=== PATIENT | female | born 1955 | race African-American/Black ===

== ENCOUNTER 2020-01-08 09:53 | Outpatient (REF) | payer OTHER, SELFPAY ==
--- NOTE | 2020-01-08 10:01 | XR_ITS ---
EXAMINATION: XR HIP, LEFT CLINICAL INFORMATION: Left hip pain COMPARISON: CT pelvis 07/19/2018 TECHNIQUE: AP view pelvis is performed along with AP and frog-lateral projections left hip. FINDINGS: There is no fracture, dislocation, destructive process. 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 The bony pelvis shows no destructive process. There are scattered surgical clips overlying the lower abdomen and central pelvis and anchors overlying the superior pubic rami. Bowel gas unremarkable. The left hip shows no fracture or dislocation or destructive process. No focal hip narrowing or subchondral sclerosis or erosive change. Bilateral hip soft tissue planes symmetric. IMPRESSION: Unremarkable left hip.
== END 2020-01-08 09:54 | disposition home or self-care (01) ==
LOC: HO.XRAY 09:53
PROVIDERS: PCP Physician Assistant; Visit Provider Physician Assistant
DX: M25.552 Pain in left hip (principal); Z91.81 History of falling
CPT/HCPCS: 73502

== ENCOUNTER 2020-02-09 14:05 | Outpatient (REF) | payer OTHER, SELFPAY ==
[2020-02-10 13:54] LABS: CT PCR NOT DETECTED (Not Detect.); NG PCR NOT DETECTED (Not Detect.)
== END 2020-02-09 14:06 | disposition home or self-care (01) ==
LOC: HO.LAB 14:05
PROVIDERS: PCP Physician Assistant; Referring Provider Physician Assistant; Visit Provider Advanced Practice Midwife
DX: Z01.419 Encounter for gynecological examination (general) (routine) without abnormal findings (principal); Z20.2 Contact with and (suspected) exposure to infections with a predominantly sexual mode of transmission; F17.210 Nicotine dependence, cigarettes, uncomplicated
CPT/HCPCS: 87491; 87591

== ENCOUNTER 2020-02-26 11:40 | Outpatient (REF) | payer OTHER, SELFPAY ==
[2020-02-26 13:52] LABS: Syphilis Screen Nonreactive (Nonreactive)
[2020-02-28 08:15] LABS: HBsAGNum1 0.23 S/CO (0.00-0.99); Hepatitis B Surface Antigen Negative (Negative)
[2020-02-28 08:39] LABS: HIV AB/AG Nonreactive (Nonreactive); HIV Num 1 0.08 S/CO (0.00-0.99); ~HepC Num1 0.11 S/CO (0.00-0.79); ~Hepatitis C Antibody Nonreactive (Nonreactive)
== END 2020-02-26 11:41 | disposition home or self-care (01) ==
LOC: HO.LAB 11:40
PROVIDERS: PCP Physician Assistant; Visit Provider Advanced Practice Midwife
DX: Z20.2 Contact with and (suspected) exposure to infections with a predominantly sexual mode of transmission (principal)
CPT/HCPCS: 86780; 86803; 87340; 87389

== ENCOUNTER 2020-05-08 15:19 | Outpatient (REF) | payer OTHER, SELFPAY ==
--- NOTE | ~2020-05-08 | MM_ITS ---
EXAMINATION: MM SCREENING DIGITAL BREAST TOMOSYNTHESIS, BILATERAL CLINICAL INFORMATION: Screening. Asymptomatic. The lifetime risk of breast cancer based on the Tyrer-Cuzick Model is 2%. COMPARISON: Mammography: 07/11/2018, outside exam 12/11/2016 ([facility]). TECHNIQUE: Digital breast tomosynthesis is performed in both the craniocaudal and mediolateral oblique views along with computer-aided detection (CAD). Synthesized 2D images are generated from the tomosynthesis. FINDINGS: There are scattered areas of fibroglandular density (ACR BI-RADS breast composition Category b). There are no significant masses, abnormal calcifications, or other abnormalities. The axilla and skin contours are unremarkable. The punctate densities bilateral axilla noted on prior study are not present on current MLO views, suggesting prior deodorant artifact as suspected. No significant changes. MM/MM tomosynthesis screening BI IMPRESSION: No mammographic evidence of malignancy. ASSESSMENT: BI-RADS 1: Negative RECOMMENDATION: Routine annual mammography screening. This patient's information was entered into a reminder system with a target due date for their next mammogram.
== END 2020-05-08 15:20 | disposition home or self-care (01) ==
LOC: HO.MAMMO 15:19
PROVIDERS: Visit Provider Advanced Practice Midwife
DX: Z12.31 Encounter for screening mammogram for malignant neoplasm of breast (principal)
CPT/HCPCS: 77062; 77063; 77066; 77067

== ENCOUNTER 2020-05-31 08:29 | Outpatient (REF) | payer OTHER, SELFPAY ==
[2020-05-31 09:39] LABS: Hematocrit 38.8 % (37-47); Hemoglobin 12.5 g/dl (12.0-16.0); Mean Corpuscular HGB Conc 32.2 g/dl (31.0-35.0); Mean Corpuscular Hemoglobin 31.4 pg (27.0-33.0); Mean Corpuscular Volume 97.5 fL (80-98); Mean Platelet Volume 10.8 fL (9.4-12.3); Platelet Count 212 X10*3/uL (160-400); Red Blood Count 3.98 X10*6/uL (4.20-5.50); Red Cell Distribution Width 13.1 % (11.0-16.0); White Blood Count 5.8 X10*3/uL (4.8-10.8)
[2020-05-31 10:15] LABS: Alanine Aminotransferase < 6 U/L (0-31); Alkaline Phosphatase 85 U/L (39-117); Anion Gap 10 (12-20); Aspartate Amino Transferase 14 U/L (5-31); Bilirubin Total 0.3 mg/dL (0.0-1.0); Blood Urea Nitrogen 16 mg/dL (9-16); Carbon Dioxide 30 mmol/L (22-29); Chloride 109 mmol/L (96-108); Cholesterol 153 mg/dL; Estimated Glomerular Filt Rate > 60; Glucose Fasting 89 mg/dL (60-99); HDL Cholesterol 53 mg/dL; LDL Cholesterol Calculated 87 mg/dl; Potassium 4.2 mmol/L (3.3-5.1); Sodium 145 mmol/L (135-145); Total Protein 6.8 g/dL (6.5-8.0); Triglycerides 65 mg/dL
[2020-05-31 10:23] LABS: TSH reflex Free T4 0.86 uIU/mL (0.32-4.0)
== END 2020-05-31 08:30 | disposition home or self-care (01) ==
LOC: HO.LAB 08:29
PROVIDERS: PCP Physician Assistant; Visit Provider Physician Assistant
DX: I10 Essential (primary) hypertension (principal); Z13.1 Encounter for screening for diabetes mellitus; Z13.29 Encounter for screening for other suspected endocrine disorder; Z13.220 Encounter for screening for lipoid disorders
CPT/HCPCS: 36415; 80053; 80061; 84443; 85027

== ENCOUNTER → 2020-06-04 15:16 | Outpatient (BNVA) | payer OTHER, SELFPAY | PROVIDERS: Visit Provider Advanced Practice Midwife | DX: Z13.89 Encounter for screening for other disorder (principal) | CPT/HCPCS: Q3014 ==

== ENCOUNTER 2020-09-09 12:50 | Outpatient (REF) | payer OTHER, SELFPAY ==
[2020-09-09 13:21] LABS: Hematocrit 36.9 % (37-47); Hemoglobin 11.6 g/dl (12.0-16.0); Mean Corpuscular HGB Conc 31.4 g/dl (31.0-35.0); Mean Corpuscular Hemoglobin 30.9 pg (27.0-33.0); Mean Corpuscular Volume 98.4 fL (80-98); Mean Platelet Volume 10.7 fL (9.4-12.3); Platelet Count 212 X10*3/uL (160-400); Red Blood Count 3.75 X10*6/uL (4.20-5.50); Red Cell Distribution Width 12.8 % (11.0-16.0); White Blood Count 6.8 X10*3/uL (4.8-10.8)
[2020-09-09 13:39] LABS: Anion Gap 10 (12-20); Blood Urea Nitrogen 18 mg/dL (9-16); Carbon Dioxide 26 mmol/L (22-29); Chloride 111 mmol/L (96-108); Estimated Glomerular Filt Rate > 60; Glucose Random 86 mg/dL (60-115); Sodium 143 mmol/L (135-145)
[2020-09-09 14:03] LABS: TSH reflex Free T4 0.68 uIU/mL (0.32-4.0)
== END 2020-09-09 12:51 | disposition home or self-care (01) ==
LOC: HO.LAB 12:50
PROVIDERS: PCP Physician Assistant; Visit Provider Physician Assistant
DX: Z13.29 Encounter for screening for other suspected endocrine disorder (principal); I10 Essential (primary) hypertension; J41.0 Simple chronic bronchitis
CPT/HCPCS: 36415; 80048; 84443; 85027

== ENCOUNTER 2020-11-26 14:41 | Emergency (ER) | payer OTHER, SELFPAY ==
--- NOTE | 2020-11-26 15:37 | PC.NURSE ---
called to triage x 2 no answer
== END 2020-11-26 17:57 | disposition left against medical advice (07) ==
PROVIDERS: Emergency Provider Emergency Medicine; PCP Physician Assistant
DX: R10.9 Unspecified abdominal pain (principal)

== ENCOUNTER 2020-11-29 11:51 | Outpatient (REF) | payer OTHER, SELFPAY ==
[2020-11-29 12:06] LABS: MANUAL DIFF FLAG NO
[2020-11-29 12:07] LABS: Basophils Percent Auto 0.5 % (0-2); Eosinophils Absolute Auto 0.1 X10*3/uL (0.0-0.4); Eosinophils Percent Auto 1.5 % (0-4); Hematocrit 35.7 % (37-47); Hemoglobin 11.8 g/dl (12.0-16.0); Imm Gran Abs Auto 0.01 X10*3/uL (0.00-0.03); Imm Gran Pct Auto 0.2 % (0.0-0.4); Lymphocytes Absolute Auto 2.4 X10*3/uL (1.2-4.9); Lymphocytes Percent Auto 43.7 % (20-40); Mean Corpuscular HGB Conc 33.1 g/dl (31.0-35.0); Mean Corpuscular Hemoglobin 31.6 pg (27.0-33.0); Mean Corpuscular Volume 95.5 fL (80-98); Mean Platelet Volume 10.3 fL (9.4-12.3); Monocytes Absolute Auto 0.6 X10*3/uL (0.1-1.2); Monocytes Percent Auto 10.7 % (2-11); Neutrophils Absolute Auto 2.4 X10*3/uL (2.0-8.3); Neutrophils Percent Auto 43.4 % (45-73); Platelet Count 229 X10*3/uL (160-400); Red Blood Count 3.74 X10*6/uL (4.20-5.50); Red Cell Distribution Width 13.6 % (11.0-16.0); White Blood Count 5.5 X10*3/uL (4.8-10.8)
[2020-11-29 12:27] LABS: Lactic Acid 0.9 mmol/L (0.5-2.0)
[2020-11-29 12:44] LABS: Alanine Aminotransferase < 6 U/L (0-31); Albumin Level 3.9 g/dL (3.5-5.0); Alkaline Phosphatase 80 U/L (39-117); Anion Gap 11 (12-20); Aspartate Amino Transferase 13 U/L (5-31); Bilirubin Direct 0.2 mg/dL (0.0-0.5); Bilirubin Total 0.4 mg/dL (0.0-1.0); Blood Urea Nitrogen 12 mg/dL (9-16); Calcium 9.5 mg/dL (8.4-10.2); Carbon Dioxide 24 mmol/L (22-29); Chloride 107 mmol/L (96-108); Estimated Glomerular Filt Rate > 60; Glucose Random 79 mg/dL (60-115); Potassium 4.3 mmol/L (3.3-5.1); Sodium 138 mmol/L (135-145); Total Protein 6.8 g/dL (6.5-8.0)
== END 2020-11-29 11:52 | disposition home or self-care (01) ==
LOC: HO.LAB 11:51
PROVIDERS: PCP Physician Assistant; Visit Provider Physician Assistant
DX: Z20.822 Contact with and (suspected) exposure to COVID-19 (principal); N12 Tubulo-interstitial nephritis, not specified as acute or chronic; R10.9 Unspecified abdominal pain
CPT/HCPCS: 36415; 80048; 80076; 83605; 85025

== ENCOUNTER 2021-02-10 14:32 | Outpatient (REF) | payer OTHER, SELFPAY ==
[2021-02-15 04:27] LABS: HPV 16 RNA NOT DETECTED (NOT DETECTED); HPV mRNA E6/E7 rflx Detected (Not Detected)
== END 2021-02-10 14:33 | disposition home or self-care (01) ==
LOC: HO.LAB 14:32
PROVIDERS: Advanced Practice Midwife; Visit Provider Advanced Practice Midwife
DX: Z01.419 Encounter for gynecological examination (general) (routine) without abnormal findings (principal); N95.1 Menopausal and female climacteric states; N95.2 Postmenopausal atrophic vaginitis; B37.2 Candidiasis of skin and nail; F17.210 Nicotine dependence, cigarettes, uncomplicated; Z71.6 Tobacco abuse counseling
CPT/HCPCS: 87624; 87625; 88142

== ENCOUNTER 2021-03-04 15:33 | Outpatient (REF) | payer OTHER, SELFPAY ==
--- NOTE | ~2021-03-04 | XR_ITS ---
EXAMINATION: XR ABDOMEN COMPLETE CLINICAL INDICATION: Gastroesophageal reflux COMPARISON: None TECHNIQUE: 2 views of the abdomen. FINDINGS: Nonspecific bowel gas pattern, no evidence of bowel obstruction. No free air under the diaphragm. Included lung bases are clear. There are surgical clips. Osseous structures grossly unremarkable. XR/XR abdomen 3V IMPRESSION: Nonspecific bowel gas pattern. No evidence of obstruction.
[2021-03-04 16:12] LABS: Hematocrit 39.3 % (37.0-47.0); Hemoglobin 12.7 g/dl (12.0-16.0); Mean Corpuscular HGB Conc 32.3 g/dl (31.0-35.0); Mean Corpuscular Hemoglobin 31.7 pg (27.0-33.0); Mean Platelet Volume 10.4 fL (9.4-12.3); Platelet Count 205 X10*3/uL (160-400); Red Blood Count 4.01 X10*6/uL (4.20-5.50); Red Cell Distribution Width 13.1 % (11.0-16.0); White Blood Count 8.4 X10*3/uL (4.8-10.8)
[2021-03-04 16:29] LABS: Alanine Aminotransferase 6 U/L (0-31); Albumin Level 4.4 g/dL (3.5-5.0); Alkaline Phosphatase 85 U/L (39-117); Anion Gap 15 (12-20); Aspartate Amino Transferase 14 U/L (5-31); Bilirubin Total 0.4 mg/dL (0.0-1.0); Blood Urea Nitrogen 20 mg/dL (9-16); Calcium 9.9 mg/dL (8.4-10.2); Carbon Dioxide 25 mmol/L (22-29); Chloride 105 mmol/L (96-108); Cholesterol 166 mg/dL; Estimated Glomerular Filt Rate > 60; Glucose Fasting 81 mg/dL (60-99); HDL Cholesterol 60 mg/dL; Iron 96 mcg/dL (30-160); LDL Cholesterol Calculated 94 mg/dl; Percent Iron Saturation 31 % (15-50); Potassium 3.8 mmol/L (3.3-5.1); Sodium 141 mmol/L (135-145); Total Iron Binding Capacity 306 mcg/dL (228-428); Total Protein 7.6 g/dL (6.5-8.0); Triglycerides 62 mg/dL; Unsaturated Iron Binding 210 ug/dL
[2021-03-04 16:49] LABS: TSH reflex Free T4 1.37 uIU/mL (0.32-4.0)
[2021-03-04 17:00] LABS: Folate 15.3 ng/mL (> or = 4.0); Vitamin B12 323 pg/mL (200-900)
== END 2021-03-04 15:34 | disposition home or self-care (01) ==
LOC: HO.XRAY 15:33
PROVIDERS: PCP Physician Assistant; Visit Provider Physician Assistant
DX: Z13.29 Encounter for screening for other suspected endocrine disorder (principal); Z13.220 Encounter for screening for lipoid disorders; K21.9 Gastro-esophageal reflux disease without esophagitis; D50.9 Iron deficiency anemia, unspecified
CPT/HCPCS: 36415; 74021; 80048; 80053; 80061; 82607; 82746; 83540; 84443; 85027

== ENCOUNTER 2021-03-19 09:22 | Outpatient (REF) | payer OTHER, SELFPAY ==
--- NOTE | ~2021-03-19 | XR_ITS ---
EXAMINATION: LEFT SHOULDER 3 VIEWS. RIGHT KNEE 3 VIEWS. CLINICAL INFORMATION: Pain. Pain. COMPARISON: None TECHNIQUE: 3 views of the left shoulder. 3 views of the right knee. FINDINGS: Left shoulder: No fracture, dislocation or destructive lesion. AC joint intact. No erosive change. Right knee: Bone density normal. No joint effusion, fracture, dislocation or destructive process. XR/XR knee RT 3V IMPRESSION: Unremarkable studies.
--- NOTE | ~2021-03-19 | XR_ITS ---
EXAMINATION: LEFT SHOULDER 3 VIEWS. RIGHT KNEE 3 VIEWS. CLINICAL INFORMATION: Pain. Pain. COMPARISON: None TECHNIQUE: 3 views of the left shoulder. 3 views of the right knee. FINDINGS: Left shoulder: No fracture, dislocation or destructive lesion. AC joint intact. No erosive change. Right knee: Bone density normal. No joint effusion, fracture, dislocation or destructive process. XR/XR shoulder LT min 2V IMPRESSION: Unremarkable studies.
== END 2021-03-19 09:23 | disposition home or self-care (01) ==
LOC: HO.XRAY 09:22
PROVIDERS: PCP Physician Assistant; Visit Provider Physician Assistant
DX: M25.561 Pain in right knee (principal); M25.512 Pain in left shoulder
CPT/HCPCS: 73030; 73562

== ENCOUNTER 2021-04-21 15:00 | Outpatient (RCR) | payer OTHER, SELFPAY ==
--- NOTE | 2021-04-11 13:21 | MHC.PT.EP ---
[facility] [place] [facility] [address] [phone] F: [phone] F: [phone] F: [phone] F: [phone] Physical Therapy Plan of Care Date of Evaluation: Date of Surgery: Diagnosis: LEFT SHOULDER PAIN Assessment: JILL IS A PLEASANT 65 YO FEMALE WHO PRESENTS WITH INCREASING SHOULDER PAIN, NO REGAN. UPON EXAM IMPAIRMENTS INCLUDE DECREASED ROM AND STRENGTH, ALTERED POSTURE AND POSITIONING, DECREASED SOFT TISSUE MOBILITY AND INCREASED PAIN. FUNCTIONAL LIMITATIONS INCLUDE DECREASED ABILITY TO PERFORM HOMEMAKING AND SELF CARE TASKS, DECREASED ABILITY TO CARE FOR ADULT SON, DECREASED ABILITY TO PERFORM LIFTING, REACHING, PUSHING, PULLING AND CARRYING. SHE REPORTS DISRUPTED SLEEP. Frequency and Duration: The patient will be seen 2 X WEEKS FOR 4 WEEKS Short Term Goals: INITATE HEP AND PROMOTE SELF MANAGEMENT OF SYMPTOMS [employer] Goals: Full, pain free ROM in 4 weeks Full UE strength, pain free in 4 weeks To perform computer and work tasks without restriction and pain no greater than 2/10 in [address] at minimum of 5# into cabinet at shoulder height in 4 weeks Treatment Plan: Modalities to reduce pain, spasms and effusion. Manual therapy to restore motion and function. Therapeutic exercise to improve strength and flexibility. Neuromuscular re-education for posture and balance. Therapeutic activities to return to functional activities of daily living. Electronically signed by: FRANKIE MACIAS PT, DPT Please sign and return to therapist. Thank you for your referral.
== END 2021-05-20 09:06 | disposition home or self-care (01) ==
LOC: HO.PT 15:00
PROVIDERS: PCP Physician Assistant; Visit Provider Nurse Practitioner Family
DX: M25.512 Pain in left shoulder (principal)
CPT/HCPCS: 97033; 97110; 97140; 97161; 97535

== ENCOUNTER 2022-07-28 10:00 | Outpatient (REF) | payer MEDICARE, SELFPAY ==
[2022-07-28 10:26] LABS: Hematocrit 40.2 % (37.0-47.0); Hemoglobin 13.2 g/dl (12.0-16.0); Mean Corpuscular HGB Conc 32.8 g/dl (31.0-35.0); Mean Corpuscular Hemoglobin 31.3 pg (27.0-33.0); Mean Corpuscular Volume 95.3 fL (80.0-98.0); Mean Platelet Volume 10.9 fL (9.4-12.3); Platelet Count 192 X10*3/uL (160-400); Red Blood Count 4.22 X10*6/uL (4.20-5.50); Red Cell Distribution Width 13.1 % (11.0-16.0); White Blood Count 7.8 X10*3/uL (4.8-10.8)
[2022-07-28 12:15] LABS: Alanine Aminotransferase 9 U/L (0-31); Albumin Level 4.3 g/dL (3.5-5.0); Alkaline Phosphatase 99 U/L (39-117); Anion Gap 12 (12-20); Aspartate Amino Transferase 24 U/L (5-31); Bilirubin Total 0.9 mg/dL (0.0-1.0); Blood Urea Nitrogen 16 mg/dL (9-16); Carbon Dioxide 24 mmol/L (22-29); Chloride 110 mmol/L (96-108); Cholesterol 133 mg/dL; Estimated Glomerular Filt Rate > 60; Glucose Fasting 92 mg/dL (60-99); HDL Cholesterol 65 mg/dL; LDL Cholesterol Calculated 57 mg/dl; Potassium 5.1 mmol/L (3.3-5.1); Sodium 141 mmol/L (135-145); Total Protein 7.8 g/dL (6.5-8.0); Triglycerides 57 mg/dL
[2022-07-28 12:16] LABS: TSH reflex Free T4 1.84 uIU/mL (0.32-4.0)
== END 2022-07-28 10:01 | disposition home or self-care (01) ==
LOC: HO.LAB 10:00
PROVIDERS: PCP Physician Assistant; Visit Provider Physician Assistant
DX: E78.5 Hyperlipidemia, unspecified (principal)
CPT/HCPCS: 36415; 80053; 80061; 84443; 85027

== ENCOUNTER 2022-08-25 14:48 | Inpatient (IN) | payer MEDICARE, SELFPAY ==
--- NOTE | ~2022-08-25 | CT_ITS ---
EXAMINATION: CT ABDOMEN AND PELVIS WITHOUT CONTRAST CLINICAL INFORMATION: UTI not responding to antibiotics. COMPARISON: 07/19/2018 TECHNIQUE: Multidetector volumetric imaging was performed from the superior aspect of the liver through the pubic symphysis. Sagittal and coronal reformatted images were obtained on the technologist's workstation. This CT examination was performed using dose optimization techniques as appropriate, variously including the following: *Automated exposure control *Adjustment of mA and/or kV according to patient size (this includes techniques or standardized protocols for targeted exams where dose is matched to indication/reason for exam; i.e. extremities or head) *Use of iterative reconstruction technique DLP: 339 mGy-cm FINDINGS: LUNG BASES: Coronary artery calcifications. The lung bases are clear. LIVER, GALLBLADDER, AND BILIARY TREE: The liver is normal in size, shape, and attenuation. No biliary ductal dilatation. Subcentimeter hypoattenuating lesions are too small to fully characterize.. Contracted gallbladder which is not well assessed. PANCREAS: Unremarkable. SPLEEN: Unremarkable. ADRENAL GLANDS: Unremarkable. KIDNEYS AND URETERS: There is no hydronephrosis. Gas within the right renal collecting system is noted, consistent with emphysematous pyelitis. No surrounding inflammatory changes. Calcification in the right midpole renal cortex. There is a left upper pole renal calculus measuring 1.4 x 0.6 cm. This measures 790 Hounsfield units and is 7.5 cm from the posterior axillary line. BLADDER: Normally distended bladder without wall thickening. Gas within the bladder lumen. GASTROINTESTINAL TRACT: The stomach is unremarkable. Normal caliber small bowel. No obstruction. Anastomosis noted in the anterior midabdomen. Moderate colonic stool burden. No free air or free fluid. ABDOMINAL WALL: No significant hernia is appreciated. LYMPH NODES: Normal. VASCULAR: Normal caliber aorta with moderate atherosclerotic calcifications. PELVIC VISCERA: No pelvic mass. OSSEOUS STRUCTURES: No acute or suspicious osseous abnormality. Mild degenerative changes in the hips. CT/CT abdomen pelvis wo IV con IMPRESSION: 1. Gas within the right renal collecting system, consistent with emphysematous pyelitis. No surrounding inflammatory changes. Gas also present within the bladder lumen. 2. Nonobstructing left upper pole renal calculus. Fleischner guidelines were followed.
[2022-08-25 15:31] VITALS: BP 116/79; PULSE 88; RESP 20; TEMP 37.1; O2SAT 97; BMI 22.7
--- NOTE | 2022-08-25 15:31 | ED.FEMALEGU ---
HPI - Female Genitourinary General Chief complaint: Urogenital-Female Stated complaint: UTI Time Seen by Provider: 08/25/22 18:58 Source: patient Mode of arrival: ambulatory Limitations: no limitations History of Present Illness HPI Narrative: This is a 66-year-old female history of latent tuberculosis, COPD, diabetes, anxiety, recurrent UTIs, prolonged QT, hyperlipidemia, major depression presenting for evaluation of urinary frequency, dark urine, suprapubic discomfort, bilateral flank pain for the past week or so worsening. Patient reports she was recently diagnosed with a UTI and she thinks her symptoms are worsening despite being on Macrobid for symptoms. Patient tells me she self catheterizes. She reports that since she started the Macrobid her symptoms have significantly worsened. Patient reports fevers at home T-max today 100.4 degrees F taking Tylenol with relief. Patient tells me she feels awful and she has had a history of urosepsis in the past with UTIs that are difficult to treat with antibiotic she tells me. Patient denies chest pain, shortness of breath, nausea, vomiting, headache, vision changes, changes in bowel habits, hematuria. Related Data Home Medications Medication Instructions Recorded Confirmed metoprolol tartrate 25 mg tablet 12.5 mg PO BID 02/09/20 08/25/22 oxcarbazepine 300 mg tablet 300 mg PO BID 02/09/20 08/25/22 cyclosporine 0.05 % eye drops in a 1 drp ophthalmic (eye) Q12H 02/10/21 08/25/22 dropperette (Restasis) atorvastatin 40 mg tablet 40 mg PO DAILY 06/23/22 08/25/22 fluticasone propionate 50 1 spray intranasal BID 08/25/22 08/25/22 mcg/actuation nasal spray,suspension methenamine hippurate 1 gram tablet 1 g PO DAILY 08/25/22 08/25/22 nitrofurantoin 1 cap PO BID 08/25/22 08/25/22 monohydrate/macrocrystals 100 mg capsule omeprazole 20 mg capsule,delayed 20 mg PO DAILY@0630 08/25/22 08/25/22 release propylene glycol 1 %-glycerin 0.3 1 drp ophthalmic (eye) TID 08/25/22 08/25/22 % eye drops (Artificial Tears (glycerin-peg)) Previous Rx's Medication Instructions Recorded ascorbic acid (vitamin C) 500 mg 500 mg PO DAILY 90 days #90 tabs 12/16/20 tablet cetirizine 10 mg tablet 10 mg PO DAILY 90 days #90 tabs 06/10/21 albuterol sulfate 90 mcg/actuation 2 puff inhalation Q4H PRN 06/23/22 aerosol inhaler shortness of breath or wheezing 30 days #8.5 grams cholecalciferol (vitamin D3) 25 25 mcg PO DAILY #30 caps 06/23/22 mcg (1,000 unit) capsule (Vitamin D3) clonazepam 0.5 mg tablet 0.5 mg PO BID PRN anxiety 30 days 06/23/22 #60 tabs fluticasone propionate 110 110 mcg inhalation BID 30 days #12 06/23/22 mcg/actuation HFA aerosol inhaler grams zolpidem 10 mg tablet 10 mg PO BEDTIME 7 days #7 tabs 08/18/22 Allergies Allergy/AdvReac Type Severity Reaction Status Date / Time lamotrigine [From Lamictal] Allergy Mild RASH Verified 08/25/22 15:36 doxycycline [DOXYCYCLINE] Allergy Unknown stomach Verified 08/25/22 15:36 upset nefazodone [From Serzone] Allergy Unknown unknown Verified 08/25/22 15:36 penicillin V AdvReac Unknown vomitting, Verified 08/25/22 15:36 nausea bupropion [From Wellbutrin] AdvReac dizziness, Verified 08/25/22 15:36 shakiness Environmental Allergy Unknown SEASONAL Uncoded 06/23/22 16:04 NASAL DRIP, ITCHY EYES TEA AdvReac Mild NAUSEA & Uncoded 06/23/22 16:04 VOMITING TUNA FISH AdvReac Mild NAUSEA & Uncoded 06/23/22 16:04 VOMITIING Review of Systems Review of Systems: Constitutional : No Weight loss, No Fever, No Chills, No Fatigue, No Malaise ENT/Mouth : No sore throat, No Rhinorrhea Eyes: No Eye Pain, No Swelling, No Redness Cardiovascular : No Chest Pain, No SOB, No Dyspnea on Exertion, No Orthopnea, No Edema, No Palpitations Respiratory : No Cough, No Sputum, No Wheezing Gastrointestinal : No Nausea, No Vomiting, No Diarrhea, No Constipation, No abdominal Pain, No Hematochezia, No Melena Genitourinary : No Dysuria, + Urinary Frequency, No Hematuria, + dark urine Musculoskeletal : No joint pain, No Myalgias, No Joint Swelling Skin : No Skin Lesions, No rash Neuro : No Weakness, No Numbness, No Dizziness, No Headache Psych : No Anxiety/Panic, No Depression All other systems reviewed and are negative Yes all other systems are reviewed and are negative [facility] Past Medical History Attestation statement: The following information was validated with the patient. Source: old records reviewed and nursing notes reviewed Medical History Bipolar 1 disorder Bladder cancer Bronchitis COPD (chronic obstructive pulmonary disease) Depression GERD (gastroesophageal reflux disease) Insomnia Narrow angle glaucoma suspect PTSD (post-traumatic stress disorder) Sarcoid Surgical History History of bladder surgery History of dental surgery History of eye surgery Hx of cataract surgery Hx of hysterectomy Family History Family History Father Lung cancer Mother Seizure HTN (hypertension) Diabetes mellitus Pacemaker Son In good health Maternal Grandmother Ovarian cancer Other Mental problem Social History Social History Housing: Homeless Alcohol intake: never Patient Tobacco Use Status: Current everyday Tobacco user Tobacco use type: Cigarette Cigarette Packs Per Day: 0.5 Cigarettes Per Day: 7 Smoked in Last 30 Days: No e-Cigarette/Vaping Use: Never Used Second Hand Smoke Exposure: Yes Use of substances other than those prescribed or required for medical reasons: No Advance Directives: No Advance Directives Information Provided: No service: No Current occupational status: disabled Sexual orientation: Straight/Heterosexual Gender identity: Female Cognitive needs: No Hearing needs: No Vision needs: Yes (glasses) Physical Exam Vital Signs: Vital Signs: Last Vital Signs Temp 98.1 F 08/25/22 20:24 Pulse 70 08/25/22 20:24 Resp 18 08/25/22 20:24 BP 99/67 08/25/22 20:24 Pulse Ox 98 08/25/22 20:24 O2 Del Method Room Air 08/25/22 20:24 BMI result Body Mass Index 22.7 vss Appearance: Alert.? Oriented X3.? No acute distress.? Head: Normocephalic, atraumatic, no step-offs or deformities Eyes: Pupils equal, round and reactive to light.?? CVS: Normal heart rate and rhythm.? Pulses normal.? Respiratory: No respiratory distress.? Breath sounds normal.? Abdomen: Soft and suprapubic abdominal discomfort.? Skin: Skin warm and dry.? Normal skin color.? Normal skin turgor.? Extremities: No lower extremity edema.? No calf ttp. 5/5 strength to bilateral upper and lower extremities Back: No midline tenderness, no C-spine tenderness, full range of motion, + CVA tenderness bilaterally Neuro: Oriented X 3.? No motor deficit.? No sensory deficit. CN 2-12 intact Course Course Course Narrative: RME - 66 yo female with history of urinary retention, hx bladder augmentation surgery 2000, who self catheterized at home, hx recurrent UTIs, sepsis 2/2 UTI/pyelonephritis in the past with recently diagnosed UTI 3 days ago on Macrobid who presents to the ER for ongoing / worsening symptoms. Endorses low back pain, bilateral flank pain, suprapubic pain and dysuria. Temp 100 this morning, nauseated but no vomiting. Afebrile and nontoxic appearing in triage. Plan: UA and basic labs Reevaluation(s) Reevaluation #1: Patient's CBC appears to be within normal limits. Chemistry unremarkable. No acute electrolyte abnormalities requiring intervention. UA grossly infected. CT abdomen and pelvis pending. Time: 20:08 Reevaluation #2: Patient refusing CT scan with IV contrast will obtain dry scan due to patient refusing. Time: 21:38 Reevaluation #3: CT of the abdomen pelvis with gas within the renal collecting system consistent with emphysematous pyelitis. No surrounding inflammatory changes. Gas also within the urinary bladder lumen. Nonobstructing left upper pole renal calculus. Hospitalist aware of CT findings. Patient was treated with ceftriaxone. Patient to be admitted to the hospital at this time. Time: 22:43 Medications Administered Generic Name Dose Route Start Last Admin Trade Name Freq PRN Reason Stop Dose Admin Enoxaparin Sodium 40 mg 08/25/22 21:00 08/25/22 20:45 Enoxaparin Sodium 40 Mg/0.4 Ml Syringe SUBCUT 40 mg Q24H DREW Administration Sodium Chloride 3 ml 06/07/23 00:00 08/25/22 21:38 0.9 % Sodium Chloride Flush 3 Ml Syringe IVFLUSH Not Given QSHIFT DREW Discontinued Medications Generic Name Dose Route Start Last Admin Trade Name Simon PRN Reason Stop Dose Admin Sodium Chloride 1,000 mls @ 999 mls/hr 08/25/22 20:15 08/25/22 20:45 Ns IV 08/25/22 21:15 999 mls/hr .Q1H1M DREW Administration Ceftriaxone Sodium 1 gm/ 50 mls @ 100 mls/hr 08/25/22 20:08 08/25/22 21:36 Sodium Chloride IV 08/25/22 20:37 Infused ONCE ONE Infusion Sodium Chloride 1,000 mls @ 999 mls/hr 08/25/22 20:45 08/25/22 21:37 Ns IV 08/25/22 21:45 999 mls/hr .Q1H1M DREW Administration Medical Decision Making Medical Decision Making [facility] Narrative: 66-year-old female presents with dark urine, urinary frequency, suprapubic discomfort, bilateral flank pain for the past week worsening, despite Macrobid. Patient self catheterizes. History of urosepsis. Physical exam with bilateral CVA tenderness, suprapubic discomfort on exam. Patient's vital signs are stable. Concerns for possible complicated UTI versus pyelo versus UTI that is not resolving. Unlikely acute abdomen, kidney stones, obstructing uropathy. Will rule out metabolic derangements. Plan labs, urine, imaging. Patient will likely require inpatient admission as she is failing outpatient therapy. Differential Diagnosis Differential Diagnoses: The differential diagnosis associated with the presentation includes Concerns for possible complicated UTI versus pyelo versus UTI that is not resolving. Unlikely acute abdomen, kidney stones, obstructing uropathy. Will rule out metabolic derangements. Admission/Observation Consideration of admission/observation: Escalation of care including admission/observation considered Lab Data [facility] Lab Attestation statement: I reviewed the patient's lab results. 08/25/22 16:12 08/25/22 16:12 Labs: Lab Results 08/25/22 08/25/22 08/25/22 Range/Units 16:12 16:12 18:18 WBC 5.7 (4.8-10.8) X10*3/uL RBC 3.88 L (4.20-5.50) X10*6/uL Hgb 12.1 (12.0-16.0) g/dl Hct 37.3 (37.0-47.0) % MCV 96.1 (80.0-98.0) fL MCH 31.2 (27.0-33.0) pg MCHC 32.4 (31.0-35.0) g/dl RDW 13.0 (11.0-16.0) % Plt Count 204 (160-400) X10*3/uL MPV 10.5 (9.4-12.3) fL Immature Gran % (Auto) 0.2 (0.0-0.4) % Neut % (Auto) 41.1 L (45-73) % Lymph % (Auto) 43.9 H (20-40) % [place] % (Auto) 11.5 H (2-11) % Eos % (Auto) 2.1 (0-4) % Baso % (Auto) 1.2 (0-2) % Lymph # (Auto) 2.5 (1.2-4.9) X10*3/uL [place] # (Auto) 0.7 (0.1-1.2) X10*3/uL Eos # (Auto) 0.1 (0.0-0.4) X10*3/uL Baso # (Auto) 0.1 (0.0-0.2) X10*3/uL Abs Immat Gran (auto) 0.01 (0.00-0.03) X10*3/uL Absolute Neuts (auto) 2.4 (2.0-8.3) x10*3/uL Absolute Nucleated RBC 0.000 (0.0-0.012) X10*3/uL Nucleated RBC % (auto) 0.0 (0.0-0.2) /100WBC Sodium 144 (135-145) mmol/L Potassium 3.7 D (3.3-5.1) mmol/L Chloride 110 H (96-108) mmol/L Carbon Dioxide 27 (22-29) mmol/L Anion Gap 11 L (12-20) BUN 19 H (9-16) mg/dL Creatinine 0.76 (0.5-1.4) mg/dL Estim Creat Clear Calc 61.0 Estimated GFR > 60 Random Glucose 76 (60-115) mg/dL Lactic Acid (0.5-2.0) mmol/L Calcium 9.6 (8.4-10.2) mg/dL Urine Color Dark Yellow Urine Appearance Cloudy Urine pH 6.5 (5.0-9.0) Ur Specific [place] 1.015 (1.005-1.025) Urine Protein 30 (1+) H (Neg-Trace) mg/dL Urine Glucose (UA) Negative (Negative) mg/dL Urine Ketones Negative (Negative) mg/dL Urine Blood Small (1+) H (Negative) Urine Nitrite Positive H (Negative) Ur Leukocyte Esterase Large (3+) H (Negative) Urine RBC 3-5 H (0-2) /HPF Urine WBC >50 H (0-5) /HPF Ur Squamous Epith Cells 0-2 (0-2) /HPF Urine Bacteria Trace (None Seen) Hyaline Casts 0-2 (0-2) /LPF 08/25/22 Range/Units 20:05 WBC (4.8-10.8) X10*3/uL RBC (4.20-5.50) X10*6/uL Hgb (12.0-16.0) g/dl Hct (37.0-47.0) % MCV (80.0-98.0) fL MCH (27.0-33.0) pg MCHC (31.0-35.0) g/dl RDW (11.0-16.0) % Plt Count (160-400) X10*3/uL MPV (9.4-12.3) fL Immature Gran % (Auto) (0.0-0.4) % Neut % (Auto) (45-73) % Lymph % (Auto) (20-40) % [place] % (Auto) (2-11) % Eos % (Auto) (0-4) % Baso % (Auto) (0-2) % Lymph # (Auto) (1.2-4.9) X10*3/uL [place] # (Auto) (0.1-1.2) X10*3/uL Eos # (Auto) (0.0-0.4) X10*3/uL Baso # (Auto) (0.0-0.2) X10*3/uL Abs Immat Gran (auto) (0.00-0.03) X10*3/uL Absolute Neuts (auto) (2.0-8.3) x10*3/uL Absolute Nucleated RBC (0.0-0.012) X10*3/uL Nucleated RBC % (auto) (0.0-0.2) /100WBC Sodium (135-145) mmol/L Potassium (3.3-5.1) mmol/L Chloride (96-108) mmol/L Carbon Dioxide (22-29) mmol/L Anion Gap (12-20) BUN (9-16) mg/dL Creatinine (0.5-1.4) mg/dL Estim Creat Clear Calc Estimated GFR Random Glucose (60-115) mg/dL Lactic Acid 2.2 H* (0.5-2.0) mmol/L Calcium (8.4-10.2) mg/dL Urine Color Urine Appearance Urine pH (5.0-9.0) Ur Specific [place] (1.005-1.025) Urine Protein (Neg-Trace) mg/dL Urine Glucose (UA) (Negative) mg/dL Urine Ketones (Negative) mg/dL Urine Blood (Negative) Urine Nitrite (Negative) Ur Leukocyte Esterase (Negative) Urine RBC (0-2) /HPF Urine WBC (0-5) /HPF Ur Squamous Epith Cells (0-2) /HPF Urine Bacteria (None Seen) Hyaline Casts (0-2) /LPF Independent Interpretation I performed an independent interpretation of an: CT Scan Radiology Impression Discussion of test interpretation with radiology: I have reviewed the radiologist's reading. Core Measures AMI core measures followed: Yes Measure exclusions: not indicated Critical Care Time Critical Care Time Critical Care Time: No Discharge Plan Discharge Clinical Impression: UTI (urinary tract infection), Flank pain, acute Patient Disposition: Admitted As Inpatient
[2022-08-25 16:23] LABS: MANUAL DIFF FLAG NO
[2022-08-25 16:45] LABS: Anion Gap 11 (12-20); Blood Urea Nitrogen 19 mg/dL (9-16); Calcium 9.6 mg/dL (8.4-10.2); Carbon Dioxide 27 mmol/L (22-29); Chloride 110 mmol/L (96-108); Estimated Glomerular Filt Rate > 60; Glucose Random 76 mg/dL (60-115); Potassium 3.7 mmol/L (3.3-5.1); Sodium 144 mmol/L (135-145)
[2022-08-25 16:47] LABS: Basophils Absolute Auto 0.1 X10*3/uL (0.0-0.2); Basophils Percent Auto 1.2 % (0-2); Eosinophils Absolute Auto 0.1 X10*3/uL (0.0-0.4); Eosinophils Percent Auto 2.1 % (0-4); Hematocrit 37.3 % (37.0-47.0); Hemoglobin 12.1 g/dl (12.0-16.0); Imm Gran Abs Auto 0.01 X10*3/uL (0.00-0.03); Imm Gran Pct Auto 0.2 % (0.0-0.4); Lymphocytes Absolute Auto 2.5 X10*3/uL (1.2-4.9); Lymphocytes Percent Auto 43.9 % (20-40); Mean Corpuscular HGB Conc 32.4 g/dl (31.0-35.0); Mean Corpuscular Hemoglobin 31.2 pg (27.0-33.0); Mean Corpuscular Volume 96.1 fL (80.0-98.0); Mean Platelet Volume 10.5 fL (9.4-12.3); Monocytes Absolute Auto 0.7 X10*3/uL (0.1-1.2); Monocytes Percent Auto 11.5 % (2-11); Neutrophils Absolute Auto 2.4 x10*3/uL (2.0-8.3); Neutrophils Percent Auto 41.1 % (45-73); Platelet Count 204 X10*3/uL (160-400); Red Blood Count 3.88 X10*6/uL (4.20-5.50); White Blood Count 5.7 X10*3/uL (4.8-10.8)
[2022-08-25 18:27] LABS: Appearance Urine Cloudy; Color Urine Dark Yellow; Glucose Urine UA Negative (Negative); Leukocyte Esterase Urine Large (3+) (Negative); Nitrite Urine Positive (Negative); PH 6.5 (5.0-9.0); Specific Gravity - Urine 1.015 (1.005-1.025); UMIC TRIGGER UACC YES; Urine Blood Small (1+) (Negative); Urine Ketones Negative (Negative); Urine Protein 30 (1+) mg/dL (Neg-Trace)
[2022-08-25 18:38] LABS: Bacteria Urine Trace (None Seen); Hyaline Casts Urine 0-2 /LPF (0-2); Squamous Epithelial Cell Urine 0-2 /HPF (0-2); UACC Culture Trigger YES; WBC Urine >50 /HPF (0-5)
--- NOTE | 2022-08-25 20:15 | P.HPHOSP_ITS ---
History of Present Illness Date of Service: 08/25/22 Chief Complaint: Dysuria This is a 66-year-old female with pertinent history of mood disorder, QT prolongation on metoprolol, history of recurrent UTI due to self catheterization, insomnia, tobacco use disorder who presents to the emergency department for evaluation of dysuria. Patient states she has been having dysuria and increased frequency that has been ongoing for the last 2-3 days. Patient went to urgent care on Wednesday and was prescribed Macrobid. Patient states her symptoms did not improve with p.o. Macrobid. On the day of presentation, patient also with fevers and chills. States she was admitted with sepsis due to UTI a year ago and has frequent UTIs as she self catheterizes due to loss of bladder control. Patient admits nausea but denies vomiting, chest discomfort, palpitations, shortness of breath, changes in urinary or bowel habits. She also complains of bilateral flank discomfort that started on the day of presentation. In the emergency department, UA was concerning for UTI Review of Systems Constitutional: Constitutional: Reports chills, Reports fever(s) and Reports malaise Respiratory: Respiratory: Reports no additional respiratory complaints Gastrointestinal: Gastrointestinal: Reports nausea Genitourinary: Genitourinary: Reports dysuria and Reports urinary urgency [facility] Medical History Bipolar 1 disorder Bladder cancer Bronchitis COPD (chronic obstructive pulmonary disease) Depression GERD (gastroesophageal reflux disease) Insomnia Narrow angle glaucoma suspect PTSD (post-traumatic stress disorder) Sarcoid Family History Father Lung cancer Mother Seizure HTN (hypertension) Diabetes mellitus Pacemaker Son In good health Maternal Grandmother Ovarian cancer Other Mental problem Surgical History History of bladder surgery History of dental surgery History of eye surgery Hx of cataract surgery Hx of hysterectomy Social History Housing: Homeless Alcohol intake: never Patient Tobacco Use Status: Current everyday Tobacco user Tobacco use type: Cigarette Cigarette Packs Per Day: 0.5 Cigarettes Per Day: 7 Smoked in Last 30 Days: No e-Cigarette/Vaping Use: Never Used Second Hand Smoke Exposure: Yes Use of substances other than those prescribed or required for medical reasons: No Advance Directives: No Advance Directives Information Provided: No service: No Current occupational status: disabled Sexual orientation: Straight/Heterosexual Gender identity: Female Cognitive needs: No Hearing needs: No Vision needs: Yes (glasses) Meds Allergies Allergy/AdvReac Type Severity Reaction Status Date / Time lamotrigine [From Lamictal] Allergy Mild RASH Verified 08/25/22 15:36 doxycycline [DOXYCYCLINE] Allergy Unknown stomach Verified 08/25/22 15:36 upset nefazodone [From Serzone] Allergy Unknown unknown Verified 08/25/22 15:36 penicillin V AdvReac Unknown vomitting, Verified 08/25/22 15:36 nausea bupropion [From Wellbutrin] AdvReac dizziness, Verified 08/25/22 15:36 shakiness Environmental Allergy Unknown SEASONAL Uncoded 06/23/22 16:04 NASAL DRIP, ITCHY EYES TEA AdvReac Mild NAUSEA & Uncoded 06/23/22 16:04 VOMITING TUNA FISH AdvReac Mild NAUSEA & Uncoded 06/23/22 16:04 VOMITIING Active Medications: Current Medications Sodium Chloride (Ns) 1,000 mls @ 999 mls/hr IV .Q1H1M DREW Stop: 08/25/22 21:15 Ceftriaxone Sodium 1 gm/ (Sodium Chloride) 50 mls @ 100 mls/hr IV ONCE ONE Stop: 08/25/22 20:37 Pharmacy Consult (Consult Rx Perform Med Rec) 1 each MISCELLANE ONCE PRN PRN Reason: Consult order Home Medications Medication Instructions Recorded Confirmed Last Taken Type metoprolol tartrate 25 mg tablet 12.5 mg PO BID 02/09/20 08/25/22 08/25/22 09:00 History oxcarbazepine 300 mg tablet 300 mg PO BID 02/09/20 08/25/22 08/25/22 09:00 History cyclosporine 0.05 % eye drops in a 1 drp ophthalmic (eye) Q12H 02/10/21 08/25/22 08/25/22 09:00 History dropperette (Restasis) atorvastatin 40 mg tablet 40 mg PO DAILY 06/23/22 08/25/22 08/25/22 09:00 History fluticasone propionate 50 1 spray intranasal BID 08/25/22 08/25/22 08/25/22 09:00 History mcg/actuation nasal spray,suspension methenamine hippurate 1 gram tablet 1 g PO DAILY 08/25/22 08/25/22 08/25/22 09:00 History nitrofurantoin 1 cap PO BID 08/25/22 08/25/22 08/25/22 09:00 History monohydrate/macrocrystals 100 mg capsule omeprazole 20 mg capsule,delayed 20 mg PO DAILY@0630 08/25/22 08/25/22 08/25/22 06:30 History release propylene glycol 1 %-glycerin 0.3 1 drp ophthalmic (eye) TID 08/25/22 08/25/22 08/25/22 09:00 History % eye drops (Artificial Tears (glycerin-peg)) Physical Exam 2 Vital Signs and Narrative: Vital Signs: Last Vital Signs Temp 98.8 F 08/25/22 15:31 Pulse 88 08/25/22 15:31 Resp 20 08/25/22 15:31 BP 116/79 08/25/22 15:31 Pulse Ox 97 08/25/22 15:31 O2 Del Method Room Air 08/25/22 15:31 BMI result Body Mass Index 22.7 Middle-aged female lying in bed in no distress Neck supple, no JVD Regular rate and rhythm, S1-S2 heard Regular breath sounds bilaterally, no wheezing or crackles appreciated Abdomen soft nontender, no guarding, no rigidity, Right CVA tenderness + Patient is awake, alert and oriented to self, place, time and person ; no focal motor deficit Psych: Normal mood No pedal edema Results Labs 08/25/22 16:12 08/25/22 16:12 Labs: Laboratory Results - last 24 hr 08/25/22 08/25/22 08/25/22 16:12 16:12 18:18 MCV 96.1 MCH 31.2 MCHC 32.4 RDW 13.0 Plt Count 204 MPV 10.5 Immature Gran % (Auto) 0.2 Neut % (Auto) 41.1 L Lymph % (Auto) 43.9 H [place] % (Auto) 11.5 H Eos % (Auto) 2.1 Baso % (Auto) 1.2 Lymph # (Auto) 2.5 [place] # (Auto) 0.7 Eos # (Auto) 0.1 Baso # (Auto) 0.1 Abs Immat Gran (auto) 0.01 Absolute Neuts (auto) 2.4 Absolute Nucleated RBC 0.000 Nucleated RBC % (auto) 0.0 Anion Gap 11 L Estim Creat Clear Calc 61.0 Estimated GFR > 60 Random Glucose 76 Calcium 9.6 Urine Color Dark Yellow Urine Appearance Cloudy Urine pH 6.5 Ur Specific [place] 1.015 Urine Protein 30 (1+) H Urine Glucose (UA) Negative Urine Ketones Negative Urine Blood Small (1+) H Urine Nitrite Positive H Ur Leukocyte Esterase Large (3+) H Urine RBC 3-5 H Urine WBC >50 H Ur Squamous Epith Cells 0-2 Urine Bacteria Trace Hyaline Casts 0-2 Assessment and Plan (1) UTI (urinary tract infection): Status: Acute Plan This is a 66-year-old female with pertinent history of mood disorder, QT prolongation on metoprolol, history of recurrent UTI due to self catheterization, insomnia, tobacco use disorder who presents to the emergency department for evaluation of dysuria. #. Emphysematous pyelitis. Will admit patient for IV antibiotics as she failed p.o. antibiotics. History of recurrent UTI due to self catheterization. Follow urine culture. #. Tobacco use disorder. Counseled regarding cessation. Refused nicotine patch #. Mood disorder. Continue home mood stabilizers #. Mixed hyperlipidemia: On statin Med rec pending DVT prophylaxis: Lovenox Full Code Regular diet Admit as inpatient and will require two night minimum hospital stay for IV antibiotics Time Spent With Patient Time: Total time managing care of this patient today ____ minutes. Quality Stroke Does the patient have a stroke diagnosis?: No VTE Prior VTE?: No VTE Risk Level:: Medical - moderate - high VTE Device Contraindication: Treatment Not Indicated VTE Drug Contraindication: N/A - Med Ordered
[2022-08-25 20:24] VITALS: BP 99/67; PULSE 70; RESP 18; TEMP 36.7; O2SAT 98
[2022-08-25 20:26] LABS: Lactic Acid 2.2 mmol/L (0.5-2.0)
[2022-08-25] MEDS: cefTRIAXone sodium 1 GM in 0.9 % Sodium Chloride 50 ML IV (20:44)
[2022-08-25] MEDS: Enoxaparin Sodium 40 MG/0.4 ML SYRINGE SUBCUT (20:45)
[2022-08-25] MEDS: 0.9 % Sodium Chloride 1,000 ML 999 ML IV ×2 (20:45→21:37)
--- NOTE | 2022-08-25 21:04 | PC.NURSE ---
IV obtained in patient's left hand, fluids and IV antibiotics infusing at this time.
--- NOTE | 2022-08-25 21:44 | PHA.MEDREC ---
Pharmacy Consult ? Medication Reconciliation Pharmacy has completed the medication reconciliation. Spoke to patient to confirm meds. Patient states they take methanamine, but are currently holding it while on ABX.
[2022-08-25 22:10] LABS: Reflex Lactate? Lactic Acid Added
[2022-08-25 22:45] VITALS: BP 128/70; PULSE 85; RESP 18; TEMP 36.5; O2SAT 95
[2022-08-25 22:56] LABS: ~Lactic Acid-LAB USE ONLY 1.1 mmol/L (0.5-2.0)
[2022-08-25] MEDS: OXcarbazepine 300 MG TABLET PO (23:03)
[2022-08-25] MEDS: Zolpidem Tartrate 5 MG TABLET PO (23:03)
[2022-08-26] MEDS: Piperacillin Sodium/Tazobactam 4.5 GM in 0.9 % Sodium Chloride 100 ML IV ×5 (00:56→23:51)
[2022-08-26 02:17] VITALS: BP 136/82; PULSE 97; RESP 14; TEMP 36.8; O2SAT 97
--- NOTE | 2022-08-26 02:18 | PC.NURSE ---
Pt aox4. Reports sob after ambulating to the bathroom. Breaths are even regular and labored. No distress noted. Denies chest pain at this time. RR 14 o2 sat 97% RA. VSSDaniel Ochoa text sent to Dr. Mckeon.
[2022-08-26] MEDS: Albuterol/Iprat 2.5/0.5MG 3 ML AMPUL.NEB INHALE (02:40)
[2022-08-26 02:41] VITALS: PULSE 97; RESP 18; O2SAT 97
[2022-08-26 06:11] LABS: MANUAL DIFF FLAG NO
[2022-08-26 06:18] LABS: Basophils Absolute Auto 0.1 X10*3/uL (0.0-0.2); Basophils Percent Auto 0.9 % (0-2); Eosinophils Absolute Auto 0.2 X10*3/uL (0.0-0.4); Eosinophils Percent Auto 2.7 % (0-4); Hematocrit 33.5 % (37.0-47.0); Hemoglobin 10.6 g/dl (12.0-16.0); Imm Gran Abs Auto 0.01 X10*3/uL (0.00-0.03); Imm Gran Pct Auto 0.2 % (0.0-0.4); Lymphocytes Percent Auto 36.5 % (20-40); Mean Corpuscular HGB Conc 31.6 g/dl (31.0-35.0); Mean Platelet Volume 10.6 fL (9.4-12.3); Monocytes Absolute Auto 0.6 X10*3/uL (0.1-1.2); Monocytes Percent Auto 11.5 % (2-11); Neutrophils Absolute Auto 2.6 x10*3/uL (2.0-8.3); Neutrophils Percent Auto 48.2 % (45-73); Platelet Count 170 X10*3/uL (160-400); Red Blood Count 3.42 X10*6/uL (4.20-5.50); Red Cell Distribution Width 13.1 % (11.0-16.0); White Blood Count 5.5 X10*3/uL (4.8-10.8)
[2022-08-26 06:36] LABS: Anion Gap 10 (12-20); Blood Urea Nitrogen 18 mg/dL (9-16); Calcium 8.5 mg/dL (8.4-10.2); Carbon Dioxide 22 mmol/L (22-29); Chloride 116 mmol/L (96-108); Creatinine Clr Calc Pharmacy 65.3; Estimated Glomerular Filt Rate > 60; Glucose Random 110 mg/dL (60-115); Potassium 3.8 mmol/L (3.3-5.1); Sodium 144 mmol/L (135-145)
[2022-08-26] MEDS: Metoprolol Tartrate 12.5 MG HALFTAB PO ×2 (09:02→21:11)
[2022-08-26] MEDS: Loratadine 10 MG TABLET PO (09:03)
[2022-08-26] MEDS: Atorvastatin Calcium 40 MG TABLET PO (09:03)
[2022-08-26] MEDS: Ascorbic Acid 500 MG TABLET PO (09:03)
[2022-08-26] MEDS: OXcarbazepine 300 MG TABLET PO ×2 (09:03→21:11)
[2022-08-26] MEDS: Cholecalciferol (Vitamin D3) 25 MCG TABLET PO (09:03)
[2022-08-26 09:09] VITALS: BP 140/82; PULSE 67; RESP 17; TEMP 19.4; O2SAT 96
--- NOTE | 2022-08-26 10:52 | HO.PM.IMPN ---
Subjective Subjective Date of Service: 08/26/22 Interval History: dysuria Physical Exam Vital Signs: Vital Signs: Last Vital Signs Temp 67 F L 08/26/22 09:09 Pulse 67 08/26/22 09:09 Resp 17 08/26/22 09:09 BP 140/82 H 08/26/22 09:09 Pulse Ox 96 08/26/22 09:09 O2 Del Method Room Air 08/26/22 09:09 BMI result Body Mass Index 22.7 General: AO X 3, no acute distress Resp: CTA bilateral, no accessory muscles used CVS: S1,S2,RRR GI: soft, non tender, non distended Neuro: motor grossly intact, alert Psych: appropriate affect, appropriate insight Objective Data Active Medications Acetaminophen (Acetaminophen 325 Mg Tablet) 650 mg PO Q6H PRN PRN Reason: Pain, Mild (Pain Scale 1-3) Acetaminophen (Acetaminophen Supp 650 Mg Supp.Rect) 650 mg ND Q6H PRN PRN Reason: Pain, Mild (Pain Scale 1-3) Albuterol Sulfate (Albuterol Sulfate 90 Mcg 8 Gm Inhaler) 2 puff INHALE Q4H PRN PRN Reason: shortness of breath or wheezing Ascorbic Acid (Ascorbic Acid 500 Mg Tablet) 500 mg PO DAILY [facility] Last Admin: 08/26/22 09:03 Dose: 500 mg Documented By: NIKO Atorvastatin Calcium (Atorvastatin Calcium 40 Mg Tablet) 40 mg PO DAILY [facility] Last Admin: 08/26/22 09:03 Dose: 40 mg Documented By: NIKO Clonazepam (Clonazepam 0.5 Mg Tablet) 0.5 mg PO BID PRN PRN Reason: anxiety Enoxaparin Sodium (Enoxaparin Sodium 40 Mg/0.4 Ml Syringe) 40 mg SUBCUT Q24H [facility] Last Admin: 08/25/22 20:45 Dose: 40 mg Documented By: CHAZ Fluticasone Propionate (Fluticasone Propionate 100 Mcg Blst.W.Dev) 1 puff INHALE ID [facility] Piperacillin Sod/Tazobactam (Sod 4.5 gm/ Sodium Chloride) 100 mls @ 200 mls/hr IV Q6H [facility] Last Infusion: 08/26/22 08:41 Dose: 0 mls/hr Documented By: NIKO Loratadine (Loratadine 10 Mg Tablet) 10 mg PO DAILY [facility] Last Admin: 08/26/22 09:03 Dose: 10 mg Documented By: NIKO Melatonin (Melatonin 3 Mg Tablet) 6 mg PO BEDTIME PRN PRN Reason: Insomnia Metoprolol Tartrate (Metoprolol Tartrate 12.5 Mg Halftab) 12.5 mg PO BID [facility]; Protocol Last Admin: 08/26/22 09:02 Dose: 12.5 mg Documented By: NIKO Non-Formulary Medication (Cyclosporine [Restasis]) 1 drop EYE-BOTH Q12H [facility] Omeprazole (Omeprazole 20 Mg Capsule.Dr) 20 mg PO DAILY@629 [facility] Ondansetron HCl (Ondansetron Hcl 4 Mg/2 Ml Vial) 4 mg IVPUSH Q8H PRN PRN Reason: Nausea and Vomiting Oxcarbazepine (Oxcarbazepine 300 Mg Tablet) 300 mg PO BID [facility] Last Admin: 08/26/22 09:03 Dose: 300 mg Documented By: NIKO Pharmacy Consult (Consult Rx Perform Med Rec) 1 each MISCELLANE ONCE PRN PRN Reason: Consult order Sodium Chloride (0.9 % Sodium Chloride Flush 3 Ml Syringe) 3 ml IVFLUSH QSHIFT [facility] Last Admin: 08/26/22 07:11 Dose: Not Given Documented By: PARMJIT Non-Admin Reason: Patient Asleep Vitamin D (Cholecalciferol (Vitamin D3) 25 Mcg Tablet) 25 mcg PO DAILY [facility] Last Admin: 08/26/22 09:03 Dose: 25 mcg Documented By: NIKO Zolpidem Tartrate (Zolpidem Tartrate 5 Mg Tablet) 5 mg PO BEDTIME [facility] Labs 08/26/22 05:36 08/26/22 05:36 Labs: Laboratory Results - last 24 hr 08/25/22 08/25/22 08/25/22 16:12 16:12 18:18 MCV 96.1 MCH 31.2 MCHC 32.4 RDW 13.0 Plt Count 204 MPV 10.5 Immature Gran % (Auto) 0.2 Neut % (Auto) 41.1 L Lymph % (Auto) 43.9 H [place] % (Auto) 11.5 H Eos % (Auto) 2.1 Baso % (Auto) 1.2 Lymph # (Auto) 2.5 [place] # (Auto) 0.7 Eos # (Auto) 0.1 Baso # (Auto) 0.1 Abs Immat Gran (auto) 0.01 Absolute Neuts (auto) 2.4 Absolute Nucleated RBC 0.000 Nucleated RBC % (auto) 0.0 Anion Gap 11 L Estim Creat Clear Calc 61.0 Estimated GFR > 60 Random Glucose 76 Lactic Acid Lactic Acid F/U @ 2Hr Calcium 9.6 Urine Color Dark Yellow Urine Appearance Cloudy Urine pH 6.5 Ur Specific [place] 1.015 Urine Protein 30 (1+) H Urine Glucose (UA) Negative Urine Ketones Negative Urine Blood Small (1+) H Urine Nitrite Positive H Ur Leukocyte Esterase Large (3+) H Urine RBC 3-5 H Urine WBC >50 H Ur Squamous Epith Cells 0-2 Urine Bacteria Trace Hyaline Casts 0-2 08/25/22 08/25/22 08/26/22 20:05 22:36 05:36 MCV 98.0 MCH 31.0 MCHC 31.6 RDW 13.1 Plt Count 170 MPV 10.6 Immature Gran % (Auto) 0.2 Neut % (Auto) 48.2 Lymph % (Auto) 36.5 [place] % (Auto) 11.5 H Eos % (Auto) 2.7 Baso % (Auto) 0.9 Lymph # (Auto) 2.0 [place] # (Auto) 0.6 Eos # (Auto) 0.2 Baso # (Auto) 0.1 Abs Immat Gran (auto) 0.01 Absolute Neuts (auto) 2.6 Absolute Nucleated RBC 0.000 Nucleated RBC % (auto) 0.0 Anion Gap Estim Creat Clear Calc Estimated GFR Random Glucose Lactic Acid 2.2 H* Lactic Acid F/U @ 2Hr 1.1 Calcium Urine Color Urine Appearance Urine pH Ur Specific [place] Urine Protein Urine Glucose (UA) Urine Ketones Urine Blood Urine Nitrite Ur Leukocyte Esterase Urine RBC Urine WBC Ur Squamous Epith Cells Urine Bacteria Hyaline Casts 08/26/22 05:36 MCV MCH MCHC RDW Plt Count MPV Immature Gran % (Auto) Neut % (Auto) Lymph % (Auto) [place] % (Auto) Eos % (Auto) Baso % (Auto) Lymph # (Auto) [place] # (Auto) Eos # (Auto) Baso # (Auto) Abs Immat Gran (auto) Absolute Neuts (auto) Absolute Nucleated RBC Nucleated RBC % (auto) Anion Gap 10 L Estim Creat Clear Calc 65.3 Estimated GFR > 60 Random Glucose 110 Lactic Acid Lactic Acid F/U @ 2Hr Calcium 8.5 D Urine Color Urine Appearance Urine pH Ur Specific [place] Urine Protein Urine Glucose (UA) Urine Ketones Urine Blood Urine Nitrite Ur Leukocyte Esterase Urine RBC Urine WBC Ur Squamous Epith Cells Urine Bacteria Hyaline Casts Assessment and Plan (1) HLD (hyperlipidemia): Status: Acute Plan 66F PMH Bipolar, hld, chronic self cath since 2000 ?due to urinary overflow incontinence complicated by recurrent utis, insomnia, COPD, presented with dysuria emphysematous pyelitis acute zosyn, follow up cultures bipolar trileptal hld statin dvt prophylaxis - lovenox full code reason for continued hospitalization:awaiting cultures in complicated uti Time Spent With Patient Time: Total time managing care of this patient today ____ minutes. Quality Stroke Does the patient have a stroke diagnosis?: No VTE Prior VTE?: No VTE Risk Level:: Medical - moderate - high VTE Device Contraindication: Treatment Not Indicated VTE Drug Contraindication: N/A - Med Ordered
--- NOTE | 2022-08-26 13:05 | MHC.CM.PN ---
met with pt wholives alone she just moved into [facility] [address] [facility] [address] [facility] managed thru [facility] ,pt will need transport when dcd
[2022-08-26 15:39] VITALS: BP 147/73; PULSE 74; RESP 20; TEMP 36.4; O2SAT 96
[2022-08-26 19:38] VITALS: BP 147/71; PULSE 75; RESP 20; TEMP 36.3
[2022-08-26] MEDS: Fluticasone Propionate 100 MCG BLST.W.DEV 1 PUFF INHALE (19:54)
[2022-08-26 19:55] VITALS: PULSE 78; O2SAT 96
[2022-08-26] MEDS: Enoxaparin Sodium 40 MG/0.4 ML SYRINGE SUBCUT (21:11)
[2022-08-26] MEDS: Zolpidem Tartrate 5 MG TABLET PO (21:11)
[2022-08-26] MEDS: 0.9 % Sodium Chloride Flush 3 ML SYRINGE IVFLUSH (21:13)
[2022-08-27 03:24] VITALS: BP 124/75; PULSE 71; RESP 16; TEMP 36.2; O2SAT 94
[2022-08-27] MEDS: Albuterol/Iprat 2.5/0.5MG 3 ML AMPUL.NEB INHALE (03:37)
[2022-08-27 03:40] VITALS: PULSE 67; RESP 20; O2SAT 96
[2022-08-27] MEDS: Omeprazole 20 MG CAPSULE.DR PO (05:58)
[2022-08-27] MEDS: Piperacillin Sodium/Tazobactam 4.5 GM in 0.9 % Sodium Chloride 100 ML IV (05:59)
[2022-08-27 06:29] LABS: Hematocrit 33.8 % (37.0-47.0); Hemoglobin 10.7 g/dl (12.0-16.0); Mean Corpuscular HGB Conc 31.7 g/dl (31.0-35.0); Mean Platelet Volume 11.2 fL (9.4-12.3); Platelet Count 181 X10*3/uL (160-400); Red Blood Count 3.45 X10*6/uL (4.20-5.50); White Blood Count 5.7 X10*3/uL (4.8-10.8)
[2022-08-27 06:41] LABS: Anion Gap 10 (12-20); Blood Urea Nitrogen 17 mg/dL (9-16); Carbon Dioxide 24 mmol/L (22-29); Chloride 111 mmol/L (96-108); Creatinine Clr Calc Pharmacy 62.6; Estimated Glomerular Filt Rate > 60; Glucose Fasting 90 mg/dL (60-99); Potassium 4.4 mmol/L (3.3-5.1); Sodium 141 mmol/L (135-145)
[2022-08-27 07:50] VITALS: BP 132/78; PULSE 61; RESP 16; TEMP 36.8; O2SAT 96
[2022-08-27] MEDS: Metoprolol Tartrate 12.5 MG HALFTAB PO (07:50)
[2022-08-27 07:51] VITALS: PULSE 73; RESP 18; O2SAT 96
[2022-08-27] MEDS: Cholecalciferol (Vitamin D3) 25 MCG TABLET PO (07:51)
[2022-08-27] MEDS: OXcarbazepine 300 MG TABLET PO (07:51)
[2022-08-27] MEDS: 0.9 % Sodium Chloride Flush 3 ML SYRINGE IVFLUSH (07:51)
[2022-08-27] MEDS: Loratadine 10 MG TABLET PO (07:51)
[2022-08-27] MEDS: Ascorbic Acid 500 MG TABLET PO (07:51)
[2022-08-27] MEDS: Atorvastatin Calcium 40 MG TABLET PO (07:51)
[2022-08-27] MEDS: Fluticasone Propionate 100 MCG BLST.W.DEV 1 PUFF INHALE (07:51)
--- NOTE | 2022-08-27 10:43 | PM.DS ---
DS: Providers Provider Date of Service: 08/27/22 Date of admission: 08/25/22 20:13 Primary care physician: Petros Verduzco PA-C DS: Diagnosis Discharge Diagnosis (1) HLD (hyperlipidemia): Status: Acute DS: Summary Hospital Course Hospital Course: from initial hpi: 66-year-old female with pertinent history of mood disorder, QT prolongation on metoprolol, history of recurrent UTI due to self catheterization, insomnia, tobacco use disorder who presents to the emergency department for evaluation of dysuria.? Patient states she has been having dysuria and increased frequency that has been ongoing for the last 2-3 days.? Patient went to urgent care on Wednesday and was prescribed Macrobid.? Patient states her symptoms did not improve with p.o. Macrobid.? On the day of presentation, patient also with fevers and chills.? States she was admitted with sepsis due to UTI a year ago and has frequent UTIs as she self catheterizes due to loss of bladder control.? Patient admits nausea but denies vomiting, chest discomfort, palpitations, shortness of breath, changes in urinary or bowel habits.? She also complains of bilateral flank discomfort that started on the day of presentation. In the emergency department, UA was concerning for UTI hospital course: patient was admitted for acute emphysematous pyelitis. she was treated with zosyn. symptoms resolved. culture grew proteus, she will be discharged on 7 more days ceftin. for bipolar was contineud on trileptal, for hld on statin. will be discharged home. Time Spent with Patient Time attestation: Total time managing care of this patient today ____ minutes. Discharge coordination time: Greater than 30 minutes Quality: Safe Use of Opioids Does Pt have an Active Cancer Diagnosis on the Problem List?: No Quality: Stroke Does the patient have a stroke diagnosis?: No Physical Exam Vital Signs: Vital Signs: Last Vital Signs Temp 98.2 F 08/27/22 07:50 Pulse 73 08/27/22 07:51 Resp 18 08/27/22 07:51 BP 132/78 08/27/22 07:50 Pulse Ox 96 08/27/22 07:50 O2 Del Method Room Air 08/27/22 07:50 BMI result Body Mass Index 22.7 General: AO X 3, no acute distress Resp: CTA bilateral, no accessory muscles used CVS: S1,S2,RRR GI: soft, non tender, non distended Neuro: motor grossly intact, alert Psych: appropriate affect, appropriate insight DS: Data Data Completed and Pending Labs on day of discharge: Laboratory Results - last 24 hr 08/27/22 08/27/22 05:27 05:27 WBC 5.7 RBC 3.45 L Hgb 10.7 L Hct 33.8 L MCV 98.0 MCH 31.0 MCHC 31.7 RDW 13.0 Plt Count 181 MPV 11.2 Absolute Nucleated RBC 0.000 Nucleated RBC % (auto) 0.0 Sodium 141 Potassium 4.4 Chloride 111 H Carbon Dioxide 24 Anion Gap 10 L BUN 17 H Creatinine 0.74 Estim Creat Clear Calc 62.6 Estimated GFR > 60 Fasting Glucose 90 Calcium 9.0 Preliminary micro results at discharge 08/25/22 20:06 Blood Culture - Preliminary Blood - Venous No growth after 24 hours. 08/25/22 20:05 Blood Culture - Preliminary Blood - Venous No growth after 24 hours. Discharge Plan Discharge Anticipated Discharge Date/Time: 08/27/22 10:41 Patient Disposition: Home, Self-Care Discharge Diagnosis: uti Referrals: Petros Verduzco PA-C [Primary Care Provider] - 1 Week Discharge Medications: New cefuroxime axetil 500 mg tablet 500 mg PO BID Qty: 14 0RF Continued ascorbic acid (vitamin C) 500 mg tablet 500 mg PO DAILY 90 Days Qty: 90 3RF cetirizine 10 mg tablet 10 mg PO DAILY 90 Days Qty: 90 1RF zolpidem 10 mg tablet 10 mg PO BEDTIME 7 Days Qty: 7 1RF fluticasone propionate 50 mcg/actuation spray,suspension 1 spray intranasal BID Artificial Tears(glycerin-peg) 1-0.3 % Drops 1 drp OPHTHALMIC (EYE) TID methenamine hippurate 1 gram tablet 1 g PO DAILY Rx Instructions: PT HELD WHILE ON ABX omeprazole 20 mg capsule,delayed release(DR/EC) 20 mg PO DAILY@0630 atorvastatin 40 mg tablet 40 mg PO DAILY albuterol sulfate 90 mcg/actuation HFA aerosol inhaler 2 puff inhalation Q4H PRN (Reason: shortness of breath or wheezing) 30 Days Qty: 8.5 3RF clonazepam 0.5 mg tablet 0.5 mg PO BID PRN (Reason: anxiety) 30 Days Qty: 60 0RF cholecalciferol (vitamin D3) [Vitamin D3] 25 mcg (1,000 unit) capsule 25 mcg PO DAILY Qty: 30 3RF fluticasone propionate 110 mcg/actuation HFA aerosol inhaler 110 mcg inhalation BID 30 Days Qty: 12 3RF Restasis 0.05 % dropperette 1 drp ophthalmic (eye) Q12H metoprolol tartrate 25 mg tablet 12.5 mg PO BID oxcarbazepine 300 mg tablet 300 mg PO BID Discontinued nitrofurantoin monohyd/m-cryst 100 mg capsule 1 cap PO BID Rx Instructions: START - 08/24/22; END - 08/31/22 Discharge Orders: Discharge Order (Routine); Ordered 08/27/22 Ordered By: Toby Perkins Diet: Advance to usual diet Activity on Discharge: As tolerated Stand Alone Forms: Patient Portal Discharge page Care Plan Goals: recovery Health Concerns: uti Plan of Treatment: cefuroxime for 7 more days Assessment: see above
--- NOTE | 2022-08-27 11:15 | MHC.CM.PN ---
PT WILL DC HOME TODAY WITH NO SERVICES [facility] SHUTTLE TRANSPORT ARRANGED FOR 1230 VOUCHER PROVIDED
== END 2022-08-27 11:44 | disposition home or self-care (01) | DRG 690 ==
LOC: HO.ED 21:25 → HO.EDOVER 23:08 → HO.S3 08-26 07:11
PROVIDERS: Physician Assistant; Admitting Provider Student in an Organized Health Care Education/Training Program; Emergency Provider Student in an Organized Health Care Education/Training Program; PCP Physician Assistant; Visit Provider Internal Medicine
DX: N10 Acute pyelonephritis (principal); F31.9 Bipolar disorder, unspecified; F43.10 Post-traumatic stress disorder, unspecified; J44.9 Chronic obstructive pulmonary disease, unspecified; E78.2 Mixed hyperlipidemia; F17.210 Nicotine dependence, cigarettes, uncomplicated; Z87.440 Personal history of urinary (tract) infections; Z86.15 Personal history of latent tuberculosis infection; Z71.6 Tobacco abuse counseling; Z79.51 Long term (current) use of inhaled steroids; Z79.899 Other long term (current) drug therapy
CPT/HCPCS: 36415; 74176; 80048; 81001; 83605; 85025; 85027; 87040; 87086; 87088; 87186; 94640; 99285; J0696; J1650; J2543

== ENCOUNTER → 2022-09-16 11:38 | Outpatient (BNVA) | payer MEDICARE, SELFPAY | PROVIDERS: Visit Provider Physician Assistant | DX: Z01.818 Encounter for other preprocedural examination (principal) | CPT/HCPCS: 99202 ==

== ENCOUNTER 2022-09-29 09:49 | Outpatient (AMB) | payer MEDICARE, SELFPAY ==
--- NOTE | 2022-09-29 09:52 | MHC.PC.OV ---
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 Accompanied by: Self / Same As Patient Allergies lamotrigine [From Lamictal] Allergy (Mild, Verified 09/29/22 10:26) RASH doxycycline [DOXYCYCLINE] Allergy (Unknown, Verified 09/29/22 10:26) stomach upset nefazodone [From Serzone] Allergy (Unknown, Verified 09/29/22 10:26) unknown penicillin V Adverse Reaction (Unknown, Verified 09/29/22 10:26) vomitting, nausea bupropion [From Wellbutrin] Adverse Reaction (Verified 09/29/22 10:26) dizziness, shakiness Environmental Allergy (Unknown, Uncoded 06/23/22 16:04) SEASONAL NASAL DRIP, ITCHY EYES TEA Adverse Reaction (Mild, Uncoded 06/23/22 16:04) NAUSEA & VOMITING TUNA FISH Adverse Reaction (Mild, Uncoded 06/23/22 16:04) NAUSEA & VOMITIING Medication List - Last Reconciled 09/29/22 by Petros Verduzco PA-C albuterol sulfate 90 mcg/actuation 2 puffs inhalation Q4H PRN 30 days ascorbic acid (vitamin C) 500 mg PO DAILY 90 days atorvastatin 40 mg PO DAILY cetirizine 10 mg PO DAILY 90 days cholecalciferol (vitamin D3) (Vitamin D3) 25 mcg PO DAILY clonazepam 0.5 mg PO BID PRN 30 days cyclosporine 0.05% (Restasis) 1 drp ophthalmic (eye) Q12H fluticasone propionate 50 mcg/actuation 1 spray intranasal BID fluticasone propionate 110 mcg/actuation 110 mcg inhalation BID 30 days methenamine hippurate 1 g PO DAILY metoprolol tartrate 12.5 mg PO BID omeprazole 20 mg PO DAILY@0630 oxcarbazepine 300 mg PO BID propylene glycol-glycerin 1-0.3 % (Artificial Tears (glycerin-peg)) 1 drp ophthalmic (eye) TID zolpidem 10 mg PO BEDTIME 7 days Tobacco use date assessed: 09/29/22 Fall risk assessment: 2 + Falls in past year Last assessed Fall Risk: 09/29/22 Dental Screening Dental Screen Date: 09/29/22 Did you have a dental visit in the last 12 months?: No Was dental information given to patient?: No HPI Allergies HPI Details Patient is a 66-year-old female here today for a follow-up visit. Patient's past medical history significant for bladder cancer with history recurrent UTIs and self caths, insomnia, tobacco use disorder, mood disorder and QT prolongation on metoprolol. Was recently hospitalized at [place] for acute pyelonephritis. Was treated with IV antibiotics and transition to p.o. antibiotics. Now doing much better. Concerns today are her sinus pain and right ear pain. She reports she has been suffering with allergies and has not been able to receive her allergy medication from the pharmacy. She reports due to the human weather her allergies have been worse. Recently has gotten into a new temporary apartment that has AC which is palpating. [facility] Medical History Bipolar 1 disorder Bladder cancer Bronchitis COPD (chronic obstructive pulmonary disease) Depression GERD (gastroesophageal reflux disease) Insomnia Narrow angle glaucoma suspect PTSD (post-traumatic stress disorder) Sarcoid Surgical History History of bladder surgery History of dental surgery History of eye surgery Hx of cataract surgery Hx of hysterectomy Family History Father Lung cancer Mother Seizure HTN (hypertension) Diabetes mellitus Pacemaker Son In good health Maternal Grandmother Ovarian cancer Other Mental problem Social History Household Members: None Housing: Apartment Do you presently have visiting nurse or other home services: No Alcohol intake: never Patient Tobacco Use Status: Current everyday Tobacco user Tobacco use type: Cigarette Cigarette Packs Per Day: 0.5 Cigarettes Per Day: 7 e-Cigarette/Vaping Use: Never Used Second Hand Smoke Exposure: No service: No Current occupational status: disabled Sexual orientation: Straight/Heterosexual Gender identity: Female Cognitive needs: No Hearing needs: No Vision needs: Yes (glasses) Female Reproductive History Menstrual Age of Menarche: 13 Questionnaire Thrive Questionnaire Date Thrive assessed: 06/23/22 CAROLYN-7 AMB Questionnaire CAROLYN-7 Date CAROLYN - 7 assessed: 06/23/22 Source: Developed by Drs. Earnest Arvizu, Kyleigh Iglesias, Amandeep Ronquillo and colleagues, with an educational maurice from [employer]. Review of Systems Const Denies headache(s) Eyes Denies loss of vision ENT Denies vertigo, Denies dizziness, Denies headache(s) and Denies sore throat Card Denies chest pain, Denies leg edema and Denies lightheadedness Resp Denies cough, Denies hemoptysis and Denies wheezing GI Denies abdominal pain, Denies melena, Denies constipation, Denies diarrhea and Denies vomiting Denies urinary frequency, Denies dysuria and Denies urinary urgency Musc Denies arthralgias, Denies joint swelling, Denies numbness and Denies tingling Neuro Denies Abnormal speech present, Denies behavioral changes, Denies vertigo, Denies dizziness, Denies headache(s), Denies loss of vision, Denies memory loss, Denies numbness and Denies tingling Psych Denies anxiety, Denies behavioral changes, Denies depression, Denies memory loss and Denies panic attacks Kirk/Lymph Denies easy bleeding and Denies easy bruising Aller/Immun Denies wheezing Physical exam (Primary Care) Vital Signs: Last Vital Signs Pulse 75 09/29/22 09:53 BP 118/64 09/29/22 09:53 Pulse Ox 97 09/29/22 09:53 BMI result Body Mass Index 22.0 Tobacco/Smoking Status: Tobacco use Status Tobacco use date assessed 09/29/22 09/29/22 09:58 Patient Tobacco Use Status Current everyday Tobacco 09/29/22 09:58 Tobacco use type Cigarette 09/29/22 09:58 e-Cigarette/Vaping Use Never Used 09/29/22 09:58 Are you ready to quit: Yes Tobacco cessation counseling provided: Yes Relapse Prevention: discussed the importance of a supportive environment, discussed negative mood or depression after quitting, weight gain after smoking is common and discussed dietary, exercise and/or lifestyle changes Number of minutes spent counselin CPT code: 00289 - 4-10 Minutes Thrive Assessment: Date of Thrive Assessment Date Thrive assessed 06/23/22 09/29/22 09:58 Const General: healthy appearing, no acute distress, alert and awake Nutritional Appearance: well nourished Orientation/consciousness: oriented to person, oriented to place and oriented to time HENMT Other: RIGHT TYMPANIC MEMBRANE ERYTHEMATOUS General nose exam: Normal nasal mucous membranes and turbinates present Eyes Conjunctivae: conjunctivae normal Sclerae: sclerae normal Pupils: Equal, round and reactive pupils present Neck Neck: Yes no lymphadenopathy and Yes no JVD Thyroid: Thyroid normal Carotids: no bruits Resp Effort & Inspection: normal respiratory effort and not tachypneic Auscultation: no crackles, no rales, no rhonchi and no wheezes Cardio Rate: regular rate Rhythm: regular rhythm Heart sounds: no murmurs and normal S1 and S2 GI Palpation (GI): Soft to palpation, nontender, no hepatomegaly and no splenomegaly Auscultation: normal bowel sounds Skin General skin exam: no rashes or lesions noted and dry skin Neuro General: oriented to person, oriented to place and oriented to time Cranial nerves: Yes Equal, round and reactive pupils present Speech: No Abnormal speech present Gait exam (Neuro): Normal gait present Motor exam (neuro): no tremor noted Extrem Right upper extremity: full ROM Left upper extremity: full ROM Right lower extremity: full ROM; no edema Left lower extremity: full ROM; no edema Psych Mental Status: mental status grossly normal Speech and movement: Normal speech and movement present Affect: normal affect Attitude: cooperative Thought process: Normal thought process present Assessment and Plan Assessment & Plan (1) Sinusitis: Code(s): J32.9 - Chronic sinusitis, unspecified Qualifiers: Chronicity: chronic Sinusitis location: frontal Qualified Code(s): J32.1 - Chronic frontal sinusitis Plan: Patient needs refill on her Flonase nasal spray and will restart Zyrtec. Supply patient with few days of cefurox due to evidence of sinusitis infection. (2) Tobacco dependence: Code(s): F17.200 - Nicotine dependence, unspecified, uncomplicated Plan: Unfortunately patient continues to smoke and does report she is willing to stop smoking with nicotine lozenges. Will be buying [id number] like knee nauseous and plans to quit smoking with these. Medications: New cefuroxime axetil 500 mg PO BID 4 days 8 tabs 0RF J32.1 - Chronic frontal sinusitis Changed From fluticasone propionate 50 mcg/actuation 1 spray intranasal BID J32.1 - Chronic frontal sinusitis To fluticasone propionate 50 mcg/actuation 1 spray intranasal BID 30 days 16 grams 3RF J32.1 - Chronic frontal sinusitis Discontinued methenamine hippurate 1 g PO BID 60 tabs 3RF omeprazole 20 mg PO DAILY 90 days 90 caps 1RF K21.9 - Gastro-esophageal reflux disease without esophagitis Coding Level of Care Code Est Pt Level 3 (69817) Diagnoses Sinusitis J32.1 Chronicity: chronic Sinusitis location: frontal Tobacco dependence F17.200 Additional Codes Vital Signs *Quality* - CPT code: 38202 - 4-10 Minutes ([id number])
[2022-09-29 09:53] VITALS: BP 118/64; PULSE 75; O2SAT 97; BMI 22.0
== END 2022-09-29 10:38 | disposition home or self-care (01) ==
PROVIDERS: PCP Physician Assistant; Visit Provider Physician Assistant
DX: J32.1 Chronic frontal sinusitis (principal); F17.210 Nicotine dependence, cigarettes, uncomplicated
CPT/HCPCS: 99213; 99406

== ENCOUNTER 2022-10-10 20:08 | Inpatient (IN) | payer MEDICARE, SELFPAY ==
[2022-10-10 20:15] VITALS: BP 140/95; PULSE 118; RESP 20; TEMP 38.1; O2SAT 95; BMI 22.1
--- NOTE | 2022-10-10 20:15 | ED.ABDPAIN ---
HPI - Abdominal Pain General Chief Complaint: Urogenital-Female Stated Complaint: fever, body aches Time Seen by Provider: 10/10/22 20:28 Source: patient Mode of arrival: ambulatory Limitations: no limitations History of Present Illness HPI narrative: Patient comes to the emergency room complaining of bilateral flank pain for couple of days. Patient reports a T-max of 100.2. Patient concerned about having UTI/pyelonephritis. Patient has been admitted for pyelonephritis in the past. Patient states that she has to straight cath her and is prone to having UTIs. Related Data Home Medications Medication Instructions Recorded Confirmed metoprolol tartrate 25 mg tablet 12.5 mg PO BID 02/09/20 10/10/22 oxcarbazepine 300 mg tablet 300 mg PO BID 02/09/20 10/10/22 cyclosporine 0.05 % eye drops in a 1 drp ophthalmic (eye) Q12H 02/10/21 10/10/22 dropperette (Restasis) atorvastatin 40 mg tablet 40 mg PO DAILY 06/23/22 10/10/22 methenamine hippurate 1 gram tablet 1 g PO DAILY 08/25/22 10/10/22 omeprazole 20 mg capsule,delayed 20 mg PO DAILY@0630 08/25/22 10/10/22 release propylene glycol 1 %-glycerin 0.3 1 drp ophthalmic (eye) TID 08/25/22 10/10/22 % eye drops (Artificial Tears (glycerin-peg)) Previous Rx's Medication Instructions Recorded ascorbic acid (vitamin C) 500 mg 500 mg PO DAILY 90 days #90 tabs 12/16/20 tablet albuterol sulfate 90 mcg/actuation 2 puff inhalation Q4H PRN 06/23/22 aerosol inhaler shortness of breath or wheezing 30 days #8.5 grams cholecalciferol (vitamin D3) 25 25 mcg PO DAILY #30 caps 06/23/22 mcg (1,000 unit) capsule (Vitamin D3) fluticasone propionate 110 110 mcg inhalation BID 30 days #12 06/23/22 mcg/actuation HFA aerosol inhaler grams zolpidem 10 mg tablet 10 mg PO BEDTIME 7 days #7 tabs 08/18/22 clonazepam 0.5 mg tablet 0.5 mg PO BID PRN anxiety 30 days 09/21/22 #60 tabs cetirizine 10 mg tablet 10 mg PO DAILY 90 days #90 tabs 09/25/22 cefuroxime axetil 500 mg tablet 500 mg PO BID 4 days #8 tabs 09/29/22 Allergies Allergy/AdvReac Type Severity Reaction Status Date / Time lamotrigine [From Lamictal] Allergy Mild RASH Verified 09/29/22 10:26 doxycycline [DOXYCYCLINE] Allergy Unknown stomach Verified 09/29/22 10:26 upset nefazodone [From Serzone] Allergy Unknown unknown Verified 09/29/22 10:26 penicillin V AdvReac Unknown vomitting, Verified 09/29/22 10:26 nausea bupropion [From Wellbutrin] AdvReac dizziness, Verified 09/29/22 10:26 shakiness Environmental Allergy Unknown SEASONAL Uncoded 06/23/22 16:04 NASAL DRIP, ITCHY EYES TEA AdvReac Mild NAUSEA & Uncoded 06/23/22 16:04 VOMITING TUNA FISH AdvReac Mild NAUSEA & Uncoded 06/23/22 16:04 VOMITIING Review of Systems Review of Systems Constitutional : No Weight loss, No Fever, No Chills, No Night Sweats, No Fatigue, No Malaise ENT/Mouth : No Hearing loss, No Ear Pain, No Nasal Congestion, No Sinus Pain, No Hoarseness, No sore throat, No Rhinorrhea, No Swallowing Difficulty Eyes: No Eye Pain, No Swelling, No Redness, No Foreign Body, No Discharge, No Vision Changes Cardiovascular : No Chest Pain, No SOB, No Dyspnea on Exertion, No Orthopnea, No Edema, No Palpitations Respiratory : No Cough, No Sputum, No Wheezing, No Smoke Exposure, No Dyspnea Gastrointestinal : No Nausea, No Vomiting, No Diarrhea, No Constipation, No abdominal Pain, No Hematochezia, No Melena Genitourinary : no irregular bleeding, complaining of Dysuria, No Urinary Frequency, No Hematuria, No Urinary Incontinence, No Urgency, complaining of bilateral Flank Pain, No Urinary Flow Changes, No Hesitancy Musculoskeletal : No joint pain, No Myalgias, No Joint Swelling Skin : No Skin Lesions, No rash Neuro : No Weakness, No Numbness, No Paresthesias, No Loss of Consciousness, No Dizziness, No Headache Psych : No Anxiety/Panic, No Depression, No SI/HI/AH/VH, No Social Issues, Heme/Lymph: No Bruising, No Bleeding,No Lymphadenopathy Endocrine : No Polyuria, No Polydipsia, No Temperature Intolerance [facility] Past Medical History Medical History Bipolar 1 disorder Bladder cancer Bronchitis COPD (chronic obstructive pulmonary disease) Depression GERD (gastroesophageal reflux disease) Insomnia Narrow angle glaucoma suspect PTSD (post-traumatic stress disorder) Sarcoid Surgical History History of bladder surgery History of dental surgery History of eye surgery Hx of cataract surgery Hx of hysterectomy Family History Family History Father Lung cancer Mother Seizure HTN (hypertension) Diabetes mellitus Pacemaker Son In good health Maternal Grandmother Ovarian cancer Other Mental problem Social History Social History Household Members: None Housing: Apartment Do you presently have visiting nurse or other home services: No Alcohol intake: never Patient Tobacco Use Status: Never used Tobacco Tobacco use type: Cigarette Cigarette Packs Per Day: 0.5 Cigarettes Per Day: 7 Smoked in Last 30 Days: Yes e-Cigarette/Vaping Use: Never Used Second Hand Smoke Exposure: No Use of substances other than those prescribed or required for medical reasons: No Advance Directives: No Advance Directives Information Provided: Yes service: No Current occupational status: disabled Sexual orientation: Straight/Heterosexual Gender identity: Female Cognitive needs: No Hearing needs: No Vision needs: Yes (glasses) Physical Exam ED Vital Signs: Vital Signs - 24 hr 10/10/22 20:15 Temperature 100.5 F H Pulse Rate 118 H Respiratory Rate 20 Blood Pressure 140/95 H Pulse Oximetry 95 Oxygen Delivery Method Room Air BMI result Body Mass Index 22.1 Const Other: Appearance: Alert. Oriented X3. No acute distress. Eyes: Pupils equal, round and reactive to light. ENT: Pharynx normal. Neck: Normal inspection. Neck supple. No lymph nodes noted. No crepitus CVS: Normal heart rate and rhythm. Pulses normal. Normal S1 and S2 Respiratory: No respiratory distress. Breath sounds normal. No Wheezing. No rales Abdomen: Soft and nontender. No rigidity. No distention. CVA tenderness bilaterally Skin: Skin warm and dry. Normal skin color. Normal skin turgor. Extremities: No lower extremity edema. No Lacerations. No Rash Neuro: Oriented X 3. No motor deficit. No sensory deficit. Moving all extremities. No slurred speech. CN 2 through 12 grossly intact Psych: calm, cooperative, normal affect Course Course Course Narrative: This is an RME: Additional HPI, ROS, PE not included below will be deferred to primary provider. Patient is a 66-year-old female presents emergency department with complaints of lower abdominal pain, concern for urinary tract infection, feels consistent with prior infections, she self catheterizes, Additionally has been experiencing chills throughout the day, fever prior to arrival for which she took ibuprofen, nausea without vomiting. Reports recent admission over the past 2 weeks for UTI. Plan; labs, urinalysis Medical Decision Making Medical Decision Making [facility] Narrative: -my interpretation of labs, patient's white blood cell count elevated, 11.0. Creatinine within normal limits, urine grossly positive for UTI. Patient given IV fluids and ceftriaxone. Patient's blood pressure normal, bit tachycardic, having fever 100.5. On arrival, patient was started on IV fluids prophylactically and ceftriaxone. -I discussed the labs and the patient with Dr. Mckeon , clinically patient has pyelonephritis. Differential Diagnosis Differential Diagnoses: The differential diagnosis associated with the presentation includes (UTI, pyelonephritis) Admission/Observation Consideration of admission/observation: Escalation of care including admission/observation considered Consult Healthcare Provider Management of the patient was discussed with: Hospitalist Lab Data [facility] Lab Attestation statement: I reviewed the patient's lab results. 10/10/22 21:37 10/10/22 21:37 Labs: Lab Results 10/10/22 10/10/22 10/10/22 Range/Units 20:46 21:37 21:37 WBC 11.0 H (4.8-10.8) X10*3/uL RBC 3.82 L (4.20-5.50) X10*6/uL Hgb 11.9 L (12.0-16.0) g/dl Hct 35.9 L (37.0-47.0) % MCV 94.0 (80.0-98.0) fL MCH 31.2 (27.0-33.0) pg MCHC 33.1 (31.0-35.0) g/dl RDW 12.9 (11.0-16.0) % Plt Count 188 (160-400) X10*3/uL MPV 10.3 (9.4-12.3) fL Immature Gran % (Auto) 0.1 (0.0-0.4) % Neut % (Auto) 73.9 H (45-73) % Lymph % (Auto) 16.0 L (20-40) % [place] % (Auto) 9.3 (2-11) % Eos % (Auto) 0.2 (0-4) % Baso % (Auto) 0.5 (0-2) % Lymph # (Auto) 1.8 (1.2-4.9) X10*3/uL [place] # (Auto) 1.0 (0.1-1.2) X10*3/uL Eos # (Auto) 0.0 (0.0-0.4) X10*3/uL Baso # (Auto) 0.1 (0.0-0.2) X10*3/uL Abs Immat Gran (auto) 0.01 (0.00-0.03) X10*3/uL Absolute Neuts (auto) 8.2 (2.0-8.3) x10*3/uL Absolute Nucleated RBC 0.000 (0.0-0.012) X10*3/uL Nucleated RBC % (auto) 0.0 (0.0-0.2) /100WBC Sodium 138 (135-145) mmol/L Potassium 3.6 (3.3-5.1) mmol/L Chloride 103 (96-108) mmol/L Carbon Dioxide 26 (22-29) mmol/L Anion Gap 13 (12-20) BUN 16 (9-16) mg/dL Creatinine 0.68 (0.5-1.4) mg/dL Estim Creat Clear Calc 68.2 Estimated GFR > 60 Random Glucose 95 (60-115) mg/dL Lactic Acid 0.9 (0.5-2.0) mmol/L Calcium 9.3 (8.4-10.2) mg/dL Total Bilirubin 0.6 (0.0-1.0) mg/dL AST 13 (5-31) U/L ALT 6 (0-31) U/L Alkaline Phosphatase 86 (39-117) U/L Total Protein 7.0 (6.5-8.0) g/dL Albumin 3.7 (3.5-5.0) g/dL Urine Color Urine Appearance Urine pH (5.0-9.0) Ur Specific [place] (1.005-1.025) Urine Protein (Neg-Trace) mg/dL Urine Glucose (UA) (Negative) mg/dL Urine Ketones (Negative) mg/dL Urine Blood (Negative) Urine Nitrite (Negative) Ur Leukocyte Esterase (Negative) Urine RBC (0-2) /HPF Urine WBC (0-5) /HPF Ur Squamous Epith Cells (0-2) /HPF Urine Bacteria (None Seen) Hyaline Casts (0-2) /LPF 10/10/22 Range/Units 22:00 WBC (4.8-10.8) X10*3/uL RBC (4.20-5.50) X10*6/uL Hgb (12.0-16.0) g/dl Hct (37.0-47.0) % MCV (80.0-98.0) fL MCH (27.0-33.0) pg MCHC (31.0-35.0) g/dl RDW (11.0-16.0) % Plt Count (160-400) X10*3/uL MPV (9.4-12.3) fL Immature Gran % (Auto) (0.0-0.4) % Neut % (Auto) (45-73) % Lymph % (Auto) (20-40) % [place] % (Auto) (2-11) % Eos % (Auto) (0-4) % Baso % (Auto) (0-2) % Lymph # (Auto) (1.2-4.9) X10*3/uL [place] # (Auto) (0.1-1.2) X10*3/uL Eos # (Auto) (0.0-0.4) X10*3/uL Baso # (Auto) (0.0-0.2) X10*3/uL Abs Immat Gran (auto) (0.00-0.03) X10*3/uL Absolute Neuts (auto) (2.0-8.3) x10*3/uL Absolute Nucleated RBC (0.0-0.012) X10*3/uL Nucleated RBC % (auto) (0.0-0.2) /100WBC Sodium (135-145) mmol/L Potassium (3.3-5.1) mmol/L Chloride (96-108) mmol/L Carbon Dioxide (22-29) mmol/L Anion Gap (12-20) BUN (9-16) mg/dL Creatinine (0.5-1.4) mg/dL Estim Creat Clear Calc Estimated GFR Random Glucose (60-115) mg/dL Lactic Acid (0.5-2.0) mmol/L Calcium (8.4-10.2) mg/dL Total Bilirubin (0.0-1.0) mg/dL AST (5-31) U/L ALT (0-31) U/L Alkaline Phosphatase (39-117) U/L Total Protein (6.5-8.0) g/dL Albumin (3.5-5.0) g/dL Urine Color Yellow Urine Appearance Cloudy Urine pH 8.5 (5.0-9.0) Ur Specific [place] 1.015 (1.005-1.025) Urine Protein 30 (1+) H (Neg-Trace) mg/dL Urine Glucose (UA) Negative (Negative) mg/dL Urine Ketones Trace (Negative) mg/dL Urine Blood Small (1+) H (Negative) Urine Nitrite Positive H (Negative) Ur Leukocyte Esterase Large (3+) H (Negative) Urine RBC 3-5 H (0-2) /HPF Urine WBC >50 H (0-5) /HPF Ur Squamous Epith Cells 0-2 (0-2) /HPF Urine Bacteria 3+ (None Seen) Hyaline Casts 11-20 (0-2) /LPF Medications Administered Generic Name Dose Route Start Last Admin Trade Name Freq PRN Reason Stop Dose Admin Enoxaparin Sodium 40 mg 10/10/22 23:00 10/10/22 23:16 Enoxaparin Sodium 40 Mg/0.4 Ml Syringe SUBCUT 40 mg Q24H DREW Administration Sodium Chloride 3 ml 10/11/22 00:00 10/10/22 23:47 0.9 % Sodium Chloride Flush 3 Ml Syringe IVFLUSH Not Given QSHIFT DREW Discontinued Medications Generic Name Dose Route Start Last Admin Trade Name Freq PRN Reason Stop Dose Admin Ceftriaxone Sodium 1 gm/ 50 mls @ 100 mls/hr 10/10/22 20:21 10/10/22 22:25 Sodium Chloride IV 10/10/22 20:50 Infused ONCE ONE Infusion Sodium Chloride 2,000 mls @ 999 mls/hr 10/10/22 20:29 10/10/22 20:56 Ns IVCONT 10/10/22 22:29 999 mls/hr .Q2H1M ONE Administration Oxcarbazepine 300 mg 10/10/22 23:04 10/10/22 23:16 Oxcarbazepine 300 Mg Tablet PO 10/10/22 23:05 300 mg ONCE ONE Administration Critical Care Time Critical Care Time Critical Care Time: Yes Total Critical Care Time: 60 Attestation: I have personally provided critical care time. Time includes review of lab data, radiology results, discussion with consultants, and monitoring for potential decompensation. Intervention performed as documented. Discharge Plan Discharge Clinical Impression: Acute pyelonephritis Patient Disposition: Admitted As Inpatient Prescriptions: No Action ascorbic acid (vitamin C) 500 mg tablet 500 mg PO DAILY 90 Days Qty: 90 3RF zolpidem 10 mg tablet 10 mg PO BEDTIME 7 Days Qty: 7 1RF clonazepam 0.5 mg tablet 0.5 mg PO BID PRN (Reason: anxiety) 30 Days Qty: 60 0RF cetirizine 10 mg tablet 10 mg PO DAILY 90 Days Qty: 90 1RF Artificial Tears(glycerin-peg) 1-0.3 % Drops 1 drp OPHTHALMIC (EYE) TID methenamine hippurate 1 gram tablet 1 g PO DAILY Rx Instructions: PT HELD WHILE ON ABX omeprazole 20 mg capsule,delayed release(DR/EC) 20 mg PO DAILY@0630 atorvastatin 40 mg tablet 40 mg PO DAILY albuterol sulfate 90 mcg/actuation HFA aerosol inhaler 2 puff inhalation Q4H PRN (Reason: shortness of breath or wheezing) 30 Days Qty: 8.5 3RF cholecalciferol (vitamin D3) [Vitamin D3] 25 mcg (1,000 unit) capsule 25 mcg PO DAILY Qty: 30 3RF fluticasone propionate 110 mcg/actuation HFA aerosol inhaler 110 mcg inhalation BID 30 Days Qty: 12 3RF cefuroxime axetil 500 mg tablet 500 mg PO BID 4 Days Qty: 8 0RF Restasis 0.05 % dropperette 1 drp ophthalmic (eye) Q12H metoprolol tartrate 25 mg tablet 12.5 mg PO BID oxcarbazepine 300 mg tablet 300 mg PO BID
[2022-10-10] MEDS: cefTRIAXone sodium 1 GM in 0.9 % Sodium Chloride 50 ML IV (20:51)
[2022-10-10] MEDS: 0.9 % Sodium Chloride 2,000 ML 999 ML IVCONT (20:56)
[2022-10-10 21:03] LABS: Lactic Acid 0.9 mmol/L (0.5-2.0)
[2022-10-10 21:44] LABS: Basophils Absolute Auto 0.1 X10*3/uL (0.0-0.2); Basophils Percent Auto 0.5 % (0-2); Eosinophils Percent Auto 0.2 % (0-4); Hematocrit 35.9 % (37.0-47.0); Hemoglobin 11.9 g/dl (12.0-16.0); Imm Gran Abs Auto 0.01 X10*3/uL (0.00-0.03); Imm Gran Pct Auto 0.1 % (0.0-0.4); Lymphocytes Absolute Auto 1.8 X10*3/uL (1.2-4.9); Mean Corpuscular HGB Conc 33.1 g/dl (31.0-35.0); Mean Corpuscular Hemoglobin 31.2 pg (27.0-33.0); Mean Platelet Volume 10.3 fL (9.4-12.3); Monocytes Percent Auto 9.3 % (2-11); Neutrophils Absolute Auto 8.2 x10*3/uL (2.0-8.3); Neutrophils Percent Auto 73.9 % (45-73); Platelet Count 188 X10*3/uL (160-400); Red Blood Count 3.82 X10*6/uL (4.20-5.50); Red Cell Distribution Width 12.9 % (11.0-16.0)
[2022-10-10 21:49] LABS: MANUAL DIFF FLAG NO
[2022-10-10 22:01] LABS: Alanine Aminotransferase 6 U/L (0-31); Albumin Level 3.7 g/dL (3.5-5.0); Alkaline Phosphatase 86 U/L (39-117); Anion Gap 13 (12-20); Aspartate Amino Transferase 13 U/L (5-31); Bilirubin Total 0.6 mg/dL (0.0-1.0); Blood Urea Nitrogen 16 mg/dL (9-16); Calcium 9.3 mg/dL (8.4-10.2); Carbon Dioxide 26 mmol/L (22-29); Chloride 103 mmol/L (96-108); Creatinine Clr Calc Pharmacy 68.2; Estimated Glomerular Filt Rate > 60; Glucose Random 95 mg/dL (60-115); Potassium 3.6 mmol/L (3.3-5.1); Sodium 138 mmol/L (135-145)
[2022-10-10 22:08] LABS: Appearance Urine Cloudy; Color Urine Yellow; Glucose Urine UA Negative (Negative); Leukocyte Esterase Urine Large (3+) (Negative); Nitrite Urine Positive (Negative); PH 8.5 (5.0-9.0); Specific Gravity - Urine 1.015 (1.005-1.025); UMIC TRIGGER UACC YES; Urine Blood Small (1+) (Negative); Urine Ketones Trace mg/dL (Negative); Urine Protein 30 (1+) mg/dL (Neg-Trace)
[2022-10-10 22:27] LABS: Bacteria Urine 3+ (None Seen); Squamous Epithelial Cell Urine 0-2 /HPF (0-2); UACC Culture Trigger YES; WBC Urine >50 /HPF (0-5)
--- NOTE | 2022-10-10 22:36 | P.HPHOSP_ITS ---
History of Present Illness Date of Service: 10/10/22 Chief Complaint: Abdominal Pain This is a 66-year-old female with pertinent history of mood disorder, QT prolongation on metoprolol, history of recurrent UTI due to self catheterization, insomnia, tobacco use disorder who presents to the emergency department for evaluation of fever and chills.? Patient states she has been having increased frequency that has been ongoing for the last 2-3 days.? It is associated with fevers, chills and nausea. Also complains of bilateral flank pain. Has frequent UTIs as she self catheterizes due to loss of bladder control.? Patient denies vomiting, chest discomfort, palpitations, shortness of breath, changes in bowel habits. In the emergency department, UA was concerning for UTI and she was found to be septic. Review of Systems Constitutional: Constitutional: Reports chills and Reports fever(s) Cardiovascular: Cardiovascular: Reports no additional cardiovascular complaints Respiratory: Respiratory: Reports no additional respiratory complaints Genitourinary: Genitourinary: Reports urinary urgency [facility] Medical History Bipolar 1 disorder Bladder cancer Bronchitis COPD (chronic obstructive pulmonary disease) Depression GERD (gastroesophageal reflux disease) Insomnia Narrow angle glaucoma suspect PTSD (post-traumatic stress disorder) Sarcoid Family History Father Lung cancer Mother Seizure HTN (hypertension) Diabetes mellitus Pacemaker Son In good health Maternal Grandmother Ovarian cancer Other Mental problem Surgical History History of bladder surgery History of dental surgery History of eye surgery Hx of cataract surgery Hx of hysterectomy Social History Household Members: None Housing: Apartment Do you presently have visiting nurse or other home services: No Alcohol intake: never Patient Tobacco Use Status: Current everyday Tobacco user Tobacco use type: Cigarette Cigarette Packs Per Day: 0.5 Cigarettes Per Day: 7 Smoked in Last 30 Days: Yes e-Cigarette/Vaping Use: Never Used Second Hand Smoke Exposure: No Use of substances other than those prescribed or required for medical reasons: No Advance Directives: No Advance Directives Information Provided: Yes service: No Current occupational status: disabled Sexual orientation: Straight/Heterosexual Gender identity: Female Cognitive needs: No Hearing needs: No Vision needs: Yes (glasses) Meds Allergies Allergy/AdvReac Type Severity Reaction Status Date / Time lamotrigine [From Lamictal] Allergy Mild RASH Verified 09/29/22 10:26 doxycycline [DOXYCYCLINE] Allergy Unknown stomach Verified 09/29/22 10:26 upset nefazodone [From Serzone] Allergy Unknown unknown Verified 09/29/22 10:26 penicillin V AdvReac Unknown vomitting, Verified 09/29/22 10:26 nausea bupropion [From Wellbutrin] AdvReac dizziness, Verified 09/29/22 10:26 shakiness Environmental Allergy Unknown SEASONAL Uncoded 06/23/22 16:04 NASAL DRIP, ITCHY EYES TEA AdvReac Mild NAUSEA & Uncoded 06/23/22 16:04 VOMITING TUNA FISH AdvReac Mild NAUSEA & Uncoded 06/23/22 16:04 VOMITIING Home Medications Medication Instructions Recorded Confirmed Last Taken Type metoprolol tartrate 25 mg tablet 12.5 mg PO BID 02/09/20 09/29/22 08/25/22 09:00 History oxcarbazepine 300 mg tablet 300 mg PO BID 02/09/20 09/29/22 08/25/22 09:00 History cyclosporine 0.05 % eye drops in a 1 drp ophthalmic (eye) Q12H 02/10/21 09/29/22 08/25/22 09:00 History dropperette (Restasis) atorvastatin 40 mg tablet 40 mg PO DAILY 06/23/22 09/29/22 08/25/22 09:00 History methenamine hippurate 1 gram tablet 1 g PO DAILY 08/25/22 09/29/22 08/25/22 09:00 History omeprazole 20 mg capsule,delayed 20 mg PO DAILY@0630 08/25/22 09/29/22 08/25/22 06:30 History release propylene glycol 1 %-glycerin 0.3 1 drp ophthalmic (eye) TID 08/25/22 09/29/22 08/25/22 09:00 History % eye drops (Artificial Tears (glycerin-peg)) Physical Exam Vital Signs and Narrative: Vital Signs: Last Vital Signs Temp 100.5 F H 10/10/22 20:15 Pulse 118 H 10/10/22 20:15 Resp 20 10/10/22 20:15 BP 140/95 H 10/10/22 20:15 Pulse Ox 95 10/10/22 20:15 O2 Del Method Room Air 10/10/22 20:15 BMI result Body Mass Index 22.1 Middle-aged female lying in bed in no distress Neck supple, no JVD Tachycardic with regular rhythm, S1-S2 heard Regular breath sounds bilaterally, no wheezing or crackles appreciated Abdomen soft nontender, no guarding, no rigidity, left CVA tenderness + Patient is awake, alert and oriented to self, place, time and person ; no focal motor deficit Psych: Normal mood No pedal edema Results Labs 10/10/22 21:37 10/10/22 21:37 Labs: Laboratory Results - last 24 hr 10/10/22 10/10/22 10/10/22 20:46 21:37 21:37 MCV 94.0 MCH 31.2 MCHC 33.1 RDW 12.9 Plt Count 188 MPV 10.3 Immature Gran % (Auto) 0.1 Neut % (Auto) 73.9 H Lymph % (Auto) 16.0 L [place] % (Auto) 9.3 Eos % (Auto) 0.2 Baso % (Auto) 0.5 Lymph # (Auto) 1.8 [place] # (Auto) 1.0 Eos # (Auto) 0.0 Baso # (Auto) 0.1 Abs Immat Gran (auto) 0.01 Absolute Neuts (auto) 8.2 Absolute Nucleated RBC 0.000 Nucleated RBC % (auto) 0.0 Anion Gap 13 Estim Creat Clear Calc 68.2 Estimated GFR > 60 Random Glucose 95 Lactic Acid 0.9 Calcium 9.3 Total Bilirubin 0.6 AST 13 ALT 6 Alkaline Phosphatase 86 Total Protein 7.0 Albumin 3.7 Urine Color Urine Appearance Urine pH Ur Specific [place] Urine Protein Urine Glucose (UA) Urine Ketones Urine Blood Urine Nitrite Ur Leukocyte Esterase Urine RBC Urine WBC Ur Squamous Epith Cells Urine Bacteria Hyaline Casts 10/10/22 22:00 MCV MCH MCHC RDW Plt Count MPV Immature Gran % (Auto) Neut % (Auto) Lymph % (Auto) [place] % (Auto) Eos % (Auto) Baso % (Auto) Lymph # (Auto) [place] # (Auto) Eos # (Auto) Baso # (Auto) Abs Immat Gran (auto) Absolute Neuts (auto) Absolute Nucleated RBC Nucleated RBC % (auto) Anion Gap Estim Creat Clear Calc Estimated GFR Random Glucose Lactic Acid Calcium Total Bilirubin AST ALT Alkaline Phosphatase Total Protein Albumin Urine Color Yellow Urine Appearance Cloudy Urine pH 8.5 Ur Specific [place] 1.015 Urine Protein 30 (1+) H Urine Glucose (UA) Negative Urine Ketones Trace Urine Blood Small (1+) H Urine Nitrite Positive H Ur Leukocyte Esterase Large (3+) H Urine RBC 3-5 H Urine WBC >50 H Ur Squamous Epith Cells 0-2 Urine Bacteria 3+ Hyaline Casts 11-20 Assessment and Plan (1) UTI (urinary tract infection): Status: Acute Plan This is a 66-year-old female with pertinent history of mood disorder, QT prolongation on metoprolol, history of recurrent UTI due to self c atheterization, insomnia, tobacco use disorder who presents to the emergency department for evaluation of fever and chills. #.? Sepsis due to acute UTI with clinical pyelonephritis.? Will admit patient for IV antibiotics.? History of recurrent UTI due to self catheterization. Noted previous urine culture. Resuscitated with IV crystalloids in the ER. Blood culture, urine culture and lactic acid obtained #.? Tobacco use disorder.? Counseled regarding cessation.? Refused nicotine patch #.? Mood disorder.? Continue home mood stabilizers #.? Mixed hyperlipidemia: On statin #. QT prolongation on metoprolol Med rec pending DVT prophylaxis:? Lovenox Full Code Regular diet Admit as inpatient and will require two night minimum hospital stay for IV antibiotics Time Spent With Patient Time: Total time managing care of this patient today ____ minutes. Quality Stroke Does the patient have a stroke diagnosis?: No VTE Prior VTE?: No VTE Risk Level:: Medical - moderate - high VTE Device Contraindication: Treatment Not Indicated VTE Drug Contraindication: N/A - Med Ordered
[2022-10-10] MEDS: Enoxaparin Sodium 40 MG/0.4 ML SYRINGE SUBCUT (23:16)
[2022-10-10] MEDS: OXcarbazepine 300 MG TABLET PO (23:16)
[2022-10-11] VITALS (7 sets, daily range): BP systolic 93–146; BP diastolic 57–87; PULSE 83–112; RESP 16–20; TEMP 36.2–37.7; O2SAT 94–98; BMI 22.7
--- NOTE | 2022-10-11 01:56 | PC.NURSE ---
Pt BP noted to be low, pt was sat up and BP improved. Pt states she just doesn't feel right. Pt stated she has not eaten since approx Wednesday. Pt was given a sandwich, will continue to monitor.
[2022-10-11 06:14] LABS: MANUAL DIFF FLAG NO
[2022-10-11 06:28] LABS: Anion Gap 11 (12-20); Blood Urea Nitrogen 13 mg/dL (9-16); Calcium 8.5 mg/dL (8.4-10.2); Carbon Dioxide 23 mmol/L (22-29); Chloride 110 mmol/L (96-108); Creatinine Clr Calc Pharmacy 74.8; Estimated Glomerular Filt Rate > 60; Glucose Random 99 mg/dL (60-115); Potassium 3.5 mmol/L (3.3-5.1); Sodium 140 mmol/L (135-145)
[2022-10-11 06:32] LABS: Basophils Percent Auto 0.3 % (0-2); Eosinophils Percent Auto 0.4 % (0-4); Hematocrit 34.3 % (37.0-47.0); Hemoglobin 11.2 g/dl (12.0-16.0); Imm Gran Abs Auto 0.02 X10*3/uL (0.00-0.03); Imm Gran Pct Auto 0.2 % (0.0-0.4); Lymphocytes Absolute Auto 1.3 X10*3/uL (1.2-4.9); Lymphocytes Percent Auto 12.8 % (20-40); Mean Corpuscular HGB Conc 32.7 g/dl (31.0-35.0); Mean Corpuscular Hemoglobin 31.1 pg (27.0-33.0); Mean Corpuscular Volume 95.3 fL (80.0-98.0); Mean Platelet Volume 10.8 fL (9.4-12.3); Monocytes Absolute Auto 1.1 X10*3/uL (0.1-1.2); Monocytes Percent Auto 11.4 % (2-11); Neutrophils Absolute Auto 7.5 x10*3/uL (2.0-8.3); Neutrophils Percent Auto 74.9 % (45-73); Platelet Count 180 X10*3/uL (160-400); Red Cell Distribution Width 13.1 % (11.0-16.0)
--- NOTE | 2022-10-11 08:50 | PHA.MEDREC ---
Pharmacy Consult ? Medication Reconciliation Pharmacy has completed the medication reconciliation. Reviewed med rec done by nursing, reached out to Steffanie regarding oxcarbazepine directions due to claim history discrepancy and what was entered into med rec. Cayla spoke with patient directly to confirm that she takes 300mg QAM and 600mg QPM. Zolpidem PRN
[2022-10-11] MEDS: Acetaminophen 325 MG TABLET 650 MG PO ×2 (08:56→14:50)
[2022-10-11] MEDS: 0.9 % Sodium Chloride Flush 3 ML SYRINGE IVFLUSH (08:56)
[2022-10-11] MEDS: OXcarbazepine 300 MG TABLET PO (08:56)
[2022-10-11] MEDS: ondansetron HCL 4 MG/2 ML VIAL IVPUSH (08:56)
--- NOTE | 2022-10-11 09:20 | MHC.CM.PN ---
IMM 10/11. Pt admitted with abdominal pain/UTI. Pt lives alone in apartment, is independent/ self-care, and has her own transportation home. D/C plan to return home self-care when medically cleared. Pt has HCP on file, pts brother Stefano [phone] who she requested be her main emergency contact and have her son Darrick removed from contacts as she does not want him contacted, task sent to registration department. PCP: Tian Pop vax: x [phone] nikki
[2022-10-11] MEDS: Ascorbic Acid 500 MG TABLET PO (10:26)
[2022-10-11] MEDS: Loratadine 10 MG TABLET PO (10:26)
[2022-10-11] MEDS: Cholecalciferol (Vitamin D3) 25 MCG TABLET PO (10:26)
[2022-10-11] MEDS: Metoprolol Tartrate 12.5 MG HALFTAB PO (10:26)
[2022-10-11] MEDS: Dextrose 5 % and Lactated Ring 1,000 ML 100 ML IVCONT (10:26)
[2022-10-11] MEDS: Atorvastatin Calcium 40 MG TABLET PO (10:26)
--- NOTE | 2022-10-11 13:41 | P.PNIM_ITS ---
Subjective Subjective Date of Service: 10/11/22 Interval History: Complaining of nausea generalized body ache, abdominal and flank pain, decreased appetite, requesting supplies to self cath and to irrigate her bladder, since she underwent bladder reconstructive surgery in [place] with part of colon, therefore requires bladder irrigation to remove mucus, denies fever chills. Review of Systems All other system reviewed and negative Physical Exam Vital Signs: Vital Signs: Last Vital Signs Temp 97.2 F 10/11/22 11:40 Pulse 83 10/11/22 11:40 Resp 18 10/11/22 11:40 BP 110/65 10/11/22 11:40 Pulse Ox 95 10/11/22 11:40 O2 Del Method Room Air 10/11/22 11:40 BMI result Body Mass Index 22.7 Const: Other: General resting comfortably in no acute distress. Neck supple no JVD. CVS regular rate rhythm, Respiratory lungs clear to auscultation, no respiratory distress see Gastrointestinal abdomen soft, nontender, bowel sounds audible, no guarding , no rigidity. Extremities no edema. Neuro nonfocal Skin no rash Psych appropriate affect Objective Data Active Medications Acetaminophen (Acetaminophen 325 Mg Tablet) 650 mg PO Q6H PRN PRN Reason: Pain, Mild (Pain Scale 1-3) Last Admin: 10/11/22 08:56 Dose: 650 mg Documented By: CHARLI Albuterol Sulfate (Albuterol Sulfate 90 Mcg 8 Gm Inhaler) 2 puff INHALE Q4H PRN PRN Reason: shortness of breath or wheezing Artificial Tears (Artificial Tears 15 Ml Drops) 1 drop EYE-BOTH TID [facility] Ascorbic Acid (Ascorbic Acid 500 Mg Tablet) 500 mg PO DAILY [facility] Last Admin: 10/11/22 10:26 Dose: 500 mg Documented By: CHARLI Atorvastatin Calcium (Atorvastatin Calcium 40 Mg Tablet) 40 mg PO DAILY [facility] Last Admin: 10/11/22 10:26 Dose: 40 mg Documented By: CHARLI Clonazepam (Clonazepam 0.5 Mg Tablet) 0.5 mg PO BID PRN PRN Reason: anxiety Enoxaparin Sodium (Enoxaparin Sodium 40 Mg/0.4 Ml Syringe) 40 mg SUBCUT Q24H [facility] Last Admin: 10/10/22 23:16 Dose: 40 mg Documented By: AMIRA Fluticasone Propionate (Fluticasone Propionate 100 Mcg Blst.W.Dev) 1 puff INHALE RBID [facility] Ceftriaxone Sodium 1 gm/ (Sodium Chloride) 50 mls @ 100 mls/hr IV Q24H [facility] Dextrose/Lactated Ringer's (D5lr) 1,000 mls @ 100 mls/hr IVCONT .Q10H [facility] Stop: 10/11/22 19:44 Last Admin: 10/11/22 10:26 Dose: 100 mls/hr Documented By: CHARLI Loratadine (Loratadine 10 Mg Tablet) 10 mg PO DAILY [facility] Last Admin: 10/11/22 10:26 Dose: 10 mg Documented By: CHARLI Melatonin (Melatonin 3 Mg Tablet) 6 mg PO BEDTIME PRN PRN Reason: Insomnia Metoprolol Tartrate (Metoprolol Tartrate 12.5 Mg Halftab) 12.5 mg PO BID [facility]; Protocol Last Admin: 10/11/22 10:26 Dose: 12.5 mg Documented By: CHARLI Non-Formulary Medication (Cyclosporine [Restasis]) 1 drop EYE-BOTH Q12H [facility] Omeprazole (Omeprazole 20 Mg Capsule.Dr) 20 mg PO DAILY@0630 [facility] Ondansetron HCl (Ondansetron Hcl 4 Mg/2 Ml Vial) 4 mg IVPUSH Q8H PRN PRN Reason: Nausea and Vomiting Last Admin: 10/11/22 08:56 Dose: 4 mg Documented By: CHARLI Oxcarbazepine (Oxcarbazepine 300 Mg Tablet) 300 mg PO DAILY [facility] Last Admin: 10/11/22 08:56 Dose: 300 mg Documented By: CHARLI Oxcarbazepine (Oxcarbazepine 300 Mg Tablet) 600 mg PO BEDTIME [facility] Pharmacy Consult (Consult Rx Perform Med Rec) 1 each MISCELLANE ONCE PRN PRN Reason: Consult order Sodium Chloride (0.9 % Sodium Chloride Flush 3 Ml Syringe) 3 ml IVFLUSH QSHIFT [facility] Last Admin: 10/11/22 08:56 Dose: 3 ml Documented By: CHARLI Vitamin D (Cholecalciferol (Vitamin D3) 25 Mcg Tablet) 25 mcg PO DAILY [facility] Last Admin: 10/11/22 10:26 Dose: 25 mcg Documented By: CHARLI Zolpidem Tartrate (Zolpidem Tartrate 5 Mg Tablet) 10 mg PO BEDTIME PRN PRN Reason: Sleep Labs 10/11/22 05:58 10/11/22 05:58 Labs: Laboratory Results - last 24 hr 10/10/22 10/10/22 10/10/22 20:46 21:37 21:37 MCV 94.0 MCH 31.2 MCHC 33.1 RDW 12.9 Plt Count 188 MPV 10.3 Immature Gran % (Auto) 0.1 Neut % (Auto) 73.9 H Lymph % (Auto) 16.0 L [place] % (Auto) 9.3 Eos % (Auto) 0.2 Baso % (Auto) 0.5 Lymph # (Auto) 1.8 [place] # (Auto) 1.0 Eos # (Auto) 0.0 Baso # (Auto) 0.1 Abs Immat Gran (auto) 0.01 Absolute Neuts (auto) 8.2 Absolute Nucleated RBC 0.000 Nucleated RBC % (auto) 0.0 Anion Gap 13 Estim Creat Clear Calc 68.2 Estimated GFR > 60 Random Glucose 95 Lactic Acid 0.9 Calcium 9.3 Total Bilirubin 0.6 AST 13 ALT 6 Alkaline Phosphatase 86 Total Protein 7.0 Albumin 3.7 Urine Color Urine Appearance Urine pH Ur Specific [place] Urine Protein Urine Glucose (UA) Urine Ketones Urine Blood Urine Nitrite Ur Leukocyte Esterase Urine RBC Urine WBC Ur Squamous Epith Cells Urine Bacteria Hyaline Casts 10/10/22 10/11/22 10/11/22 22:00 05:58 05:58 MCV 95.3 MCH 31.1 MCHC 32.7 RDW 13.1 Plt Count 180 MPV 10.8 Immature Gran % (Auto) 0.2 Neut % (Auto) 74.9 H Lymph % (Auto) 12.8 L [place] % (Auto) 11.4 H Eos % (Auto) 0.4 Baso % (Auto) 0.3 Lymph # (Auto) 1.3 [place] # (Auto) 1.1 Eos # (Auto) 0.0 Baso # (Auto) 0.0 Abs Immat Gran (auto) 0.02 Absolute Neuts (auto) 7.5 Absolute Nucleated RBC 0.000 Nucleated RBC % (auto) 0.0 Anion Gap 11 L Estim Creat Clear Calc 74.8 Estimated GFR > 60 Random Glucose 99 Lactic Acid Calcium 8.5 D Total Bilirubin AST ALT Alkaline Phosphatase Total Protein Albumin Urine Color Yellow Urine Appearance Cloudy Urine pH 8.5 Ur Specific [place] 1.015 Urine Protein 30 (1+) H Urine Glucose (UA) Negative Urine Ketones Trace Urine Blood Small (1+) H Urine Nitrite Positive H Ur Leukocyte Esterase Large (3+) H Urine RBC 3-5 H Urine WBC >50 H Ur Squamous Epith Cells 0-2 Urine Bacteria 3+ Hyaline Casts 11-20 Microbiology Microbiology Results: Microbiology 10/10/22 22:27 Urine Culture - Final Urine clean catch - Urine [place] top Assessment and Plan (1) Acute pyelonephritis: Status: Acute (2) HLD (hyperlipidemia): Status: Acute (3) Tobacco dependence: Status: Acute Plan 66-year-old female with pertinent history of mood disorder, QT prolongation on metoprolol, history of recurrent UTI due to self catheterization, insomnia, tobacco use disorder who presents to the emergency department for evaluation of fever and chills. #.? Sepsis due to acute pyelonephritis. Complaining of flank pain ,WBC normalized, no fevers, History of recurrent UTI due to self catheterization. Continue IV ceftriaxone d1, follow urine and blood cultures, lactic acid no rmal. 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 Will consult Urology #.? Tobacco use disorder.? Counseled regarding cessation.? Refused nicotine patch #.? Mood disorder.? Continue Trileptal #.? Mixed hyperlipidemia: Continue Lipitor #.? QT prolongation on metoprolol DVT prophylaxis:? Lovenox Full Code Patient will need continued inpatient hospitalization for IV antibiotics and close clinical follow-up . Time Spent With Patient Time: Total time managing care of this patient today ____ minutes. Quality Stroke Does the patient have a stroke diagnosis?: No VTE Prior VTE?: No VTE Risk Level:: Medical - moderate - high VTE Device Contraindication: Treatment Not Indicated VTE Drug Contraindication: N/A - Med Ordered
--- NOTE | 2022-10-11 14:53 | PM.EVENT ---
Event Note Date of Service: 10/11/22 Event Note: Called by RN that patient wishes to leave against medical advice Went to see patient she sitting comfortably in bed with a fever of 100 point 5 she is upset that she did not receive Tylenol right away Patient nurses in the room with Tylenol At present patient talking in full sentences no lightheadedness no dizziness Back no CVA tenderness Acute pyelonephritis continue IV antibiotics and Tylenol inform patient about risk of worsening infection, sepsis, if leave against medical advice, patient agreed to stay and take Tylenol for now. Time Spent With Patient Time: Total time managing care of this patient today ____ minutes.
--- NOTE | 2022-10-11 16:35 | PC.NURSE ---
Patient is alert and oriented to place,self, time and location. Patient stated she wanted to leave and sign her self out. Dr. Brice was called to the bedside @ 1446 to discuss with patient leaving ama. Patient stated her concerns were with her temperature being 100.5. Prn tylenol given 6 hours after first dose. See MAY. Recheck temperature inn 30 minutes, results documented @ 99.5. Patient stated she would stay at time to let the tylenol work. [place] alarm on, frequent rounding for safety and to make sure needs are met.
--- NOTE | 2022-10-11 16:52 | PC.NURSE ---
Patient alert and oriented to self, person place and time. Patient states her needs are not being met, patient stated she want to sign herself out and go to another hospital. Patient received AMA paper work to sign herself out. Patient IV fluids discontinued, IV removed @ 1640. Patient left room on her own.
--- NOTE | 2022-10-15 18:58 | PM.DS ---
DS: Providers Provider Date of Service: 10/11/22 Date of admission: 10/10/22 22:35 Primary care physician: Petros Verduzco PA-C Consults: 10/11/22 13:53 Consult to Urology Routine Consulting Provider: Luan Scott Reason for consultation: Emphysematous pyelitis Has provider been notified: No DS: Diagnosis Discharge Diagnosis (1) Acute pyelonephritis: Status: Acute (2) HLD (hyperlipidemia): Status: Acute (3) Tobacco dependence: Status: Acute DS: Summary Hospital Course Hospital Course: Date of Service: 10/10/22 Chief Complaint: Abdominal Pain This is a 66-year-old female with pertinent history of mood disorder, QT prolongation on metoprolol, history of recurrent UTI due to self catheterization, status post bladder surgery, insomnia, tobacco use disorder who presents to the emergency department for evaluation of fever and chills.? Patient states she has been having increased frequency that has been ongoing for the last 2-3 days.? It is associated with fevers, chills and nausea.? Also complains of bilateral flank pain. Has frequent UTIs as she self catheterizes due to loss of bladder control.? Patient denies vomiting, chest discomfort, palpitations, shortness of breath, changes in bowel habits. In the emergency department, UA was concerning for UTI and she was found to be septic. hospital course: 66-year-old female with pertinent history of mood disorder, QT prolongation on metoprolol, history of recurrent UTI due to self catheterization, insomnia, tobacco use disorder who presents to the emergency department for evaluation of fever and chills. #.? 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 ?? ? #.? Tobacco use disorder.? Counseled regarding cessation, patient declined nicotine patch #.? Mood disorder.? Continue Trileptal #.? Mixed hyperlipidemia:? Continue Lipitor #.? QT prolongation continue metoprolol Time Spent with Patient Time attestation: Total time managing care of this patient today ____ minutes. Discharge coordination time: Greater than 30 minutes Quality: Safe Use of Opioids Does Pt have an Active Cancer Diagnosis on the Problem List?: No Quality: Stroke Does the patient have a stroke diagnosis?: No Physical Exam Vital Signs: Vital Signs: Last Vital Signs Temp 99.4 F 10/11/22 15:55 Pulse 102 H 10/11/22 15:32 Resp 20 10/11/22 15:32 BP 136/75 10/11/22 15:32 Pulse Ox 95 10/11/22 15:32 O2 Del Method Room Air 10/11/22 15:32 BMI result Body Mass Index 22.7 Const: Other: General? awake alert x3, in no acute distress.? Neck? supple no JVD. CVS? regular rate rhythm, Respiratory lungs clear to auscultation, no respiratory distress see Gastrointestinal abdomen soft, non tender, bowel sounds audible, no guarding , no rigidity. Extremities no edema. Neuro non focal Skin no rash Psych appropriate affect DS: Data Data Completed and Pending Labs on day of discharge: Preliminary micro results at discharge 10/10/22 20:46 Blood Culture - Preliminary Blood - Venous No growth after 48 hours. 10/10/22 20:46 Blood Culture - Preliminary Blood - Venous No growth after 48 hours. Discharge Plan Discharge Patient Disposition: Left Against Medical Advice Discharge Diagnosis: sepsis due to acute pyelonephritis Referrals: Petros Verduzco PA-C [Primary Care Provider] - 1 Week Discharge Medications: No Action ascorbic acid (vitamin C) 500 mg tablet 500 mg PO DAILY 90 Days Qty: 90 3RF clonazepam 0.5 mg tablet 0.5 mg PO BID PRN (Reason: anxiety) 30 Days Qty: 60 0RF cetirizine 10 mg tablet 10 mg PO DAILY 90 Days Qty: 90 1RF Artificial Tears(glycerin-peg) 1-0.3 % Drops 1 drp OPHTHALMIC (EYE) TID methenamine hippurate 1 gram tablet 1 g PO DAILY Rx Instructions: PT HELD WHILE ON ABX omeprazole 20 mg capsule,delayed release(DR/EC) 20 mg PO DAILY@0630 zolpidem 10 mg tablet 10 mg PO BEDTIME PRN (Reason: Sleep) atorvastatin 40 mg tablet 40 mg PO DAILY albuterol sulfate 90 mcg/actuation HFA aerosol inhaler 2 puff inhalation Q4H PRN (Reason: shortness of breath or wheezing) 30 Days Qty: 8.5 3RF cholecalciferol (vitamin D3) [Vitamin D3] 25 mcg (1,000 unit) capsule 25 mcg PO DAILY Qty: 30 3RF fluticasone propionate 110 mcg/actuation HFA aerosol inhaler 110 mcg inhalation BID 30 Days Qty: 12 3RF cefuroxime axetil 500 mg tablet 500 mg PO BID 4 Days Qty: 8 0RF Restasis 0.05 % dropperette 1 drp ophthalmic (eye) Q12H metoprolol tartrate 25 mg tablet 12.5 mg PO BID oxcarbazepine 300 mg tablet 300 mg PO BID Discharge Orders: Discharge Order (Routine); Ordered 10/19/22 Ordered By: Naren Brice Care Plan Goals: return to check with worsening fever chills abdominal pain or urinary symptoms Health Concerns: continue all home medications as before Plan of Treatment: follow-up with primary care physician Assessment: as above Discharge Date/Time: 10/11/22 17:17
== END 2022-10-11 17:17 | disposition left against medical advice (07) | DRG 698 ==
LOC: HO.ED 10-11 00:09 → HO.EDOVER 10-11 00:45 → HO.IMC 10-11 07:31
PROVIDERS: Nurse Practitioner Family; Admitting Provider Student in an Organized Health Care Education/Training Program; Emergency Provider Emergency Medicine; PCP Physician Assistant; Visit Provider Hospitalist
DX: T83.518A Infection and inflammatory reaction due to other urinary catheter, initial encounter (principal); A41.9 Sepsis, unspecified organism; N10 Acute pyelonephritis; F31.9 Bipolar disorder, unspecified; F43.10 Post-traumatic stress disorder, unspecified; E78.2 Mixed hyperlipidemia; R94.31 Abnormal electrocardiogram [ECG] [EKG]; Z71.6 Tobacco abuse counseling; Z87.440 Personal history of urinary (tract) infections; Z85.51 Personal history of malignant neoplasm of bladder; Z88.0 Allergy status to penicillin; Z88.1 Allergy status to other antibiotic agents; Z79.51 Long term (current) use of inhaled steroids; Z79.899 Other long term (current) drug therapy
CPT/HCPCS: 36415; 80048; 80053; 81001; 83605; 85025; 87040; 87086; 99222; 99285; J0696; J1650; J2405

== ENCOUNTER → 2022-10-10 20:54 | Outpatient (BNV) | payer MEDICARE, SELFPAY | PROVIDERS: Emergency Provider Emergency Medicine; PCP Physician Assistant; Visit Provider Student in an Organized Health Care Education/Training Program | DX: N10 Acute pyelonephritis (principal); E78.2 Mixed hyperlipidemia; F17.200 Nicotine dependence, unspecified, uncomplicated; Z53.29 Procedure and treatment not carried out because of patient's decision for other reasons | CPT/HCPCS: 99222; 99233; 99239 ==

== ENCOUNTER 2022-10-28 14:04 | Outpatient (AMB) | payer MEDICARE, SELFPAY ==
--- NOTE | 2022-10-28 14:05 | A.OFFPC_ITS ---
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: No Allergies lamotrigine [From Lamictal] Allergy (Mild, Verified 11/05/22 06:36) RASH doxycycline [DOXYCYCLINE] Allergy (Unknown, Verified 11/05/22 06:36) stomach upset nefazodone [From Serzone] Allergy (Unknown, Verified 11/05/22 06:36) unknown penicillin V Adverse Reaction (Unknown, Verified 11/05/22 06:36) vomitting, nausea bupropion [From Wellbutrin] Adverse Reaction (Verified 11/05/22 06:36) dizziness, shakiness Environmental Allergy (Unknown, Uncoded 11/05/22 06:36) SEASONAL NASAL DRIP, ITCHY EYES TEA Adverse Reaction (Mild, Uncoded 11/05/22 06:36) NAUSEA & VOMITING TUNA FISH Adverse Reaction (Mild, Uncoded 11/05/22 06:36) NAUSEA & VOMITIING Tobacco use date assessed: 10/28/22 Fall risk assessment: No Falls in past year Last assessed Fall Risk: 10/28/22 Dental Screening Dental Screen Date: 10/28/22 Did you have a dental visit in the last 12 months?: Yes Did you have a dental problem in the last 6 months where you did not have access to dental care?: No HPI HPI Comments History of Present Illness Details 66-year-old female with history of bladder cancer s/p bladder reconstructive surgery at [facility] who self catheterizes with recurrent UTIs, COPD, and bipolar disorder presents to the office for hospital discharge follow-up. She was initially admitted to [facility] from 10/10- due Pyelonep hritis. On admission, patient had a leukocytosis of 11.0 and vital signs significant for mild tachycardia, febrile to 1005. CT abdomen/pelvis showed gas within the right renal collecting system consistent with emphysematous pyelitis but without any acute inflammatory changes. Urology consult had been placed but patient left AMA before evaluation. She was empirically treated with IV ceftriaxone. Urine culture and blood cultures at [facility] did end up negative. The patient decided to return to [facility] given this is where her surgeries have been performed for further management. On Admission to [facility], she had leukocytosis of 12.69 with positive urinalysis. Normal lactic acid. CT abdomen/pelvis negative for any acute intra abdominal abnormality. Chest x-ray performed did show left lower lobe consolidation consistent with pneumonia. She was admitted for further treatment of urosepsis with pneumonia. She was treated with IV ceftriaxone. While in the hospital, she was also treated with read of your 200 mg x 1 and hospital for iron deficiency anemia with H/H 11.3. She completed course of antibiotics while admitted. She was discharged home. She tells me she has upcoming appointment with Urology ([facility] at [facility] [place]) on November [address] of the abdomen/pelvis on December 10. Today she is feeling well. No urinary symptoms, cough, chest derek n. She does have intermittent sob. No fevers. [facility] Medical History Bipolar 1 disorder Bladder cancer Bronchitis COPD (chronic obstructive pulmonary disease) Depression GERD (gastroesophageal reflux disease) HLD (hyperlipidemia) Insomnia Narrow angle glaucoma suspect PTSD (post-traumatic stress disorder) Sarcoid Tobacco dependence Surgical History History of bladder surgery History of dental surgery History of eye surgery Hx of cataract surgery Hx of hysterectomy Family History Father Lung cancer Mother Seizure HTN (hypertension) Diabetes mellitus Pacemaker Son In good health Maternal Grandmother Ovarian cancer Other Mental problem Social History Household Members: None Housing: Apartment Do you presently have visiting nurse or other home services: No Alcohol intake: never Patient Tobacco Use Status: Current someday Tobacco user Tobacco use type: Cigarette Cigarette Packs Per Day: 0.5 Cigarettes Per Day: 1 e-Cigarette/Vaping Use: Never Used Second Hand Smoke Exposure: No Advance Directives: No service: No Current occupational status: disabled Sexual orientation: Straight/Heterosexual Gender identity: Female Cognitive needs: No Hearing needs: No Vision needs: Yes (glasses) Female Reproductive History Menstrual Age of Menarche: 13 Questionnaire Thrive Questionnaire Date Thrive assessed: 10/11/22 AUDIT C Alcohol Use Questionnaire (AUDIT-C) 1. How often do you have a drink containing alcohol?: Never 2. How many drinks containing alcohol do you have on a typical day when you are drinking?: 1 or 2 3. How often do you have six or more drinks on one occasion?: Never Total Score: 0 CAROLYN-7 AMB Questionnaire CAROLYN-7 Date CAROLYN - 7 assessed: 06/23/22 Source: Developed by Drs. Earnest Arvizu, Kyleigh Iglesias, Amandeep Ronquillo and colleagues, with an educational maurice from [employer]. Review of Systems Const All systems reviewed & are unremarkable except as noted in HPI and below Physical exam (Primary Care) Vital Signs: Last Vital Signs Pulse 107 H 10/28/22 14:07 BP 136/72 10/28/22 14:07 Pulse Ox 97 10/28/22 14:07 Oxygen Delivery Method Room Air 10/28/22 14:07 BMI result Body Mass Index 21.8 Tobacco/Smoking Status: Tobacco use Status Tobacco use date assessed 10/28/22 10/28/22 14:11 Patient Tobacco Use Status Current someday Tobacco 10/28/22 14:06 Tobacco use type Cigarette 10/28/22 14:06 e-Cigarette/Vaping Use Never Used 10/28/22 14:06 Thrive Assessment: Date of Thrive Assessment Date Thrive assessed 10/11/22 10/28/22 14:06 Const Other: Constitutional - Awake and Alert, No apparent distress Eyes - PERRLA, EOMI Cardiovascular - S1S2, RRR, No edema Respiratory - Normal lung expansion, Normal respiratory effort, No respiratory distress, CTA bilaterally Gastrointestinal - NT / ND; +BS; No rebound or guarding - No CVA tenderness Extremities - no calf tenderness bilaterally, no swelling Skin - Warm/Dry Neurological - Alert & oriented x3 Results Reviewed Results Reviewed: H&P, DS x2, CBC, BMP, lactic acid, ct abd/pelvis, UA/UC, BC Assessment and Plan Assessment & Plan (1) Hypokalemia: Code(s): E87.6 - Hypokalemia Plan: Noted at [facility], repleted. BMP ordered to check electrolytes ensure resolution (2) COPD (chronic obstructive pulmonary disease): Code(s): J44.9 - Chronic obstructive pulmonary disease, unspecified Qualifiers: COPD type: chronic bronchitis Chronic bronchitis type: simple Qualified Code(s): J41.0 - Simple chronic bronchitis Plan: Patient continues with intermittent shortness of breath following pneumonia despite compliance with Flovent and albuterol. She has recurrent episodes of bronchitis. Lungs are clear to auscultation in the office today and there is no hypoxia. Continue Flovent and albuterol as needed. PFT ordered (3) Pneumonia: Code(s): J18.9 - Pneumonia, unspecified organism Plan: Treated with IV ceftriaxone at [facility] where x-ray noted left lower lobe pneumonia. Denies ongoing fevers, cough. Has sob as above. Repeat CXR in 4-6 weeks to ensure resolution. (4) Microcytic anemia: Code(s): D50.9 - Iron deficiency anemia, unspecified Plan: Iron studies and CBC ordered. No heavy bleeding. Has colonosopy scheduled (5) Acute pyelonephritis: Code(s): N10 - Acute pyelonephritis Plan: With sepsis. Resolved following IV ceftriaxone. No flank pain or ongoing urinary symptoms. Patient has complicated urological history with bladder reconstruction. She is currently asymptomatic. Continue with self- catheterizations in follow-up with Urology as scheduled on November 16.. Orders: Orders IRON PROFILE 10/28/22 D50.9 - Iron deficiency anemia, unspecified Complete Blood Count Auto Diff 10/28/22 D50.9 - Iron deficiency anemia, unspecified PFT pulmonary function test 10/28/22 R06.02 - Shortness of breath, F17.200 - Nicotine dependence, unspecified, uncomplicated XR chest 2V 10/28/22 J18.9 - Pneumonia, unspecified organism, R06.02 - Shortness of breath Basic Metabolic Panel 10/28/22 E87.6 - Hypokalemia Medications: Discontinued methenamine hippurate 1 g PO BID 60 tabs 3RF zolpidem 10 mg PO BEDTIME 7 days 7 tabs 1RF G47.00 - Insomnia, unspecified omeprazole 20 mg PO DAILY 90 days 90 caps 1RF K21.9 - Gastro-esophageal reflux disease without esophagitis Coding Level of Care Code Est Pt Level 5 (69424) Diagnoses Hypokalemia E87.6 COPD (chronic obstructive pulmonary disease) J41.0 COPD type: chronic bronchitis Chronic bronchitis type: simple Pneumonia J18.9 Microcytic anemia D50.9 Acute pyelonephritis N10 Time Spent (min) 45 Comment time spent with patient, reviewing as above, and on documentation
[2022-10-28 14:07] VITALS: BP 136/72; PULSE 107; O2SAT 97; BMI 21.8
== END 2022-10-28 14:43 | disposition home or self-care (01) ==
LOC: HO.HMGH 14:04
PROVIDERS: PCP Physician Assistant; Visit Provider Physician Assistant
DX: E87.6 Hypokalemia (principal); J41.0 Simple chronic bronchitis; J18.9 Pneumonia, unspecified organism; D50.9 Iron deficiency anemia, unspecified; N10 Acute pyelonephritis
CPT/HCPCS: 99215

== ENCOUNTER 2022-11-05 06:34 | Emergency (ER) | payer MEDICARE, SELFPAY ==
--- NOTE | ~2022-11-05 | XR_ITS ---
EXAMINATION: XR CHEST 2 VIEW CLINICAL INFORMATION: Cough and shortness of breath for 3 days COMPARISON: None TECHNIQUE: PA and lateral views of the chest obtained. FINDINGS: The lungs are clear. Inflation and Lucencies in the upper lung zones are again evident, suggesting underlying chronic obstructive pulmonary disease. There are no pleural effusions. The cardiomediastinal silhouette is normal. XR/XR chest 2V IMPRESSION: COPD. No active cardiopulmonary disease.
[2022-11-05 06:36] VITALS: BP 152/87; PULSE 85; RESP 20; TEMP 37.2; O2SAT 97; BMI 22.1
[2022-11-05 07:20] LABS: COVID-19 Test Negative (Negative); IDNOW Serial# 6674DD1D
--- NOTE | 2022-11-05 09:06 | ED.URI ---
HPI - URI/Sore Throat General Chief Complaint: Upper Respiratory Symptoms Stated Complaint: SoB, flu like symptoms Time Seen by Provider: 11/05/22 08:29 Source: patient Mode of arrival: ambulatory Limitations: no limitations History of Present Illness HPI Narrative: 66-year-old female with history of asthma and COPD presents with cough and shortness of breath. Symptoms started 3 days ago. Symptoms are worse with exertion. She has had subjective fevers but nothing objectively. She had no nausea vomiting, diarrhea or constipation. She did reports mucus production that is yellow and nonbloody. She denies any chest pain. There are no clear relieving features. She reports positive sick contacts. Related Data Home Medications Medication Instructions Recorded Confirmed metoprolol tartrate 25 mg tablet 12.5 mg PO BID 02/09/20 10/10/22 oxcarbazepine 300 mg tablet 300 mg PO BID 02/09/20 10/10/22 cyclosporine 0.05 % eye drops in a 1 drp ophthalmic (eye) Q12H 02/10/21 10/10/22 dropperette (Restasis) atorvastatin 40 mg tablet 40 mg PO DAILY 06/23/22 10/10/22 methenamine hippurate 1 gram tablet 1 g PO DAILY 08/25/22 10/10/22 omeprazole 20 mg capsule,delayed 20 mg PO DAILY@0630 08/25/22 10/10/22 release propylene glycol 1 %-glycerin 0.3 1 drp ophthalmic (eye) TID 08/25/22 10/10/22 % eye drops (Artificial Tears (glycerin-peg)) zolpidem 10 mg tablet 10 mg PO BEDTIME PRN Sleep 10/11/22 10/11/22 potassium chloride 10 mEq 10 meq PO DAILY 10/28/22 tablet,extended release Previous Rx's Medication Instructions Recorded ascorbic acid (vitamin C) 500 mg 500 mg PO DAILY 90 days #90 tabs 12/16/20 tablet albuterol sulfate 90 mcg/actuation 2 puff inhalation Q4H PRN 06/23/22 aerosol inhaler shortness of breath or wheezing 30 days #8.5 grams cholecalciferol (vitamin D3) 25 25 mcg PO DAILY #30 caps 06/23/22 mcg (1,000 unit) capsule (Vitamin D3) fluticasone propionate 110 110 mcg inhalation BID 30 days #12 06/23/22 mcg/actuation HFA aerosol inhaler grams clonazepam 0.5 mg tablet 0.5 mg PO BID PRN anxiety 30 days 09/21/22 #60 tabs cetirizine 10 mg tablet 10 mg PO DAILY 90 days #90 tabs 09/25/22 azithromycin 250 mg tablet 250 mg PO DAILY 5 days #6 tabs 11/05/22 prednisone 20 mg tablet 20 mg PO DAILY #5 tabs 11/05/22 Allergies Allergy/AdvReac Type Severity Reaction Status Date / Time lamotrigine [From Lamictal] Allergy Mild RASH Verified 11/05/22 06:36 doxycycline [DOXYCYCLINE] Allergy Unknown stomach Verified 11/05/22 06:36 upset nefazodone [From Serzone] Allergy Unknown unknown Verified 11/05/22 06:36 penicillin V AdvReac Unknown vomitting, Verified 11/05/22 06:36 nausea bupropion [From Wellbutrin] AdvReac dizziness, Verified 11/05/22 06:36 shakiness Environmental Allergy Unknown SEASONAL Uncoded 11/05/22 06:36 NASAL DRIP, ITCHY EYES TEA AdvReac Mild NAUSEA & Uncoded 11/05/22 06:36 VOMITING TUNA FISH AdvReac Mild NAUSEA & Uncoded 11/05/22 06:36 VOMITIING Review of Systems Review of Systems: CONSTITUTIONAL: Denies weight loss, +fever - chills. HEENT: Denies changes in vision and hearing. RESPIRATORY: + SOB and cough. CV: Denies palpitations no CP. GI: Denies abdominal pain, nausea, vomiting and diarrhea. : Denies dysuria and urinary frequency. MSK: Denies myalgia and joint pain. SKIN: Denies rash and pruritus. NEUROLOGICAL: Denies headache and syncope. PSYCHIATRIC: Denies recent changes in mood. Denies anxiety and depression. All other ROS are negative unless in HPI PMFSH Past Medical History Medical History Bipolar 1 disorder Bladder cancer Bronchitis COPD (chronic obstructive pulmonary disease) Depression GERD (gastroesophageal reflux disease) HLD (hyperlipidemia) Insomnia Narrow angle glaucoma suspect PTSD (post-traumatic stress disorder) Sarcoid Tobacco dependence Surgical History History of bladder surgery History of dental surgery History of eye surgery Hx of cataract surgery Hx of hysterectomy Family History Family History Father Lung cancer Mother Seizure HTN (hypertension) Diabetes mellitus Pacemaker Son In good health Maternal Grandmother Ovarian cancer Other Mental problem Social History Social History Household Members: None Housing: Apartment Do you presently have visiting nurse or other home services: No Alcohol intake: never Patient Tobacco Use Status: Current someday Tobacco user Tobacco use type: Cigarette Cigarette Packs Per Day: 0.5 Cigarettes Per Day: 1 e-Cigarette/Vaping Use: Never Used Second Hand Smoke Exposure: No Advance Directives: No service: No Current occupational status: disabled Sexual orientation: Straight/Heterosexual Gender identity: Female Cognitive needs: No Hearing needs: No Vision needs: Yes (glasses) Physical Exam Vital Signs: Vital Signs: Last Vital Signs Temp 98.9 F 11/05/22 06:36 Pulse 85 11/05/22 06:36 Resp 20 11/05/22 06:36 BP 152/87 H 11/05/22 06:36 Pulse Ox 97 11/05/22 06:36 O2 Del Method Nasal Cannula 11/05/22 06:36 BMI result Body Mass Index 22.1 GEN: Well developed, no acute distress, alert, oriented HEENT: Normocephalic, atraumatic, normal external ears, nose appears normal, no oropharyngeal edema or exudates Eyes: Normal to appearance Neck: Supple, no lymphadenopathy Respiratory: Talks in complete sentences, no respiratory distress, clear to auscultation bilaterally Cardiovascular: Regular rate and rhythm, no murmurs rubs or gallops Abdomen: Soft, nontender, nondistended, no guarding, no rebound Back: No CVA tenderness Extremities: No clubbing cyanosis or edema Neurologic: No focal neurologic deficits, cranial nerves 2-12 intact, strength is 5/5 bilaterally Skin: No rash Course Course Course Narrative: The workup is complete. There is no evidence of COVID her laboratory analysis, chest x-ray is clear without any evidence pneumonia. Given patient's pulmonary history, concern for bacterial bronchitis. Will start patient on antibiotics and an oral steroid. Patient can follow up primary care provider in 3-5 days. For progressive symptoms, patient return for re-evaluation. Medical Decision Making Medical Decision Making [facility] Narrative: The patient presents with subjective fevers, chills, rhinorrhea, and cough concerning for a viral URI. The patient is otherwise well-appearing, breathing comfortably on RA, and does not show any clinical evidence of CAP, bacterial sinusitis, strep pharyngitis, deep space neck infection, or sepsis. Discussed strict return precautions and supportive care including hydration, rest, and OTC analgesics. ? Supportive care ? Close follow up with a PCP Differential Diagnosis Differential Diagnoses: The differential diagnosis associated with the presentation includes (Bronchitis, pneumonia, viral infection, COVID, influenza) Lab Data [facility] Lab Attestation statement: I reviewed the patient's lab results. Labs: Lab Results 11/05/22 Range/Units 06:42 COVID-19 (SAM) Negative (Negative) COVID-19 Clin Com See Note Independent Interpretation I performed an independent interpretation of an: Plain X-Ray (Chest: No acute cardiopulmonary disease) Prescription Management I considered prescription management with: Antibiotic Discharge Plan Discharge Clinical Impression: Acute bronchitis Patient Disposition: Home, Self-Care Instructions: Acute Bronchitis (ED) Prescriptions: New azithromycin 250 mg tablet 250 mg PO DAILY 5 Days Qty: 6 0RF Rx Instructions: take as directed prednisone 20 mg tablet 20 mg PO DAILY Qty: 5 0RF No Action ascorbic acid (vitamin C) 500 mg tablet 500 mg PO DAILY 90 Days Qty: 90 3RF clonazepam 0.5 mg tablet 0.5 mg PO BID PRN (Reason: anxiety) 30 Days Qty: 60 0RF cetirizine 10 mg tablet 10 mg PO DAILY 90 Days Qty: 90 1RF Artificial Tears(glycerin-peg) 1-0.3 % Drops 1 drp OPHTHALMIC (EYE) TID methenamine hippurate 1 gram tablet 1 g PO DAILY Rx Instructions: PT HELD WHILE ON ABX omeprazole 20 mg capsule,delayed release(DR/EC) 20 mg PO DAILY@0630 zolpidem 10 mg tablet 10 mg PO BEDTIME PRN (Reason: Sleep) atorvastatin 40 mg tablet 40 mg PO DAILY albuterol sulfate 90 mcg/actuation HFA aerosol inhaler 2 puff inhalation Q4H PRN (Reason: shortness of breath or wheezing) 30 Days Qty: 8.5 3RF cholecalciferol (vitamin D3) [Vitamin D3] 25 mcg (1,000 unit) capsule 25 mcg PO DAILY Qty: 30 3RF fluticasone propionate 110 mcg/actuation HFA aerosol inhaler 110 mcg inhalation BID 30 Days Qty: 12 3RF potassium chloride 10 mEq tablet extended release 10 meq PO DAILY Restasis 0.05 % dropperette 1 drp ophthalmic (eye) Q12H metoprolol tartrate 25 mg tablet 12.5 mg PO BID oxcarbazepine 300 mg tablet 300 mg PO BID Referrals: Petros Verduzco PA-C [Primary Care Provider] - 5 days Mook Hurd MD [Emergency Provider] -
[2022-11-05 09:23] VITALS: BP 142/76; PULSE 67; RESP 18; TEMP 36.2; O2SAT 99
== END 2022-11-05 09:29 | disposition home or self-care (01) ==
PROVIDERS: Emergency Provider Emergency Medicine; PCP Physician Assistant
DX: J20.9 Acute bronchitis, unspecified (principal); R06.02 Shortness of breath; Z20.822 Contact with and (suspected) exposure to COVID-19
CPT/HCPCS: 71046; 87635; 99283

== ENCOUNTER 2022-11-13 11:51 | Outpatient (REF) | payer MEDICARE, SELFPAY ==
[2022-11-13 12:01] LABS: MANUAL DIFF FLAG NO
[2022-11-13 13:51] LABS: Basophils Percent Auto 0.5 % (0-2); Eosinophils Absolute Auto 0.1 X10*3/uL (0.0-0.4); Eosinophils Percent Auto 0.8 % (0-4); Hematocrit 36.4 % (37.0-47.0); Hemoglobin 11.8 g/dl (12.0-16.0); Imm Gran Abs Auto 0.03 X10*3/uL (0.00-0.03); Imm Gran Pct Auto 0.4 % (0.0-0.4); Lymphocytes Absolute Auto 2.9 X10*3/uL (1.2-4.9); Lymphocytes Percent Auto 37.8 % (20-40); Mean Corpuscular HGB Conc 32.4 g/dl (31.0-35.0); Mean Corpuscular Hemoglobin 31.6 pg (27.0-33.0); Mean Corpuscular Volume 97.6 fL (80.0-98.0); Mean Platelet Volume 11.3 fL (9.4-12.3); Monocytes Absolute Auto 0.7 X10*3/uL (0.1-1.2); Monocytes Percent Auto 9.4 % (2-11); Neutrophils Percent Auto 51.1 % (45-73); Platelet Count 229 X10*3/uL (160-400); Red Blood Count 3.73 X10*6/uL (4.20-5.50); Red Cell Distribution Width 14.6 % (11.0-16.0); White Blood Count 7.7 X10*3/uL (4.8-10.8)
[2022-11-13 14:33] LABS: Anion Gap 10 (12-20); Blood Urea Nitrogen 20 mg/dL (9-16); Calcium 9.3 mg/dL (8.4-10.2); Carbon Dioxide 31 mmol/L (22-29); Chloride 107 mmol/L (96-108); Estimated Glomerular Filt Rate > 60; Glucose Random 85 mg/dL (60-115); Iron 87 mcg/dL (30-160); Percent Iron Saturation 39 % (15-50); Potassium 3.3 mmol/L (3.3-5.1); Sodium 145 mmol/L (135-145); Total Iron Binding Capacity 224 mcg/dL (228-428); Unsaturated Iron Binding 137 ug/dL
== END 2022-11-13 11:52 | disposition home or self-care (01) ==
LOC: HO.LAB 11:51
PROVIDERS: PCP Physician Assistant; Visit Provider Physician Assistant
DX: D50.9 Iron deficiency anemia, unspecified (principal); E87.6 Hypokalemia
CPT/HCPCS: 36415; 80048; 83540; 85025

== ENCOUNTER 2022-11-17 09:56 | Emergency (ER) | payer MEDICARE, SELFPAY ==
--- NOTE | ~2022-11-17 | XR_ITS ---
EXAMINATION: XR CHEST CLINICAL INFORMATION: SOB (shortness of breath) COMPARISON: Chest 11/05/2022 TECHNIQUE: 2 views of the chest were obtained. FINDINGS: There is no significant interval change. The lungs are clear. Inflation and lucencies in the upper lung zones are again evident, suggesting underlying chronic obstructive pulmonary disease. The cardiomediastinal silhouette is within normal limits. There are no pleural effusions. No acute osseous abnormality. XR/XR chest 2V IMPRESSION: No acute cardiopulmonary disease.
--- NOTE | 2022-11-17 10:01 | ECG_ITS ---
Test Reason : sob Blood Pressure : / mmHG Vent. Rate : 081 BPM Atrial Rate : 081 BPM P-R Int : 124 ms QRS Dur : 072 ms QT Int : 382 ms P-R-T Axes : 070 026 038 degrees QTc Int : 443 ms Normal sinus rhythm Normal ECG When compared with ECG of 17-MAR-2018 15:35, No significant change was found Referred By: Jessica Flanagan Electronically Signed By:JOSEE NICKERSON
[2022-11-17 10:04] VITALS: BP 155/84; PULSE 77; RESP 16; TEMP 37.1; O2SAT 98; BMI 22.8
--- NOTE | 2022-11-17 10:40 | ED_ITS ---
HPI - Chest Pain General Chief Complaint: Chest Pain Stated Complaint: SOB seen here recently Time Seen by Provider: 11/17/22 10:21 Source: patient Mode of arrival: ambulatory History of Present Illness HPI narrative: 67-year-old female who is a current everyday smoker and has a history of COPD and was recently diagnosed with bronchitis presents with concerns regarding increased sputum production of a yellowish nature, chills otherwise no GI or symptoms. Patient feels that she may have a repeat pneumonia or sepsis. Related Data Home Medications Medication Instructions Recorded Confirmed metoprolol tartrate 25 mg tablet 12.5 mg PO BID 02/09/20 10/10/22 oxcarbazepine 300 mg tablet 300 mg PO BID 02/09/20 10/10/22 cyclosporine 0.05 % eye drops in a 1 drp ophthalmic (eye) Q12H 02/10/21 10/10/22 dropperette (Restasis) atorvastatin 40 mg tablet 40 mg PO DAILY 06/23/22 10/10/22 methenamine hippurate 1 gram tablet 1 g PO DAILY 08/25/22 10/10/22 omeprazole 20 mg capsule,delayed 20 mg PO DAILY@0630 08/25/22 10/10/22 release propylene glycol 1 %-glycerin 0.3 1 drp ophthalmic (eye) TID 08/25/22 10/10/22 % eye drops (Artificial Tears (glycerin-peg)) zolpidem 10 mg tablet 10 mg PO BEDTIME PRN Sleep 10/11/22 10/11/22 potassium chloride 10 mEq 10 meq PO DAILY 10/28/22 tablet,extended release Previous Rx's Medication Instructions Recorded ascorbic acid (vitamin C) 500 mg 500 mg PO DAILY 90 days #90 tabs 12/16/20 tablet albuterol sulfate 90 mcg/actuation 2 puff inhalation Q4H PRN 06/23/22 aerosol inhaler shortness of breath or wheezing 30 days #8.5 grams cholecalciferol (vitamin D3) 25 25 mcg PO DAILY #30 caps 06/23/22 mcg (1,000 unit) capsule (Vitamin D3) fluticasone propionate 110 110 mcg inhalation BID 30 days #12 06/23/22 mcg/actuation HFA aerosol inhaler grams clonazepam 0.5 mg tablet 0.5 mg PO BID PRN anxiety 30 days 09/21/22 #60 tabs cetirizine 10 mg tablet 10 mg PO DAILY 90 days #90 tabs 09/25/22 azithromycin 250 mg tablet 250 mg PO DAILY 5 days #6 tabs 11/05/22 cephalexin 500 mg capsule 500 mg PO BID 5 days #10 caps 11/09/22 prednisone 20 mg tablet 20 mg PO DAILY 4 days #4 tabs 11/09/22 cefuroxime axetil 500 mg tablet 500 mg PO Q12H 5 days #10 tabs 11/17/22 prednisone 50 mg tablet 50 mg PO DAILY 4 days #4 tabs 11/17/22 Allergies Allergy/AdvReac Type Severity Reaction Status Date / Time lamotrigine [From Lamictal] Allergy Mild RASH Verified 11/05/22 06:36 doxycycline [DOXYCYCLINE] Allergy Unknown stomach Verified 11/05/22 06:36 upset nefazodone [From Serzone] Allergy Unknown unknown Verified 11/05/22 06:36 penicillin V AdvReac Unknown vomitting, Verified 11/05/22 06:36 nausea bupropion [From Wellbutrin] AdvReac dizziness, Verified 11/05/22 06:36 shakiness Environmental Allergy Unknown SEASONAL Uncoded 11/05/22 06:36 NASAL DRIP, ITCHY EYES TEA AdvReac Mild NAUSEA & Uncoded 11/05/22 06:36 VOMITING TUNA FISH AdvReac Mild NAUSEA & Uncoded 11/05/22 06:36 VOMITIING Review of Systems Review of Systems: Pertinent positives and negatives as stated in HPI PMFSH Past Medical History Source: nursing notes reviewed Medical History Bipolar 1 disorder Bladder cancer Bronchitis COPD (chronic obstructive pulmonary disease) Depression GERD (gastroesophageal reflux disease) HLD (hyperlipidemia) Insomnia Narrow angle glaucoma suspect PTSD (post-traumatic stress disorder) Sarcoid Tobacco dependence Surgical History History of bladder surgery History of dental surgery History of eye surgery Hx of cataract surgery Hx of hysterectomy Family History Family History Father Lung cancer Mother Seizure HTN (hypertension) Diabetes mellitus Pacemaker Son In good health Maternal Grandmother Ovarian cancer Other Mental problem Social History Social History Household Members: None Housing: Apartment Do you presently have visiting nurse or other home services: No Alcohol intake: never Patient Tobacco Use Status: Current someday Tobacco user Tobacco use type: Cigarette Cigarette Packs Per Day: 0.5 Cigarettes Per Day: 1 Smoked in Last 30 Days: Yes e-Cigarette/Vaping Use: Never Used Second Hand Smoke Exposure: No Advance Directives: No Advance Directives Information Provided: No service: No Current occupational status: disabled Sexual orientation: Straight/Heterosexual Gender identity: Female Cognitive needs: No Hearing needs: No Vision needs: Yes (glasses) Physical Exam Vital Signs: Vital Signs: Last Vital Signs Temp 98.1 F 11/17/22 13:13 Pulse 74 11/17/22 13:13 Resp 16 11/17/22 13:13 BP 112/59 L 11/17/22 13:13 Pulse Ox 99 11/17/22 13:13 O2 Del Method Room Air 11/17/22 13:13 BMI result Body Mass Index 22.8 VITAL SIGNS: Reviewed. GENERAL: Chronically ill, elderly, slender, in no acute distress. HEAD: Normocephalic/atraumatic EYES: PERRLA, EOMI EARS: Ext canals without abnormality NOSE: Nares patent bilateral OROPHARYNX: no oral lesions noted, posterior pharynx clear NECK: Supple, no adenopathy LUNGS: Normal breath sounds without tachypnea/wheeze/rhonchi/rales, no noted cough during examination. SpO2<98> CARDIOVASCULAR: Regular rate and rhythm without noted murmurs ABDOMEN: Soft, non-tender, non-distended with bowel sounds. MUSCULOSKELETAL: No tenderness, deformities, or effusions noted on gross inspection. EXTREMITIES: No cyanosis, clubbing or edema. SKIN: Inspection of the skin reveals no rashes NEUROLOGIC: Alert and oriented x 4. Strength and sensation to light touch were grossly intact x 4. Medical Decision Making Medical Decision Making MDM Narrative: 67-year-old female with history and clinical presentation and vital signs grossly within normal limits no evidence of tachypnea or hypoxia, DDX: Acute on chronic bronchitis, doubt chronic lung disease exacerbation, doubt pneumonia. I reviewed all investigations hematologic indices are grossly stable, patient is afebrile, there is no leukocytosis or left shift, anemia appears to be normocytic and chronic in nature there is no thrombocytopenia. ABG does not demonstrate any respiratory acidosis or hypercapnia. Chemistry indices are negative for CHANEL or electrolyte/liver enzyme derangements. Urine is contaminated and no evidence to suggest an acute UTI, once again patient is not febrile. Chest x-ray does not demonstrate any acute infiltrate and otherwise my interpretation is in agreement with radiology's impression. Troponin is undetectable, and EKG does not demonstrate any acute changes or ischemic morphology. It is my interpretation that patient is experiencing acute on chronic bronchitis exacerbation in conjunction with her COPD and will be placed on a course of steroids and antibiotics. Differential Diagnosis Differential Diagnoses: The differential diagnosis associated with the presentation includes Please see the discussion above Admission/Observation Consideration of admission/observation: Escalation of care including admission/observation considered Please see the discussion above Lab Data MDM Lab Attestation statement: I reviewed the patient's lab results. Please see the discussion above 11/17/22 12:38 11/17/22 12:38 Labs: Lab Results 11/17/22 11/17/22 11/17/22 Range/Units 11:21 11:21 12:38 WBC 7.5 (4.8-10.8) X10*3/uL RBC 3.75 L (4.20-5.50) X10*6/uL Hgb 11.8 L (12.0-16.0) g/dl Hct 36.7 L (37.0-47.0) % MCV 97.9 (80.0-98.0) fL MCH 31.5 (27.0-33.0) pg MCHC 32.2 (31.0-35.0) g/dl RDW 14.8 (11.0-16.0) % Plt Count 231 (160-400) X10*3/uL MPV 10.3 (9.4-12.3) fL Immature Gran % (Auto) 0.3 (0.0-0.4) % Neut % (Auto) 58.9 (45-73) % Lymph % (Auto) 30.1 (20-40) % [place] % (Auto) 8.1 (2-11) % Eos % (Auto) 2.1 (0-4) % Baso % (Auto) 0.5 (0-2) % Lymph # (Auto) 2.3 (1.2-4.9) X10*3/uL [place] # (Auto) 0.6 (0.1-1.2) X10*3/uL Eos # (Auto) 0.2 (0.0-0.4) X10*3/uL Baso # (Auto) 0.0 (0.0-0.2) X10*3/uL Abs Immat Gran (auto) 0.02 (0.00-0.03) X10*3/uL Absolute Neuts (auto) 4.4 (2.0-8.3) x10*3/uL Absolute Nucleated RBC 0.000 (0.0-0.012) X10*3/uL Nucleated RBC % (auto) 0.0 (0.0-0.2) /100WBC VBG pH (7.32-7.43) VBG pCO2 mmHg VBG pO2 mmHg VBG HCO3 (22-26) mmol/L VBG O2 Saturation % VBG Base Excess mmol/L Sodium (135-145) mmol/L Potassium (3.3-5.1) mmol/L Chloride (96-108) mmol/L Carbon Dioxide (22-29) mmol/L Anion Gap (12-20) BUN (9-16) mg/dL Creatinine (0.5-1.4) mg/dL Estim Creat Clear Calc Estimated GFR Random Glucose (60-115) mg/dL Calcium (8.4-10.2) mg/dL Total Bilirubin (0.0-1.0) mg/dL AST (5-31) U/L ALT (0-31) U/L Alkaline Phosphatase (39-117) U/L Troponin I High Sens (<3.5-17.0) ng/L Total Protein (6.5-8.0) g/dL Albumin (3.5-5.0) g/dL Urine Color Yellow Cancelled Urine Appearance Clear Cancelled Urine pH 7.0 Cancelled (5.0-9.0) Ur Specific [place] 1.010 Cancelled (1.005-1.025) Urine Protein Negative Cancelled (Neg-Trace) mg/dL Urine Glucose (UA) Negative Cancelled (Negative) mg/dL Urine Ketones Negative Cancelled (Negative) mg/dL Urine Blood Trace H Cancelled (Negative) Urine Nitrite Negative Cancelled (Negative) Ur Leukocyte Esterase Small (1+) H Cancelled (Negative) Urine RBC 6-10 H Cancelled (0-2) /HPF Urine WBC 21-50 H Cancelled (0-5) /HPF Urine WBC Clumps Cancelled Ur Squamous Epith Cells 3-5 Cancelled (0-2) /HPF Ur Transition Epith Cell Cancelled Ur Renal Epithelial Cell Cancelled Calcium Oxalate Crystal Cancelled Leucine Crystals Cancelled Cystine Crystals Cancelled Tyrosine Crystals Cancelled Other Crystals Cancelled Urine Bacteria None Seen Cancelled (None Seen) Urine Parasites Cancelled Bilirubin Casts Cancelled Epithelial Casts Cancelled Fatty Casts Cancelled Hyaline Casts 3-5 Cancelled (0-2) /LPF Granular Casts Cancelled Waxy Casts Cancelled Broad Casts Cancelled RBC Casts Cancelled WBC Casts Cancelled Other Casts Cancelled Urine Trichomonas Cancelled Urine Yeast Cancelled 11/17/22 11/17/22 11/17/22 Range/Units 12:38 12:38 12:43 WBC (4.8-10.8) X10*3/uL RBC (4.20-5.50) X10*6/uL Hgb (12.0-16.0) g/dl Hct (37.0-47.0) % MCV (80.0-98.0) fL MCH (27.0-33.0) pg MCHC (31.0-35.0) g/dl RDW (11.0-16.0) % Plt Count (160-400) X10*3/uL MPV (9.4-12.3) fL Immature Gran % (Auto) (0.0-0.4) % Neut % (Auto) (45-73) % Lymph % (Auto) (20-40) % [place] % (Auto) (2-11) % Eos % (Auto) (0-4) % Baso % (Auto) (0-2) % Lymph # (Auto) (1.2-4.9) X10*3/uL [place] # (Auto) (0.1-1.2) X10*3/uL Eos # (Auto) (0.0-0.4) X10*3/uL Baso # (Auto) (0.0-0.2) X10*3/uL Abs Immat Gran (auto) (0.00-0.03) X10*3/uL Absolute Neuts (auto) (2.0-8.3) x10*3/uL Absolute Nucleated RBC (0.0-0.012) X10*3/uL Nucleated RBC % (auto) (0.0-0.2) /100WBC VBG pH 7.42 (7.32-7.43) VBG pCO2 44 mmHg VBG pO2 85 mmHg VBG HCO3 29 H (22-26) mmol/L VBG O2 Saturation 99.0 % VBG Base Excess 4.6 mmol/L Sodium 145 (135-145) mmol/L Potassium 3.7 (3.3-5.1) mmol/L Chloride 109 H (96-108) mmol/L Carbon Dioxide 29 (22-29) mmol/L Anion Gap 11 L (12-20) BUN 17 H (9-16) mg/dL Creatinine 0.70 (0.5-1.4) mg/dL Estim Creat Clear Calc 65.4 Estimated GFR > 60 Random Glucose 135 H (60-115) mg/dL Calcium 9.3 (8.4-10.2) mg/dL Total Bilirubin 0.2 (0.0-1.0) mg/dL AST 14 (5-31) U/L ALT 9 (0-31) U/L Alkaline Phosphatase 68 (39-117) U/L Troponin I High Sens < 2.7 (<3.5-17.0) ng/L Total Protein 6.2 L (6.5-8.0) g/dL Albumin 3.7 (3.5-5.0) g/dL Urine Color Urine Appearance Urine pH (5.0-9.0) Ur Specific [place] (1.005-1.025) Urine Protein (Neg-Trace) mg/dL Urine Glucose (UA) (Negative) mg/dL Urine Ketones (Negative) mg/dL Urine Blood (Negative) Urine Nitrite (Negative) Ur Leukocyte Esterase (Negative) Urine RBC (0-2) /HPF Urine WBC (0-5) /HPF Urine WBC Clumps Ur Squamous Epith Cells (0-2) /HPF Ur Transition Epith Cell Ur Renal Epithelial Cell Calcium Oxalate Crystal Leucine Crystals Cystine Crystals Tyrosine Crystals Other Crystals Urine Bacteria (None Seen) Urine Parasites Bilirubin Casts Epithelial Casts Fatty Casts Hyaline Casts (0-2) /LPF Granular Casts Waxy Casts Broad Casts RBC Casts WBC Casts Other Casts Urine Trichomonas Urine Yeast Independent Interpretation I performed an independent interpretation of an: EKG Interpretation: And sinus rhythm, HR-81, no STEMI, MA/QRS/QTC is within normal limits. Discharge Plan Discharge Clinical Impression: Acute bronchitis with COPD Patient Disposition: Home, Self-Care Instructions: Acute Bronchitis (ED), COPD (Chronic Obstructive Pulmonary Disease) (ED) Additional Instructions: 1. Resume all home medications as prescribed. 2. Please complete the course of antibiotics and the short course of steroids as prescribed. 3. Follow-up with your primary care provider in the next 1-2 days. Return to the ER for any worsening symptoms. Prescriptions: New cefuroxime axetil 500 mg tablet 500 mg PO Q12H 5 Days Qty: 10 0RF prednisone 50 mg tablet 50 mg PO DAILY 4 Days Qty: 4 0RF No Action ascorbic acid (vitamin C) 500 mg tablet 500 mg PO DAILY 90 Days Qty: 90 3RF clonazepam 0.5 mg tablet 0.5 mg PO BID PRN (Reason: anxiety) 30 Days Qty: 60 0RF cetirizine 10 mg tablet 10 mg PO DAILY 90 Days Qty: 90 1RF cephalexin 500 mg capsule 500 mg PO BID 5 Days Qty: 10 0RF prednisone 20 mg tablet 20 mg PO DAILY 4 Days Qty: 4 0RF Artificial Tears(glycerin-peg) 1-0.3 % Drops 1 drp OPHTHALMIC (EYE) TID methenamine hippurate 1 gram tablet 1 g PO DAILY Rx Instructions: PT HELD WHILE ON ABX omeprazole 20 mg capsule,delayed release(DR/EC) 20 mg PO DAILY@0630 zolpidem 10 mg tablet 10 mg PO BEDTIME PRN (Reason: Sleep) azithromycin 250 mg tablet 250 mg PO DAILY 5 Days Qty: 6 0RF Rx Instructions: take as directed atorvastatin 40 mg tablet 40 mg PO DAILY albuterol sulfate 90 mcg/actuation HFA aerosol inhaler 2 puff inhalation Q4H PRN (Reason: shortness of breath or wheezing) 30 Days Qty: 8.5 3RF cholecalciferol (vitamin D3) [Vitamin D3] 25 mcg (1,000 unit) capsule 25 mcg PO DAILY Qty: 30 3RF fluticasone propionate 110 mcg/actuation HFA aerosol inhaler 110 mcg inhalation BID 30 Days Qty: 12 3RF potassium chloride 10 mEq tablet extended release 10 meq PO DAILY Restasis 0.05 % dropperette 1 drp ophthalmic (eye) Q12H metoprolol tartrate 25 mg tablet 12.5 mg PO BID oxcarbazepine 300 mg tablet 300 mg PO BID Referrals: Petros Verduzco PA-C [Primary Care Provider] -
--- NOTE | 2022-11-17 11:24 | PC.NURSE ---
pct attempted lab draw, to retry. pt reports only one attempt per staff member. in room eating crackers drinking juice on the phone. urine obtained. vss.
[2022-11-17 11:27] LABS: Appearance Urine Clear; Color Urine Yellow; Glucose Urine UA Negative (Negative); Leukocyte Esterase Urine Small (1+) (Negative); Nitrite Urine Negative (Negative); UMIC TRIGGER UACC YES; Urine Blood Trace (Negative); Urine Ketones Negative (Negative); Urine Protein Negative (Neg-Trace)
[2022-11-17 11:30] LABS: Bacteria Urine None Seen (None Seen); UACC Culture Trigger YES; WBC Urine 21-50 /HPF (0-5)
--- NOTE | 2022-11-17 11:37 | PC.NURSE ---
second attempt to draw blood in room, pt told pct it hurts it hurts, take it out .
[2022-11-17 12:45] LABS: MANUAL DIFF FLAG NO
[2022-11-17 12:46] LABS: Basophils Percent Auto 0.5 % (0-2); Eosinophils Absolute Auto 0.2 X10*3/uL (0.0-0.4); Eosinophils Percent Auto 2.1 % (0-4); Hematocrit 36.7 % (37.0-47.0); Hemoglobin 11.8 g/dl (12.0-16.0); Imm Gran Abs Auto 0.02 X10*3/uL (0.00-0.03); Imm Gran Pct Auto 0.3 % (0.0-0.4); Lymphocytes Absolute Auto 2.3 X10*3/uL (1.2-4.9); Lymphocytes Percent Auto 30.1 % (20-40); Mean Corpuscular HGB Conc 32.2 g/dl (31.0-35.0); Mean Corpuscular Hemoglobin 31.5 pg (27.0-33.0); Mean Corpuscular Volume 97.9 fL (80.0-98.0); Mean Platelet Volume 10.3 fL (9.4-12.3); Monocytes Absolute Auto 0.6 X10*3/uL (0.1-1.2); Monocytes Percent Auto 8.1 % (2-11); Neutrophils Absolute Auto 4.4 x10*3/uL (2.0-8.3); Neutrophils Percent Auto 58.9 % (45-73); Platelet Count 231 X10*3/uL (160-400); Red Blood Count 3.75 X10*6/uL (4.20-5.50); Red Cell Distribution Width 14.8 % (11.0-16.0); White Blood Count 7.5 X10*3/uL (4.8-10.8)
[2022-11-17 12:48] LABS: VBG Base Excess 4.6 mmol/L; VBG HCO3 29 mmol/L (22-26); VBG pCO2 44 mmHg; VBG pH 7.42 (7.32-7.43); VBG pO2 85 mmHg
[2022-11-17 12:48] LABS: Venous Blood Gas Refer to POC result
[2022-11-17 13:00] LABS: Alanine Aminotransferase 9 U/L (0-31); Albumin Level 3.7 g/dL (3.5-5.0); Alkaline Phosphatase 68 U/L (39-117); Anion Gap 11 (12-20); Aspartate Amino Transferase 14 U/L (5-31); Bilirubin Total 0.2 mg/dL (0.0-1.0); Blood Urea Nitrogen 17 mg/dL (9-16); Calcium 9.3 mg/dL (8.4-10.2); Carbon Dioxide 29 mmol/L (22-29); Chloride 109 mmol/L (96-108); Creatinine Clr Calc Pharmacy 65.4; Estimated Glomerular Filt Rate > 60; Glucose Random 135 mg/dL (60-115); Potassium 3.7 mmol/L (3.3-5.1); Sodium 145 mmol/L (135-145); Total Protein 6.2 g/dL (6.5-8.0)
[2022-11-17 13:13] VITALS: BP 112/59; PULSE 74; RESP 16; TEMP 36.7; O2SAT 99
[2022-11-17 13:32] LABS: Troponin-I High Sensitivity < 2.7 ng/L (<3.5-17.0)
[2022-11-17] MEDS: predniSONE 10 MG TABLET 50 MG PO (13:52)
== END 2022-11-17 13:58 | disposition home or self-care (01) ==
PROVIDERS: Emergency Provider Student in an Organized Health Care Education/Training Program; PCP Physician Assistant
DX: J44.1 Chronic obstructive pulmonary disease with (acute) exacerbation (principal); J20.9 Acute bronchitis, unspecified; R07.89 Other chest pain; R06.02 Shortness of breath; F17.210 Nicotine dependence, cigarettes, uncomplicated; Z71.6 Tobacco abuse counseling; Z79.899 Other long term (current) drug therapy
CPT/HCPCS: 36415; 71046; 80053; 81001; 82803; 84484; 85025; 87086; 87088; 87186; 93005; 99283; 99285

== ENCOUNTER 2022-11-19 14:31 | Outpatient (REF) | payer MEDICARE, SELFPAY ==
--- NOTE | 2022-11-19 15:28 | PFT_ITS ---
FLOWS: 1. FEV1 56% of predicted at 0.88 L. 2. FVC 98% of predicted at 2.00 L. 3. FEV1 to FVC ratio of 0.44. 4. No bronchodilator response. LUNG VOLUMES: 1. Total lung capacity 125% of predicted at 5.23 L. 2. Residual volume 189% of predicted at 3.32 L. 3. Slow vital capacity 66% of predicted at 1.90 L. 4. Expiratory reserve volume 101% of predicted at 0.73 L. 5. Diffusion capacity is severely decreased, diffusion capacity at just to be in moderately decreased after correction for alveolar ventilation. IMPRESSION: Moderate obstructive ventilatory defect with no bronchodilator response. Increased total lung capacity suggests hyperinflation. Increased residual volume suggests air trapping. Decreased diffusion capacity suggests emphysema. MD HENRRY Fagan/MODL / [phone]
== END 2022-11-19 14:32 | disposition home or self-care (01) ==
LOC: HO.RESP 14:31
PROVIDERS: PCP Physician Assistant; Visit Provider Physician Assistant
DX: R06.02 Shortness of breath (principal); F17.200 Nicotine dependence, unspecified, uncomplicated
CPT/HCPCS: 94010; 94729

== ENCOUNTER → 2022-11-19 15:28 | Outpatient (BNV) | payer MEDICARE, SELFPAY | PROVIDERS: PCP Physician Assistant; Visit Provider Internal Medicine Pulmonary Disease | DX: R06.02 Shortness of breath (principal) | CPT/HCPCS: 94060; 94727; 94729 ==

== ENCOUNTER 2022-11-26 11:51 | Outpatient (AMB) | payer MEDICARE, SELFPAY ==
--- NOTE | 2022-11-26 11:51 | A.OFFPC_ITS ---
Vital Signs 11/26/22 11:53 Height 5 ft 3 in Weight 128 lb 4 oz BMI 22.7 BP 110/62 Blood Pressure Location Lt brachial Position Sitting Pulse 80 Pulse Source Pulse Oximeter Pulse Oximetry (%) 98 Oxygen Delivery Method Room Air Intake Visit Reasons: [facility] [place] [facility] 11/17/22 SOB Intake Note: Patient is here to follow-up after a visit the emergency department at [facility] on 11/17/22. Requesting for lab and breath test results Gang Drill Operator Required: No Rig Supervisor: Not Required per policy Accompanied by: Self / Same As Patient Allergies lamotrigine [From Lamictal] Allergy (Mild, Verified 11/26/22 11:53) RASH doxycycline [DOXYCYCLINE] Allergy (Unknown, Verified 11/26/22 11:53) stomach upset nefazodone [From Serzone] Allergy (Unknown, Verified 11/26/22 11:53) unknown penicillin V Adverse Reaction (Unknown, Verified 11/26/22 11:53) vomitting, nausea bupropion [From Wellbutrin] Adverse Reaction (Verified 11/26/22 11:53) dizziness, shakiness Environmental Allergy (Unknown, Uncoded 11/05/22 06:36) SEASONAL NASAL DRIP, ITCHY EYES TEA Adverse Reaction (Mild, Uncoded 11/05/22 06:36) NAUSEA & VOMITING TUNA FISH Adverse Reaction (Mild, Uncoded 11/05/22 06:36) NAUSEA & VOMITIING Tobacco use date assessed: 11/26/22 Fall risk assessment: 2 + Falls in past year Last assessed Fall Risk: 11/26/22 Dental Screening Dental Screen Date: 11/26/22 Did you have a dental visit in the last 12 months?: No Did you have a dental problem in the last 6 months where you did not have access to dental care?: No Was dental information given to patient?: No HPI HPI Comments History of Present Illness Details 67-year-old female past medical history significant for GERD, generalized anxiety disorder, COPD and smoker. Patient Dax KAUR presents today for emergency room follow-up. Patient presented to [facility] Emergency Room on 11/17/22 following recently diagnosed with bronchitis and she developed increased yellow sputum production. Labs were unremarkable no signs of leukocytosis, chest x-ray unremarkable ABGs did not show any respiratory acidosis are hypercapnia. Patient was discharged home on steroids and antibiotics. Patient reports she thought this was a follow up for her anemia, Patient lab reviewed in pffice that her anemia remains stable hemoglobin 11.8/ 36.7. Patient reports her breathing has improved. Denies Fevers, chills, cough and sob. [facility] Medical History Bipolar 1 disorder Bladder cancer Bronchitis COPD (chronic obstructive pulmonary disease) Depression GERD (gastroesophageal reflux disease) HLD (hyperlipidemia) Insomnia Narrow angle glaucoma suspect PTSD (post-traumatic stress disorder) Sarcoid Tobacco dependence Surgical History History of dental surgery History of bladder surgery History of eye surgery Hx of hysterectomy Hx of cataract surgery Family History Father Lung cancer Mother Seizure HTN (hypertension) Diabetes mellitus Pacemaker Son In good health Maternal Grandmother Ovarian cancer Other Mental problem Social History (Updated 11/26/22 @ 12:00 by TAWNY Covarrubias) Household Members: None Housing: Apartment Do you presently have visiting nurse or other home services: No Alcohol intake: never Patient Tobacco Use Status: Current someday Tobacco user Tobacco use type: Cigarette Cigarette Packs Per Day: 0.5 Cigarettes Per Day: 6 e-Cigarette/Vaping Use: Never Used Second Hand Smoke Exposure: No service: No Current occupational status: disabled Sexual orientation: Straight/Heterosexual Gender identity: Female Cognitive needs: No Hearing needs: No Vision needs: Yes (glasses) Female Reproductive History Menstrual Age of Menarche: 13 Questionnaire Thrive Questionnaire Date Thrive assessed: 10/11/22 CAROLYN-7 AMB Questionnaire CAROLYN-7 Date CAROLYN - 7 assessed: 06/23/22 Source: Developed by Drs. Earnest Arvizu, Kyleigh Iglesias, Amandeep Ronquillo and colleagues, with an educational maurice from [employer]. Review of Systems Const Denies chills, Denies fatigue, Denies fever(s) and Denies poor appetite Eyes Denies no additional complaints ENT Reports Normal hearing present Card Denies chest pain, Denies syncope, Denies rapid heart rate and Denies dyspnea Resp Denies cough and Denies dyspnea GI Denies change in stool character, Denies constipation, Denies diarrhea, Denies nausea and Denies vomiting Denies urinary frequency, Denies dysuria and Denies urinary urgency Neuro Reports Normal hearing present, Denies confusion and Denies syncope Psych Denies confusion Endo Denies fatigue Physical exam (Primary Care) Vital Signs: Last Vital Signs Pulse 80 11/26/22 11:53 BP 110/62 11/26/22 11:53 Pulse Ox 98 11/26/22 11:53 Oxygen Delivery Method Room Air 11/26/22 11:53 BMI result Body Mass Index 22.7 Tobacco/Smoking Status: Tobacco use Status Tobacco use date assessed 11/26/22 11/26/22 12:02 Patient Tobacco Use Status Current someday Tobacco 11/26/22 12:02 Tobacco use type Cigarette 11/26/22 12:02 e-Cigarette/Vaping Use Never Used 11/26/22 12:02 Thrive Assessment: Date of Thrive Assessment Date Thrive assessed 10/11/22 11/26/22 12:02 Const General: No confusion Orientation/consciousness: No confusion HENMT Head: Yes normocephalic and Yes atraumatic Eyes Conjunctivae: conjunctivae normal Chest Chest palpation & inspection: normal inspection of the chest Resp Effort & Inspection: normal respiratory effort Auscultation: clear to auscultation bilaterally, no crackles, no rhonchi and no wheezes Cardio Rate: regular rate Rhythm: regular rhythm Heart sounds: S1 normal heart sound present and S2 normal heart sound present GI Inspection: Yes normal to inspection Neuro General: No confusion Cranial nerves: Yes Normal hearing present Extrem General: No edema Assessment and Plan Assessment & Plan (1) COPD (chronic obstructive pulmonary disease): Code(s): J44.9 - Chronic obstructive pulmonary disease, unspecified Qualifiers: COPD type: chronic bronchitis Chronic bronchitis type: simple Qualified Code(s): J41.0 - Simple chronic bronchitis Plan: continue on albuterol as needed. (2) Anemia: Code(s): D64.9 - Anemia, unspecified Qualifiers: Anemia type: other cause Other causes of anemia: other cause, not classified Qualified Code(s): D64.89 - Other specified anemias (3) Microcytic anemia: Code(s): D50.9 - Iron deficiency anemia, unspecified Plan: H/H stable. Plan Keep scheduled annual exam in 2 weeks Medications: Refilled cholecalciferol (vitamin D3) (Vitamin D3) 25 mcg PO DAILY 30 caps 3RF E78.5 - Hyperlipidemia, unspecified Coding Level of Care Code Est Pt Level 3 (89056) Diagnoses Simple chronic bronchitis J41.0 COPD type: chronic bronchitis Chronic bronchitis type: simple Anemia due to other cause, not classified D64.89 Anemia type: other cause Other causes of anemia: other cause, not classified Microcytic anemia D50.9
[2022-11-26 11:53] VITALS: BP 110/62; PULSE 80; O2SAT 98; BMI 22.7
== END 2022-11-26 12:13 | disposition home or self-care (01) ==
PROVIDERS: PCP Physician Assistant; Visit Provider Nurse Practitioner Family
DX: J41.0 Simple chronic bronchitis (principal); D64.89 Other specified anemias; D50.9 Iron deficiency anemia, unspecified
CPT/HCPCS: 99213

== ENCOUNTER 2022-12-15 14:05 | Outpatient (REF) | payer MEDICARE, OTHER, SELFPAY ==
--- NOTE | ~2022-12-15 | XR_ITS ---
EXAMINATION: XR CHEST CLINICAL INFORMATION: Pneumonia, unspecified organism Cough COMPARISON: Chest 11/17/2022 TECHNIQUE: 2 views of the chest were obtained. FINDINGS: The lungs are hyperinflated with associated blunting of the costophrenic angles. No acute focal consolidation. No significant abnormality is noted involving the heart, mediastinum, bony thorax or soft tissues. Calcification of the thoracic aorta is indicative of atherosclerotic disease. XR/XR chest 2V IMPRESSION: No acute disease.
[2022-12-15 15:08] LABS: Hemoglobin 13.5 g/dl (12.0-16.0); Mean Corpuscular HGB Conc 32.1 g/dl (31.0-35.0); Mean Corpuscular Hemoglobin 31.5 pg (27.0-33.0); Mean Corpuscular Volume 97.9 fL (80.0-98.0); Platelet Count 219 X10*3/uL (160-400); Red Blood Count 4.29 X10*6/uL (4.20-5.50); Red Cell Distribution Width 13.4 % (11.0-16.0); White Blood Count 6.2 X10*3/uL (4.8-10.8)
[2022-12-15 15:18] LABS: Iron 100 mcg/dL (30-160); Percent Iron Saturation 38 % (15-50); Total Iron Binding Capacity 263 mcg/dL (228-428); Unsaturated Iron Binding 163 ug/dL
== END 2022-12-15 14:06 | disposition home or self-care (01) ==
LOC: HO.XRAY 14:05
PROVIDERS: Absent Provider Physician Assistant; PCP Physician Assistant; Visit Provider Physician Assistant
DX: J18.9 Pneumonia, unspecified organism (principal); R06.02 Shortness of breath; D50.9 Iron deficiency anemia, unspecified
CPT/HCPCS: 36415; 71046; 83540; 85027

== ENCOUNTER 2022-12-18 10:15 | Outpatient (AMB) | payer MEDICARE, SELFPAY ==
[2022-12-18 10:16] VITALS: BP 120/72; PULSE 85; O2SAT 99; BMI 22.9
--- NOTE | 2022-12-18 10:16 | A.OFFPC_ITS ---
Vital Signs 12/18/22 10:16 Height 5 ft 3 in Weight 129 lb 0.8 oz BMI 22.9 BP 120/72 Blood Pressure Location Lt brachial Position Sitting Pulse 85 Pulse Source Pulse Oximeter Temp Source Skin Pulse Oximetry (%) 99 Oxygen Delivery Method Room Air Intake Visit Reasons: Annual Physical Intake Note: Patient is here today for a physical. Program Paraprofessional Required: No Allergies lamotrigine [From Lamictal] Allergy (Mild, Verified 12/18/22 10:48) RASH doxycycline [DOXYCYCLINE] Allergy (Unknown, Verified 12/18/22 10:48) stomach upset nefazodone [From Serzone] Allergy (Unknown, Verified 12/18/22 10:48) unknown penicillin V Adverse Reaction (Unknown, Verified 12/18/22 10:48) vomitting, nausea bupropion [From Wellbutrin] Adverse Reaction (Verified 12/18/22 10:48) dizziness, shakiness Environmental Allergy (Unknown, Uncoded 12/18/22 10:48) SEASONAL NASAL DRIP, ITCHY EYES TEA Adverse Reaction (Mild, Uncoded 12/18/22 10:48) NAUSEA & VOMITING TUNA FISH Adverse Reaction (Mild, Uncoded 12/18/22 10:48) NAUSEA & VOMITIING Medication List - Last Reconciled 12/18/22 by JELENA Reyes albuterol sulfate 90 mcg/actuation 2 puffs inhalation Q4H PRN 30 days ascorbic acid (vitamin C) 500 mg PO DAILY 90 days atorvastatin 40 mg PO DAILY cetirizine 10 mg PO DAILY 90 days cholecalciferol (vitamin D3) (Vitamin D3) 25 mcg PO DAILY cyclosporine 0.05% (Restasis) 1 drp ophthalmic (eye) Q12H ferrous sulfate 325 mg PO DAILY 30 days fluticasone propionate 110 mcg/actuation 110 mcg inhalation BID 30 days methenamine hippurate 1 g PO DAILY metoprolol tartrate 12.5 mg PO BID omeprazole 20 mg PO DAILY@0630 oxcarbazepine 300 mg PO BID propylene glycol-glycerin 1-0.3 % (Artificial Tears (glycerin-peg)) 1 drp ophthalmic (eye) TID Tobacco use date assessed: 12/18/22 Fall risk assessment: No Falls in past year Last assessed Fall Risk: 12/18/22 Dental Screening Dental Screen Date: 12/18/22 Did you have a dental visit in the last 12 months?: No Did you have a dental problem in the last 6 months where you did not have access to dental care?: No HPI Annual Physical HPI Details Patient is a 67-year-old female who presents today for physical exam. Patient of VINCENT Verduzco. medical history significant for smoker-reports smoking 8 cigarettes per day-also uses lozenges for smoking cessation-reports she has CT scan last year in [place] which was normal-will refer for low-dose chest CT scan, anxiety, GERD, anemia, depression-followed by Psychiatry, history of bladder cancer - does self catheterization - followed by [facility]-will call for an appointment, hyperlipidemia. Today we discussed patient's need for colon cancer screening, bone density screening, mammogram, and tetanus vaccine. Patient will call for woman's exam to [place] [facility]. Patient also will call for an eye exam. Patient denies chest pain, reports intermittent shortness of breath with activity since being sick with COVID last year, she has requested refill on her inhaler. [facility] Medical History (Updated 12/18/22 @ 12:01 by JELENA Reyes) HLD (hyperlipidemia) Tobacco dependence GERD (gastroesophageal reflux disease) Bronchitis Narrow angle glaucoma suspect Sarcoid COPD (chronic obstructive pulmonary disease) Insomnia Depression PTSD (post-traumatic stress disorder) Bipolar 1 disorder Bladder cancer Surgical History History of dental surgery History of bladder surgery History of eye surgery Hx of hysterectomy Hx of cataract surgery Family History Father Lung cancer Mother Seizure HTN (hypertension) Diabetes mellitus Pacemaker Son In good health Maternal Grandmother Ovarian cancer Other Mental problem Social History Household Members: None Housing: Apartment Do you presently have visiting nurse or other home services: No Alcohol intake: never Patient Tobacco Use Status: Current someday Tobacco user Tobacco use type: Cigarette Cigarette Packs Per Day: 0.5 Cigarettes Per Day: 6 e-Cigarette/Vaping Use: Never Used Second Hand Smoke Exposure: No service: No Current occupational status: disabled Sexual orientation: Straight/Heterosexual Gender identity: Female Cognitive needs: No Hearing needs: No Vision needs: Yes (glasses) Female Reproductive History Menstrual Age of Menarche: 13 Questionnaire PHQ-9 Over the last 2 weeks, how often have you been bothered by any of the following problems? 1. Little interest or pleasure in doing things: nearly every day 2. Feeling down, depressed, or hopeless: nearly every day 3. Trouble falling or staying asleep, or sleeping too much: nearly every day 4. Feeling tired or having little energy: nearly every day 5. Poor appetite or overeating: nearly every day 6. Feeling bad about yourself - or that you are a failure or have let yourself or your family down: nearly every day 7. Trouble concentrating on things, such as reading the newspaper or watching television: nearly every day 8. Moving or speaking so slowly that other people could have noticed. Or the opposite - being so fidgety or restless that you have been moving around a lot more than usual: nearly every day 9. Thoughts that you would be better off or of hurting yourself in some way: not at all Total score: 24 Depression Screening Interpretation: Positive Depression Screening Follow-up: In treatment 67967 - PHQ-9 Billing: Yes Source: Developed by Drs. Earnest Arvizu, Kyleigh Iglesias, Amandeep Ronquillo and colleagues, with an educational maurice from [employer]. Thrive Questionnaire Date Thrive assessed: 10/11/22 I am a: Patient What is your living situation today?: I have a steady place to live Within the past 12 months, did the food you bought not last and you didn't have the money to get more?: Never true Within the past 12 months, did you worry whether your food would run out before you got money to buy more?: Never true Currently or been in a relationship where the following occur: no concerns reported AUDIT C Alcohol Use Questionnaire (AUDIT-C) 1. How often do you have a drink containing alcohol?: Monthly or less 2. How many drinks containing alcohol do you have on a typical day when you are drinking?: 1 or 2 3. How often do you have six or more drinks on one occasion?: Never Total Score: 1 Score Reviewed/Action Taken: No CAROLYN-7 AMB Questionnaire CAROLYN-7 Date CAROLYN - 7 assessed: 06/23/22 Feeling nervous, anxious, or on edge: 1 = Several days Not being able to stop or control worryin = Several days Worrying too much about different things: 1 = Several days Trouble relaxin = Several days Being so restless that it is hard to sit still: 1 = Several days Becoming easily annoyed or irritable: 1 = Several days Feeling afraid as if something awful might happen: 0 = Not at all Total CAROLYN-7 score (0-4 normal; 5-9 mild; 10-14 moderate; 15-21 severe): 6 Source: Developed by Drs. Earnest Arvizu, Kyleigh Iglesias, Amandeep Ronquillo and colleagues, with an educational maurice from [employer]. CAROLYN-7 Assessment Billing CAROLYN-7 Assessment Tool: CAROLYN-7 Assessment 48732 Review of Systems Const Denies body aches, Denies chills, Denies fever(s) and Denies headache(s) Eyes Denies change in vision ENT Denies dizziness, Denies otalgia, Denies headache(s), Denies nasal discharge, Denies sinus pain and Denies sore throat Card Denies chest pain, Denies edema, Denies lightheadedness, Denies dyspnea and Reports dyspnea on exertion Resp Denies cough, Denies dyspnea, Reports dyspnea on exertion and Denies wheezing GI Denies constipation, Denies diarrhea, Denies nausea and Denies vomiting Denies dysuria Musc Denies myalgias Skin/Breast Denies rash Neuro Denies dizziness and Denies headache(s) Aller/Immun Denies wheezing Physical exam (Primary Care) Vital Signs: Last Vital Signs Pulse 85 12/18/22 10:16 BP 120/72 12/18/22 10:16 Pulse Ox 99 12/18/22 10:16 Oxygen Delivery Method Room Air 12/18/22 10:16 BMI result Body Mass Index 22.9 Tobacco/Smoking Status: Tobacco use Status Tobacco use date assessed 12/18/22 12/18/22 10:17 Patient Tobacco Use Status Current someday Tobacco 12/18/22 10:17 Tobacco use type Cigarette 12/18/22 10:17 e-Cigarette/Vaping Use Never Used 12/18/22 10:17 PHQ-9: PHQ-9 Score PHQ-9: Total score 24 12/18/22 11:06 Depression Screening Interpretation: Positive Depression Screening Follow-up: In treatment Thrive Assessment: Date of Thrive Assessment Date Thrive assessed 10/11/22 12/18/22 10:17 Currently or been in a relationship where the following occur: no concerns reported Const General: cooperative and no acute distress Orientation/consciousness: patient oriented x3 HENMT Other: Bilateral TM partially obstructed by cerumen, visualized TMs normal Head: Yes normocephalic and Yes atraumatic Face and sinus: Yes sinuses nontender Mouth: oropharynx normal and moist mucous membranes Throat: Yes posterior oropharynx normal Eyes General: appearance normal, both eyes and all related structures Pupils: Equal, round and reactive pupils present EOM: EOMs intact bilaterally Neck Neck: Yes normal visual inspection, Yes full ROM and Yes no lymphadenopathy Thyroid: Thyroid normal Resp Effort & Inspection: normal respiratory effort and able to speak in complete sentences Auscultation: clear to auscultation bilaterally, no crackles, no rales, no rhonchi and no wheezes Cardio Rate: regular rate Rhythm: regular rhythm Heart sounds: S1 normal heart sound present, S2 normal heart sound present and no murmurs GI Palpation (GI): Soft to palpation, not firm, nontender, no guarding, not rigid and no hepatosplenomegaly Auscultation: normal bowel sounds General: No CVA tenderness Back/Spine/Pelvis Back: No CVA tenderness Skin General skin exam: no rashes or lesions noted Neuro General: patient oriented x3 Cranial nerves: Yes Equal, round and reactive pupils present Gait exam (Neuro): Normal gait present Extrem General: Yes full ROM and No edema Immunizations tetanus-diphtheria toxoids-Td 2 Lf unit-2 Lf unit/0.5 mL IM suspension Performing Provider: JELENA Reyes Performing Location: [facility] Administered by: TAWNY Zapata on 12/18/22 11:06 Dose Route Admin Location Dispensed Lot Number Expiration Date NDC Field Worker 0.5 mL IM Left Deltoid 0.5 mL [id number] 07/26/23 [address]-6 [employer] VIS Given Date VIS Provided VIS Publication Date 12/18/22 Single Vaccine 20 Eligibility Eligibility Date Funding Source Not [facility] Eligible 12/18/22 State funds Assessment and Plan Assessment & Plan (1) Colon cancer screening: Code(s): Z12.11 - Encounter for screening for malignant neoplasm of colon (2) HLD (hyperlipidemia): Code(s): E78.5 - Hyperlipidemia, unspecified Qualifiers: Hyperlipidemia type: mixed hyperlipidemia Qualified Code(s): E78.2 - Mixed hyperlipidemia Plan: Continue atorvastatin Low-cholesterol diet Will check lipid panel (3) Post-menopausal: Code(s): Z78.0 - Asymptomatic menopausal state (4) Bladder cancer: Code(s): C67.9 - Malignant neoplasm of bladder, unspecified Plan: Continue to follow-up with [facility], patient reports that she does self catheterization, patient will call for an appointment (5) MDD (major depressive disorder), recurrent episode, moderate: Code(s): F33.1 - Major depressive disorder, recurrent, moderate Plan: Continue to follow-up with Psychiatry Continue current treatment as prescribed by Psychiatry (6) Screening for breast cancer: Code(s): Z12.39 - Encounter for other screening for malignant neoplasm of breast (7) Smoker: Code(s): F17.200 - Nicotine dependence, unspecified, uncomplicated Plan: Encouraged smoking sensation Will refer for low-dose chest CT scan (8) COPD (chronic obstructive pulmonary disease): Code(s): J44.9 - Chronic obstructive pulmonary disease, unspecified Qualifiers: COPD type: chronic bronchitis Chronic bronchitis type: simple Qualified Code(s): J41.0 - Simple chronic bronchitis Plan: Continue current inhalers as prescribed (9) Adult general medical exam: Code(s): Z00.00 - Encounter for general adult medical examination without abnormal findings Plan Keep appointment with PCP as scheduled or follow-up sooner as needed Orders: Orders XR DEXA axial skeleton Today Z78.0 - Asymptomatic menopausal state MM tomosynthesis screening BI Today Z12.31 - Encounter for screening mammogram for malignant neoplasm of breast Lipid Panel Today E78.5 - Hyperlipidemia, unspecified Td State Immunization Today Z23 - Encounter for immunization Referrals Gastroenterology Referral Z12.11 - Encounter for screening for malignant neoplasm of colon Thoracic Surgery Referral F17.200 - Nicotine dependence, unspecified, uncomplicated Medications: Refilled cetirizine 10 mg PO DAILY 90 days 90 tabs 1RF J41.0 - Simple chronic bronchitis albuterol sulfate 90 mcg/actuation 2 puffs inhalation Q4H 30 days PRN 8.5 grams 3RF shortness of breath or wheezing J41.0 - Simple chronic bronchitis Coding Level of Care Code Est Pt Prev Care >65y(67143) Diagnoses Colon cancer screening Z12.11 Mixed hyperlipidemia E78.2 Hyperlipidemia type: mixed hyperlipidemia Post-menopausal Z78.0 Bladder cancer C67.9 MDD (major depressive disorder), recurrent episode, moderate F33.1 Screening for breast cancer Z12.39 Smoker F17.200 Simple chronic bronchitis J41.0 COPD type: chronic bronchitis Chronic bronchitis type: simple Adult general medical exam Z00.00 Additional Codes CAROLYN-7 Assessment Billing - CAROLYN-7 Assessment Tool: CAROLYN-7 Assessment [id number] ([id number])
== END 2022-12-18 11:15 | disposition home or self-care (01) ==
PROVIDERS: PCP Physician Assistant; Visit Provider Nurse Practitioner Family
DX: Z23 Encounter for immunization (principal); Z00.00 Encounter for general adult medical examination without abnormal findings; C67.9 Malignant neoplasm of bladder, unspecified; F33.1 Major depressive disorder, recurrent, moderate; J41.0 Simple chronic bronchitis
CPT/HCPCS: 90471; 90714; 96127; 99397

== ENCOUNTER 2022-12-22 08:06 | Outpatient (AMB) | payer MEDICARE, SELFPAY ==
--- NOTE | 2022-12-22 08:07 | A.OFFPC_ITS ---
Intake Visit Reasons: discuss blood work and chest xray Allergies lamotrigine [From Lamictal] Allergy (Mild, Verified 12/22/22 08:11) RASH doxycycline [DOXYCYCLINE] Allergy (Unknown, Verified 12/22/22 08:11) stomach upset nefazodone [From Serzone] Allergy (Unknown, Verified 12/22/22 08:11) unknown penicillin V Adverse Reaction (Unknown, Verified 12/22/22 08:11) vomitting, nausea bupropion [From Wellbutrin] Adverse Reaction (Verified 12/22/22 08:11) dizziness, shakiness Environmental Allergy (Unknown, Uncoded 12/22/22 08:07) SEASONAL NASAL DRIP, ITCHY EYES TEA Adverse Reaction (Mild, Uncoded 12/22/22 08:07) NAUSEA & VOMITING TUNA FISH Adverse Reaction (Mild, Uncoded 12/22/22 08:07) NAUSEA & VOMITIING Medication List - Last Reconciled 12/22/22 by Petros Verduzco PA-C albuterol sulfate 90 mcg/actuation 2 puffs inhalation Q4H PRN 30 days ascorbic acid (vitamin C) 500 mg PO DAILY 90 days atorvastatin 40 mg PO DAILY cetirizine 10 mg PO DAILY 90 days cholecalciferol (vitamin D3) (Vitamin D3) 25 mcg PO DAILY cyclosporine 0.05% (Restasis) 1 drp ophthalmic (eye) Q12H ferrous sulfate 325 mg PO DAILY 30 days fluticasone propionate 110 mcg/actuation 110 mcg inhalation BID 30 days methenamine hippurate 1 g PO DAILY metoprolol tartrate 12.5 mg PO BID omeprazole 20 mg PO DAILY@0630 oxcarbazepine 300 mg PO BID propylene glycol-glycerin 1-0.3 % (Artificial Tears (glycerin-peg)) 1 drp ophthalmic (eye) TID Tobacco use date assessed: 12/18/22 Fall risk assessment: No Falls in past year Last assessed Fall Risk: 12/22/22 Dental Screening Dental Screen Date: 12/22/22 Did you have a dental visit in the last 12 months?: No Did you have a dental problem in the last 6 months where you did not have access to dental care?: No Was dental information given to patient?: No HPI discuss blood work and chest xray HPI Details Patient is a 67-year-old female being evaluated today via telephone. ?Patient's past medical history significant for generalized anxiety disorder, history of bladder cancer COPD, tobacco use disorder, .. History of bladder neoplasm:? Recently admitted to [facility] for acute pyelonephritis. Is followed by urologist and is seen by late he clinic.? She does self catheterize.? Unfortunately continues to smoke. She has missed multiple appointments with [facility] for surveillance cystoscopy. .. Smoking/ COPD:? Unfortunately continues to smoke.? Recent x-ray showing some evidence of hyperinflation consistent with COPD. Did have a recent ER visit for acute bronchitis. She reports her depression and anxiety are both triggers to keeping her smoking. Reviewed patient's labs noted improved CBC with the addition of starting iron supplementation. Anemia likely secondary to her recurrent pyelonephritis in UTIs. [facility] Medical History HLD (hyperlipidemia) Tobacco dependence GERD (gastroesophageal reflux disease) Bronchitis Narrow angle glaucoma suspect Sarcoid COPD (chronic obstructive pulmonary disease) Insomnia Depression PTSD (post-traumatic stress disorder) Bipolar 1 disorder Bladder cancer Surgical History History of dental surgery History of bladder surgery History of eye surgery Hx of hysterectomy Hx of cataract surgery Family History Father Lung cancer Mother Seizure HTN (hypertension) Diabetes mellitus Pacemaker Son In good health Maternal Grandmother Ovarian cancer Other Mental problem Social History Household Members: None Housing: Apartment Do you presently have visiting nurse or other home services: No Alcohol intake: never Patient Tobacco Use Status: Current someday Tobacco user Tobacco use type: Cigarette Cigarette Packs Per Day: 0.5 Cigarettes Per Day: 6 e-Cigarette/Vaping Use: Never Used Second Hand Smoke Exposure: No service: No Current occupational status: disabled Sexual orientation: Straight/Heterosexual Gender identity: Female Cognitive needs: No Hearing needs: No Vision needs: Yes (glasses) Female Reproductive History Menstrual Age of Menarche: 13 Questionnaire PHQ-9 Over the last 2 weeks, how often have you been bothered by any of the following problems? 1. Little interest or pleasure in doing things: nearly every day 2. Feeling down, depressed, or hopeless: nearly every day 3. Trouble falling or staying asleep, or sleeping too much: nearly every day 4. Feeling tired or having little energy: nearly every day 5. Poor appetite or overeating: nearly every day 6. Feeling bad about yourself - or that you are a failure or have let yourself or your family down: nearly every day 7. Trouble concentrating on things, such as reading the newspaper or watching television: nearly every day 8. Moving or speaking so slowly that other people could have noticed. Or the opposite - being so fidgety or restless that you have been moving around a lot more than usual: nearly every day 9. Thoughts that you would be better off or of hurting yourself in some way: not at all Total score: 24 Depression Screening Interpretation: Positive Depression Screening Follow-up: In treatment 16727 - PHQ-9 Billing: Yes Source: Developed by Drs. Earnest Arvizu, Kyleigh Iglesias, Amandeep Ronquillo and colleagues, with an educational maurice from [employer]. Thrive Questionnaire Date Thrive assessed: 10/11/22 AUDIT C Alcohol Use Questionnaire (AUDIT-C) 1. How often do you have a drink containing alcohol?: Monthly or less 2. How many drinks containing alcohol do you have on a typical day when you are drinking?: 1 or 2 3. How often do you have six or more drinks on one occasion?: Never Total Score: 1 Score Reviewed/Action Taken: No CAROLYN-7 AMB Questionnaire CAROLYN-7 Date CAROLYN - 7 assessed: 06/23/22 Source: Developed by Drs. Earnest Arvizu, Kyleigh Iglesias, Amandeep Ronquillo and colleagues, with an educational maurice from [employer]. Review of Systems Const Denies headache(s) Eyes Denies loss of vision ENT Denies vertigo, Denies dizziness, Denies headache(s) and Denies sore throat Card Denies chest pain, Denies leg edema and Denies lightheadedness Resp Denies cough, Denies hemoptysis and Denies wheezing GI Denies abdominal pain, Denies melena, Denies constipation, Denies diarrhea and Denies vomiting Denies urinary frequency, Denies dysuria and Denies urinary urgency Musc Denies arthralgias, Denies joint swelling, Denies numbness and Denies tingling Neuro Denies behavioral changes, Denies vertigo, Denies dizziness, Denies headache(s), Denies loss of vision, Denies memory loss, Denies numbness and Denies tingling Psych Denies anxiety, Denies behavioral changes, Denies depression, Denies memory loss and Denies panic attacks Kirk/Lymph Denies easy bleeding and Denies easy bruising Aller/Immun Denies wheezing Physical exam (Primary Care) Tobacco/Smoking Status: Tobacco use Status Tobacco use date assessed 12/18/22 12/22/22 08:08 Patient Tobacco Use Status Current someday Tobacco 12/22/22 08:08 Tobacco use type Cigarette 12/22/22 08:08 e-Cigarette/Vaping Use Never Used 12/22/22 08:08 Are you ready to quit: No Tobacco cessation counseling provided: Yes Relapse Prevention: discussed the importance of a supportive environment, discussed negative mood or depression after quitting, weight gain after smoking is common and discussed dietary, exercise and/or lifestyle changes Number of minutes spent counselin CPT code: 38716 - 4-10 Minutes PHQ-9: PHQ-9 Score PHQ-9: Total score 24 12/22/22 08:08 Depression Screening Interpretation: Positive Depression Screening Follow-up: In treatment Thrive Assessment: Date of Thrive Assessment Date Thrive assessed 10/11/22 12/22/22 08:08 Telehealth Telehealth Location of provider rendering services: practice address Location of patient: address on file Patient Identification confirmed using: Name, : Yes Telehealth method: voice only Patient verbally consented to treatment: Yes Patient verbally consented to billing insurance company: Yes Patient informed of any privacy concerns related to visit: Yes Minutes spent on Phone/Video with Pt.: 10 Assessment and Plan Assessment & Plan (1) COPD (chronic obstructive pulmonary disease): Code(s): J44.9 - Chronic obstructive pulmonary disease, unspecified Qualifiers: COPD type: chronic bronchitis Chronic bronchitis type: simple Qualified Code(s): J41.0 - Simple chronic bronchitis Plan: Unfortunately patient continues to smoke. She does understand she needs to quit smoking. Offered her nicotine replacement though she declines at this time. She has been working on reducing her smoking. Chest x-rays recently showing evidence of COPD. She does use albuterol and Flovent inhaler (2) Microcytic anemia: Code(s): D50.9 - Iron deficiency anemia, unspecified Plan: Recently found to be anemic and was started on iron supplementation which has improved her RBCs. Will continue iron supplementation for the next few months and recheck labs. Orders: Orders Comprehensive [place]. Panel Fast 3 Months E78.2 - Mixed hyperlipidemia Complete Blood Count no Diff 3 Months D50.9 - Iron deficiency anemia, unspecified IRON PROFILE 3 Months D50.9 - Iron deficiency anemia, unspecified Lipid Panel 3 Months E78.2 - Mixed hyperlipidemia Medications: Changed From ferrous sulfate 325 mg PO DAILY 30 days 30 tabs 1RF D50.9 - Iron deficiency anemia, unspecified To ferrous sulfate 325 mg PO DAILY 90 days 90 tabs 0RF D50.9 - Iron deficiency anemia, unspecified Refilled albuterol sulfate 90 mcg/actuation 2 puffs inhalation Q4H 30 days PRN 8.5 grams 3RF shortness of breath or wheezing J41.0 - Simple chronic bronchitis Coding Level of Care Code Tele Est Pt Level 4 (28867) Diagnoses Simple chronic bronchitis J41.0 COPD type: chronic bronchitis Chronic bronchitis type: simple Microcytic anemia D50.9 Additional Codes Vital Signs *Quality* - CPT code: 90805 - 4-10 Minutes ([id number])
--- OUTSIDE RECORDS SUMMARY | 2022-12-22 08:08 | XMS_ITS | Patient Health Record ---
Author Name Unknown Organization [facility] Address [address], [place] [id number] Care Team Providers Care Certified Alcohol Drug Counselor Name Role Phone Housing, Search Primary Care Provider Moris Chen Unavailable [phone] REASON FOR REFERRAL No Information SOCIAL HISTORY Sex Assigned At : Social History Observation Description Sex Assigned At Unknown PLAN OF TREATMENT No Information Insurance Providers Payer Name Payer Address Payer Phone Subscriber Number Group Number Insured Name Patient Relationship to Insured Coverage Start Date Coverage End Date [facility] Plan [address] [address] [place] [address] [id number] Yoko Gallardo Self - patient is the insured
== END 2022-12-22 08:57 | disposition home or self-care (01) ==
LOC: HO.HMGH 08:06
PROVIDERS: PCP Physician Assistant; Visit Provider Physician Assistant
DX: J41.0 Simple chronic bronchitis (principal); D50.9 Iron deficiency anemia, unspecified
CPT/HCPCS: G2252

== ENCOUNTER 2023-01-25 13:15 | Outpatient (REF) | payer MEDICARE, SELFPAY ==
[2023-01-25 14:11] LABS: Anion Gap 13 (12-20); Blood Urea Nitrogen 14 mg/dL (9-16); Calcium 9.6 mg/dL (8.4-10.2); Carbon Dioxide 27 mmol/L (22-29); Chloride 105 mmol/L (96-108); Estimated Glomerular Filt Rate > 60; Glucose Random 82 mg/dL (60-115); Potassium 3.7 mmol/L (3.3-5.1); Sodium 141 mmol/L (135-145)
== END 2023-01-25 13:16 | disposition home or self-care (01) ==
LOC: HO.LAB 13:15
PROVIDERS: PCP Physician Assistant; Visit Provider Physician Assistant
DX: Z01.812 Encounter for preprocedural laboratory examination (principal)
CPT/HCPCS: 36415; 80048

== ENCOUNTER 2023-02-01 13:37 | Outpatient (REF) | payer MEDICARE, OTHER, SELFPAY ==
--- NOTE | ~2023-02-01 | CT_ITS ---
EXAMINATION: CT ABDOMEN AND PELVIS WITH CONTRAST CLINICAL INFORMATION: Malignant neoplasm of bladder-this is a recent diagnosis obtained at the [facility] according to the patient's provider. Patient has undergone bladder augmentation in 2000 according to provider. COMPARISON: CT abdomen and pelvis 08/25/2022. TECHNIQUE: Multidetector volumetric images were obtained from the superior aspect of the liver through the pubic symphysis following administration of 60 mL of Omnipaque 350 intravenous contrast. Sagittal and coronal reformatted images were obtained on the technologist's workstation. It should be noted that there is no excreted contrast seen on the CT scan and technologists informed me that the entirety of the contrast media infiltrated in the right arm. The exam is essentially performed without contrast. Oral contrast: No This CT examination was performed using dose optimization techniques as appropriate, variously including the following: *Automated exposure control *Adjustment of mA and/or kV according to patient size (this includes techniques or standardized protocols for targeted exams where dose is matched to indication/reason for exam; i.e. extremities or head) *Use of iterative reconstruction technique DLP: 215 mGy-cm FINDINGS: LUNG BASES: The visualized lung bases are unremarkable. LIVER, GALLBLADDER, AND BILIARY TREE: The liver is normal in size, shape, and attenuation. No focal hepatic lesion or biliary ductal dilatation is present. The gallbladder is unremarkable with no evidence of radiopaque gallstones, gallbladder wall thickening, or obvious pericholecystic inflammatory changes. PANCREAS: Unremarkable. SPLEEN: Unremarkable. ADRENAL GLANDS: Unremarkable. KIDNEYS AND URETERS: The kidneys are normal in size, shape, and attenuation. Again seen is a nonobstructing crescentic 1.3 cm stone at the upper pole of the left kidney. Some punctate calcifications are noted in the upper pole of the right kidney. Of note, the previous gas which was seen in the right renal collecting system and bladder is no longer present indicating resolution of the previously emphysematous cystitis/pyelitis. There is no hydronephrosis or hydroureter seen. No perinephric stranding. BLADDER: The bladder is deviated to the right by bowel in the left hemipelvis. There is a structure extending from the dome of the bladder up to the liver, related to bladder augmentation. GASTROINTESTINAL TRACT: Patient appears to be status post a right hemicolectomy. There is a transverse colon anastomosis seen that related to the patient's urologic history. Please correlate with past surgical notes. The small and large bowel are otherwise unremarkable. ABDOMINAL WALL: No significant hernia is appreciated. LYMPH NODES: No retroperitoneal lymphadenopathy. VASCULAR: Calcific plaque present in the aorta and iliofemoral vessels without aneurysm. PELVIC VISCERA: The uterus is not seen. Surgical clips are present in the left pelvis. An abnormal adnexal mass is not seen. OSSEOUS STRUCTURES: Unremarkable. CT/CT abdomen pelvis w IV con IMPRESSION: 1. The exam is suboptimal as IV contrast was not utilized. Would recommend a repeat study when adequate IV access is established and a CT urogram should be performed. 2. No evidence of metastatic disease in the abdomen or pelvis. 3. Resolution of previously seen gas in the right renal collecting system and bladder indicating resolution of previously seen emphysematous cystitis/pyelitis. 4. Other incidental findings as described above bladder augmentation. Please correlate with the patient's operative history and notes. Given the lack of IV contrast, the bladder is not adequately evaluated. Fleischner guidelines were followed.
[2023-02-01] MEDS: iohexoL 350 MG/ML 100 ML INFUS..BTL 60 ML IV (16:13)
== END 2023-02-01 13:38 | disposition home or self-care (01) ==
LOC: HO.CT 13:37
PROVIDERS: PCP Physician Assistant; Visit Provider Physician Assistant
DX: C67.9 Malignant neoplasm of bladder, unspecified (principal); N12 Tubulo-interstitial nephritis, not specified as acute or chronic
CPT/HCPCS: 74177; Q9967

== ENCOUNTER 2023-02-25 14:22 | Outpatient (REF) | payer MEDICARE, SELFPAY ==
[2023-02-26 13:16] LABS: BV Int Neg Control Negative (Negative); BV Int Pos Control Positive (Positive)
== END 2023-02-25 14:23 | disposition home or self-care (01) ==
LOC: HO.LAB 14:22
PROVIDERS: PCP Physician Assistant; Visit Provider Advanced Practice Midwife
DX: Z01.419 Encounter for gynecological examination (general) (routine) without abnormal findings (principal); N89.8 Other specified noninflammatory disorders of vagina
CPT/HCPCS: 87480; 87510; 87660

== ENCOUNTER 2023-02-25 14:22 | Outpatient (AMB) | payer MEDICARE, SELFPAY ==
--- OUTSIDE RECORDS SUMMARY | 2023-02-25 14:24 | XMS_ITS | Patient Health Record ---
Author Name Unknown Organization [facility] Address [address], [place] [id number] Care Team Providers Care Basic Acoustic Analyst Name Role Phone Housing, Search Primary Care Provider Moris Chen Unavailable [phone] REASON FOR REFERRAL No Information SOCIAL HISTORY Sex Assigned At : Social History Observation Description Sex Assigned At Unknown PLAN OF TREATMENT No Information Insurance Providers Payer Name Payer Address Payer Phone Subscriber Number Group Number Insured Name Patient Relationship to Insured Coverage Start Date Coverage End Date [facility] HealthNet Plan [address] [address] [place] [address] [id number] Yoko Gallardo Self - patient is the insured
--- NOTE | 2023-02-25 14:27 | MHC.OFFVIS ---
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 Present (Sunshine) Allergies lamotrigine [From Lamictal] Allergy (Mild, Verified 02/25/23 14:36) RASH doxycycline [DOXYCYCLINE] Allergy (Unknown, Verified 02/25/23 14:36) stomach upset nefazodone [From Serzone] Allergy (Unknown, Verified 02/25/23 14:36) unknown penicillin V Adverse Reaction (Unknown, Verified 02/25/23 14:36) vomitting, nausea bupropion [From Wellbutrin] Adverse Reaction (Verified 02/25/23 14:36) dizziness, shakiness Environmental Allergy (Unknown, Uncoded 12/22/22 08:07) SEASONAL NASAL DRIP, ITCHY EYES TEA Adverse Reaction (Mild, Uncoded 12/22/22 08:07) NAUSEA & VOMITING TUNA FISH Adverse Reaction (Mild, Uncoded 12/22/22 08:07) NAUSEA & VOMITIING HPI HPI Comments History of Present Illness Details She is a postmenopausal woman 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 She is doing well with concerns: Vaginal odor. Attempting to eat a healthy diet with calcium and vitamin D, and stays active with exercise. Currently sexually active. Denies any vaginal dryness or irritation. STI testing offered; she declines, she is not sexually active since her ex partner was tested in between. History of hysterectomy with some cervical abnormalities. History of HPV. Last mammogram; booked 04/2023. Colonoscopy she reports is being booked. Denies any family history of breast, ovarian or colon cancer. [facility] Medical History HLD (hyperlipidemia) Tobacco dependence GERD (gastroesophageal reflux disease) Bronchitis Narrow angle glaucoma suspect Sarcoid COPD (chronic obstructive pulmonary disease) Insomnia Depression PTSD (post-traumatic stress disorder) Bipolar 1 disorder Bladder cancer Surgical History History of dental surgery History of bladder surgery History of eye surgery Hx of hysterectomy Hx of cataract surgery Family History Father Lung cancer Mother Seizure HTN (hypertension) Diabetes mellitus Pacemaker Son In good health Maternal Grandmother Ovarian cancer Other Mental problem Social History Household Members: None Housing: Apartment Do you presently have visiting nurse or other home services: No Alcohol intake: never Patient Tobacco Use Status: Current someday Tobacco user Tobacco use type: Cigarette Cigarette Packs Per Day: 1 e-Cigarette/Vaping Use: Never Used Second Hand Smoke Exposure: No service: No Current occupational status: disabled Sexual orientation: Straight/Heterosexual Gender identity: Female Cognitive needs: No Hearing needs: No Vision needs: Yes (glasses) Female Reproductive History Menstrual Age of Menarche: 13 Total pregnancies: 4 Full term: 2 Number of Living Children: 2 Ab spontaneous: 2 Date of last pap smear: 02/10/21 (neg pap +HPV) History of abnormal pap smear: Yes Date of Mammogram: 05/08/20 (Birad 1) Review of Systems Const All systems reviewed & are unremarkable except as noted in HPI and below Reports as per HPI Eyes Reports no additional complaints ENT Reports no additional complaints Card Reports no additional complaints Resp Reports no additional complaints GI Reports as per HPI and Reports no additional complaints Reports as per HPI Musc Reports no additional complaints Skin/Breast Reports as per HPI Neuro Reports no additional complaints Psych Reports no additional complaints Endo Reports no additional complaints Kirk/Lymph Reports no additional complaints Aller/Immun Reports no additional complaints Physical Exam Vital Signs: Last Vital Signs BP 122/74 02/25/23 14:36 BMI result Body Mass Index 22.8 Const General: cooperative, healthy appearing, no acute distress, well developed and alert Orientation/consciousness: patient oriented x3 HEENT Head: Yes normal to inspection Eyes General: appearance normal, both eyes and all related structures Neck Neck: Yes normal visual inspection Thyroid: Thyroid normal Chest Chest palpation & inspection: normal inspection of the chest and other (no puckering, dimpling, peau de orange, retraction, discharge, masses) Breast/axilla inspection: normal inspection of the breasts Breast/axilla palpation: normal palpation of the breasts Resp Effort & Inspection: normal respiratory effort GI Other: Midline scar Inspection: Yes normal to inspection Palpation (GI): Soft to palpation Rectal Exam - Female: deferred General: Yes bladder normal to palpation External Female Exam: normal external appearance and normal appearance of the urethra Speculum Exam - Vagina: normal appearance of the vagina, normal palpation and normal vaginal discharge Speculum Exam - Cervix: normal appearance of the cervix and Cervix absent Bimanual exam- vagina & uterus: normal bimanual exam, normal palpation, bladder normal to palpation, uterus absent (Vaginal cuff no lesions or nodules, white discharge) and other (vag cuff no lesions or nodules) Bimanual Exam- Adnexa, other: no masses Skin General skin exam: no rashes or lesions noted Rashes: no rashes Neuro General: patient oriented x3 Cognition (Neuro): normal cognition Extrem General: Yes normal to inspection Psych Attitude: cooperative Thought process: Normal thought process present Assessment & Plan Assessment & Plan (1) Well woman exam with routine gynecological exam: Code(s): Z01.419 - Encounter for gynecological examination (general) (routine) without abnormal findings Plan: Discussed: Current recommendations for pap smears per ASCCP guidelines. Breast awareness, periodic self breast exams and yearly mammogram. Maintain a healthy lifestyle, well balanced diet including Calcium 1,200 mg and Vitamin D 600 IU daily, and routine exercise. All of her questions and concerns were addressed to the best of my ability. RTO in 1 year for annual plant pathologist exam. Coding Level of Care Code Est Pt Prev Care >65y(37857) Diagnoses Well woman exam with routine gynecological exam Z01.419
[2023-02-25 14:36] VITALS: BP 122/74; BMI 22.8
== END 2023-02-25 15:15 | disposition home or self-care (01) ==
LOC: HO.HWS 14:22
PROVIDERS: PCP Physician Assistant; Visit Provider Advanced Practice Midwife
DX: Z01.419 Encounter for gynecological examination (general) (routine) without abnormal findings (principal)
CPT/HCPCS: 99397

== ENCOUNTER 2023-02-25 15:15 | Outpatient (REF) | payer MEDICARE, SELFPAY ==
[2023-03-05 02:04] LABS: HPV mRNA E6/E7 rflx Not Detected (Not Detected)
== END 2023-02-25 15:16 | disposition home or self-care (01) ==
LOC: HO.LNP 15:15
PROVIDERS: Visit Provider Advanced Practice Midwife
DX: Z01.419 Encounter for gynecological examination (general) (routine) without abnormal findings (principal); Z11.51 Encounter for screening for human papillomavirus (HPV)
CPT/HCPCS: 87624; 88142

== ENCOUNTER 2023-02-27 09:54 | Emergency (ER) | payer MEDICARE, SELFPAY ==
--- NOTE | ~2023-02-27 | XR_ITS ---
EXAMINATION: XR CHEST CLINICAL INFORMATION: Shortness of breath COMPARISON: Previous chest x-ray November 2022 TECHNIQUE: Frontal view of the chest was obtained. FINDINGS: The cardiac and mediastinal contours are stable. The lungs are well-inflated suggestive of COPD. The lungs are clear. No pleural or thorax. Bony structures are unremarkable. XR/XR chest 1V IMPRESSION: No evidence for acute disease in the chest.
--- NOTE | 2023-02-27 09:56 | ECG_ITS ---
Test Reason : high heart rate Blood Pressure : / mmHG Vent. Rate : 069 BPM Atrial Rate : 069 BPM P-R Int : 126 ms QRS Dur : 078 ms QT Int : 382 ms P-R-T Axes : 075 051 050 degrees QTc Int : 409 ms Normal sinus rhythm Normal ECG When compared with ECG of 17-NOV-2022 10:19, No significant change was found Referred By: Generic ED Physician Electronically Signed By:MANE EDDY
[2023-02-27 10:25] VITALS: BP 110/74; PULSE 63; RESP 16; TEMP 36.5; O2SAT 100; BMI 22.7
--- OUTSIDE RECORDS SUMMARY | 2023-02-27 10:57 | XMS_ITS | Patient Health Record ---
Author Name Unknown Organization [facility] Address [address] [place], [place] [id number] Care Team Providers Care Unit Nurse Name Role Phone Housing, Search Primary Care Provider Moris Chen Unavailable [phone] REASON FOR REFERRAL No Information SOCIAL HISTORY Sex Assigned At : Social History Observation Description Sex Assigned At Unknown PLAN OF TREATMENT No Information Insurance Providers Payer Name Payer Address Payer Phone Subscriber Number Group Number Insured Name Patient Relationship to Insured Coverage Start Date Coverage End Date [facility] HealthNet Plan [address] [address] [place] [address] [id number] Yoko Gallardo Self - patient is the insured
[2023-02-27 11:07] LABS: Appearance Urine Cloudy; Color Urine Yellow; Glucose Urine UA Negative (Negative); Leukocyte Esterase Urine Moderate (2+) (Negative); Nitrite Urine Positive (Negative); PH 6.5 (5.0-9.0); UMIC TRIGGER UACC YES; Urine Blood Trace (Negative); Urine Ketones Negative (Negative); Urine Protein Negative (Neg-Trace)
[2023-02-27 11:10] LABS: Bacteria Urine 4+ (None Seen); Hyaline Casts Urine 0-2 /LPF (0-2); RBC Urine 0-2 /HPF (0-2); UACC Culture Trigger YES; WBC Urine 21-50 /HPF (0-5)
[2023-02-27 11:24] LABS: COVID-19 Test Negative (Negative); IDNOW Serial# 9DB6401D
--- NOTE | 2023-02-27 13:33 | ED.GENADULT ---
HPI - General Adult General Chief complaint: General Medical Stated complaint: rapid heart beat asthma Time Seen by Provider: 02/27/23 14:42 Source: patient Mode of arrival: ambulatory Limitations: no limitations History of Present Illness HPI narrative: 67-year-old female with a history of COPD, current tobacco smoker, diabetes, anxiety, hyperlipidemia, depression, recurrent urinary tract infections presents to the ER with complaints of urinary frequency, dysuria, urgency. Patient reports she self caths at home. She does have history of frequent urinary tract infections has been hospitalized for same. She denies any associated back pain, abdominal pain, vomiting, fevers or chills. Patient does report chronic SOB but no chest pain, cough, leg swelling or leg pain. Related Data Home Medications Medication Instructions Recorded Confirmed metoprolol tartrate 25 mg tablet 12.5 mg PO BID 02/09/20 12/22/22 cyclosporine 0.05 % eye drops in a 1 drp ophthalmic (eye) Q12H 02/10/21 12/22/22 dropperette (Restasis) atorvastatin 40 mg tablet 40 mg PO DAILY 06/23/22 12/22/22 methenamine hippurate 1 gram tablet 1 g PO DAILY 08/25/22 12/22/22 omeprazole 20 mg capsule,delayed 20 mg PO DAILY@0630 08/25/22 12/22/22 release propylene glycol 1 %-glycerin 0.3 1 drp ophthalmic (eye) TID 08/25/22 12/22/22 % eye drops (Artificial Tears (glycerin-peg)) oxcarbazepine 300 mg tablet 300 mg PO BID 12/18/22 12/22/22 duloxetine 30 mg capsule,delayed 30 mg PO DAILY 02/25/23 release Previous Rx's Medication Instructions Recorded ascorbic acid (vitamin C) 500 mg 500 mg PO DAILY 90 days #90 tabs 12/16/20 tablet fluticasone propionate 110 110 mcg inhalation BID 30 days #12 06/23/22 mcg/actuation HFA aerosol inhaler grams cholecalciferol (vitamin D3) 25 25 mcg PO DAILY #30 caps 11/26/22 mcg (1,000 unit) capsule (Vitamin D3) cetirizine 10 mg tablet 10 mg PO DAILY 90 days #90 tabs 12/18/22 albuterol sulfate 90 mcg/actuation 2 puff inhalation Q4H PRN 12/22/22 aerosol inhaler shortness of breath or wheezing 30 days #8.5 grams ferrous sulfate 325 mg (65 mg 325 mg PO DAILY 90 days #90 tabs 12/22/22 iron) tablet cefuroxime axetil 500 mg tablet 500 mg PO BID #14 tabs 02/27/23 Allergies Allergy/AdvReac Type Severity Reaction Status Date / Time lamotrigine [From Lamictal] Allergy Mild RASH Verified 02/25/23 14:36 doxycycline [DOXYCYCLINE] Allergy Unknown stomach Verified 02/25/23 14:36 upset nefazodone [From Serzone] Allergy Unknown unknown Verified 02/25/23 14:36 penicillin V AdvReac Unknown vomitting, Verified 02/25/23 14:36 nausea bupropion [From Wellbutrin] AdvReac dizziness, Verified 02/25/23 14:36 shakiness Environmental Allergy Unknown SEASONAL Uncoded 12/22/22 08:07 NASAL DRIP, ITCHY EYES TEA AdvReac Mild NAUSEA & Uncoded 12/22/22 08:07 VOMITING TUNA FISH AdvReac Mild NAUSEA & Uncoded 12/22/22 08:07 VOMITIING Review of Systems Review of Systems: Yes all other systems are reviewed and are negative Constitutional: Constitutional: Reports no additional constitutional complaints, Denies body ache(s), Denies chills, Denies fever(s), Denies headache(s) and Denies weakness Eyes: Eyes: Reports no additional eye complaints and Denies change in vision ENT: Reports system reviewed and no additional complaints, except as documented, Denies dizziness, Denies headache(s), Denies nasal congestion, Denies nasal discharge and Denies neck pain Cardiovascular: Cardiovascular: Reports no additional cardiovascular complaints, Denies chest pain, Denies leg edema and Reports dyspnea Respiratory: Respiratory: Reports no additional respiratory complaints, Denies cough and Reports dyspnea Gastrointestinal: Gastrointestinal: Reports no additional gastrointestinal complaints, Denies abdominal pain, Denies diarrhea, Denies nausea and Denies vomiting Genitourinary: Genitourinary: Reports no additional female genitourinary complaints, Denies hematuria, Reports dysuria, Denies flank pain, Denies urinary incontinence, Denies urinary hesitancy, Reports urinary urgency and Denies vaginal discharge Musculoskeletal: Musculoskeletal: Reports no additional musculoskeletal complaints, Denies back pain, Denies arthralgias, Denies joint swelling, Denies neck pain, Denies numbness and Denies tingling Integumentary/Breasts: Skin/Breast: Reports system reviewed and no additional complaints, except as docu and Denies rash Neurologic: Reports system reviewed and no additional complaints, except as documented, Denies Abnormal speech present, Denies dizziness, Denies headache(s), Denies numbness, Denies tingling and Denies weakness [facility] Past Medical History Attestation statement: The following information was validated with the patient. Source: old records reviewed and nursing notes reviewed Medical History HLD (hyperlipidemia) Tobacco dependence GERD (gastroesophageal reflux disease) Bronchitis Narrow angle glaucoma suspect Sarcoid COPD (chronic obstructive pulmonary disease) Insomnia Depression PTSD (post-traumatic stress disorder) Bipolar 1 disorder Bladder cancer Surgical History History of dental surgery History of bladder surgery History of eye surgery Hx of hysterectomy Hx of cataract surgery Family History Family History Father Lung cancer Mother Seizure HTN (hypertension) Diabetes mellitus Pacemaker Son In good health Maternal Grandmother Ovarian cancer Other Mental problem Social History Social History Household Members: None Housing: Apartment Do you presently have visiting nurse or other home services: No Alcohol intake: never Patient Tobacco Use Status: Current someday Tobacco user Tobacco use type: Cigarette Cigarette Packs Per Day: 1 e-Cigarette/Vaping Use: Never Used Second Hand Smoke Exposure: No Advance Directives: Yes Advance Directives on File: Yes Advance Directives Date on File: 08/28/22 service: No Current occupational status: disabled Sexual orientation: Straight/Heterosexual Gender identity: Female Cognitive needs: No Hearing needs: No Vision needs: Yes (glasses) Physical Exam ED Vital Signs: Vital Signs - 24 hr 02/27/23 10:25 Temperature 97.7 F Pulse Rate 63 Respiratory Rate 16 Blood Pressure 110/74 Pulse Oximetry 100 Oxygen Delivery Method Room Air BMI result Body Mass Index 22.7 Const General: cooperative, healthy appearing, comfortable and no acute distress Orientation/consciousness: patient oriented x3 Limitations: no limitations HENMT Head: Yes normal to inspection Ears: hearing grossly normal bilaterally General nose exam: Normal external nose present Face and sinus: Yes normal facial exam Mouth: Normal oral and palatal mucosa present Throat: Yes posterior oropharynx normal Eyes General: appearance normal, both eyes and all related structures Pupils: Equal, round and reactive pupils present Neck Neck: Yes normal visual inspection Chest Chest palpation & inspection: normal inspection of the chest Resp Effort & Inspection: normal respiratory effort Auscultation: clear to auscultation bilaterally Cardio Rate: regular rate Rhythm: regular rhythm Peripheral pulses: Peripheral pulses 2+ throughout GI Inspection: Yes normal to inspection Palpation (GI): Soft to palpation and nontender Auscultation: normal bowel sounds Back/Spine/Pelvis Thoracic/Lumbar Spine: thoracic and lumbar spine normal to inspection Skin General skin exam: no rashes or lesions noted Neuro General: patient oriented x3, no focal motor deficits and normal sensation to monofilament Cranial nerves: Yes Equal, round and reactive pupils present Cognition (Neuro): normal cognition Speech: No Abnormal speech present Gait exam (Neuro): Normal gait present Motor exam (neuro): 5/5 motor strength present throughout Extrem General: Yes normal to inspection Course Course Course Narrative: This is a rapid medical exam. Defer additional HPI, ROS, PE to prior provider. 67-year-old female here with multiple complaints including rapid heart rate, feeling lightheaded and dizzy, difficulty breathing as well as concern for urinary tract infection. Will need labs, EKG, UA. Vitals stable Reevaluation(s) Reevaluation #1: EKG nonischemic. Flat troponin. UA is consistent with UTI. Normal renal function. Patient had multiple attempts to obtain a CBC with these are unsuccessful. Patient reports she has to go home to take care of her son who has special needs. She does not appear to be toxic and is afebrile, tolerating p.o.. Therefore I will send her home with oral antibiotic with strict return precautions. Reviewed worrisome signs and symptoms of when to return to the emergency room. Comfortable plan for discharge home Medical Decision Making Medical Decision Making MDM Narrative: 67-year-old female with a history of COPD, current tobacco smoker, diabetes, anxiety, hyperlipidemia, depression, recurrent urinary tract infections presents to the ER with complaints of urinary frequency, dysuria, urgency. Patient reports she self caths at home. She does have history of frequent urinary tract infections has been hospitalized for same. She denies any associated back pain, abdominal pain, vomiting, fevers or chills. Patient does report chronic SOB but no chest pain, cough, leg swelling or leg pain. On exam lungs are clear. Vitals are stable. There is no CVA tenderness or focal abdominal pain on exam. Will obtain EKG, CXR, covid screen, labs, UA Differential Diagnosis Differential Diagnoses: The differential diagnosis associated with the presentation includes COPD Low concern for PE, pneumonia, ACS UTI Low concern for pyelonephritis, renal colic Admission/Observation Consideration of admission/observation: Escalation of care including admission/observation considered Patient afebrile, nontoxic appearing with mild urinary tract infection. I can send her home with oral antibiotics with strict return for p precautions for any worsening symptoms Lab Data MDM Lab Attestation statement: I reviewed the patient's lab results. 02/27/23 13:43 Labs: Lab Results 02/27/23 02/27/23 Range/Units 10:58 13:43 Sodium 140 (135-145) mmol/L Potassium 4.5 D (3.3-5.1) mmol/L Chloride 109 H (96-108) mmol/L Carbon Dioxide 23 (22-29) mmol/L Anion Gap 13 (12-20) BUN 20 H (9-16) mg/dL Creatinine 0.70 (0.5-1.4) mg/dL Estim Creat Clear Calc 65.4 Estimated GFR > 60 Random Glucose 81 (60-115) mg/dL Calcium 9.4 (8.4-10.2) mg/dL Magnesium 2.1 (1.6-2.6) mg/dL Troponin I High Sens < 2.7 (<3.5-17.0) ng/L Urine Color Yellow Urine Appearance Cloudy Urine pH 6.5 (5.0-9.0) Ur Specific [place] 1.010 (1.005-1.025) Urine Protein Negative (Neg-Trace) mg/dL Urine Glucose (UA) Negative (Negative) mg/dL Urine Ketones Negative (Negative) mg/dL Urine Blood Trace H (Negative) Urine Nitrite Positive H (Negative) Ur Leukocyte Esterase Moderate (2+) H (Negative) Urine RBC 0-2 (0-2) /HPF Urine WBC 21-50 H (0-5) /HPF Ur Squamous Epith Cells 6-10 (0-2) /HPF Urine Bacteria 4+ (None Seen) Hyaline Casts 0-2 (0-2) /LPF COVID-19 (SAM) Negative (Negative) COVID-19 Clin Com See Note Independent Interpretation I performed an independent interpretation of an: EKG and Plain X-Ray Interpretation: I independently reviewed the x-ray and agree with the radiology report I independently normal sinus rhythm with a rate of 69, normal DC, normal QRS, normal QT Radiology Impression Discussion of test interpretation with radiology: I have reviewed the radiologist's reading. Radiologist Impression: [address] [address] XRay Report Signed Patient: Yoko Gallardo MR#: [id number] : 1955 Acct:[id number] Age/Sex: 67 / F ADM Date: 02/27/23 Loc: .ED Attending Dr: Ordering Physician: Generic ED Physician Date of Service: 02/27/23 Procedure(s): XR chest 1V Accession Number(s): [id number] cc: Petros Verduzco PA-C; Generic ED Physician~ EXAMINATION: XR CHEST CLINICAL INFORMATION: Shortness of breath COMPARISON: Previous chest x-ray November 2022 TECHNIQUE: Frontal view of the chest was obtained. FINDINGS: The cardiac and mediastinal contours are stable. The lungs are well-inflated suggestive of COPD. The lungs are clear. No pleural or thorax. Bony structures are unremarkable. XR/XR chest 1V IMPRESSION: No evidence for acute disease in the chest. Discharge Plan Discharge Clinical Impression: Acute UTI Patient Disposition: Home, Self-Care Instructions: Urinary Tract Infection in Women (ED) Additional Instructions: Take your antibiotics as prescribed Return for fever, weakness, worsening symptoms. We did send urine culture. Will call you if we need to change your antibiotic. Prescriptions: New cefuroxime axetil 500 mg tablet 500 mg PO BID Qty: 14 0RF No Action ascorbic acid (vitamin C) 500 mg tablet 500 mg PO DAILY 90 Days Qty: 90 3RF Artificial Tears(glycerin-peg) 1-0.3 % Drops 1 drp OPHTHALMIC (EYE) TID methenamine hippurate 1 gram tablet 1 g PO DAILY Rx Instructions: PT HELD WHILE ON ABX omeprazole 20 mg capsule,delayed release(DR/EC) 20 mg PO DAILY@0630 atorvastatin 40 mg tablet 40 mg PO DAILY fluticasone propionate 110 mcg/actuation HFA aerosol inhaler 110 mcg inhalation BID 30 Days Qty: 12 3RF ferrous sulfate 325 mg (65 mg iron) tablet 325 mg PO DAILY 90 Days Qty: 90 0RF albuterol sulfate 90 mcg/actuation HFA aerosol inhaler 2 puff inhalation Q4H PRN (Reason: shortness of breath or wheezing) 30 Days Qty: 8.5 3RF cetirizine 10 mg tablet 10 mg PO DAILY 90 Days Qty: 90 1RF oxcarbazepine 300 mg tablet 300 mg PO BID Rx Instructions: 1 tablet in the morning and 2 tablets at bedtime cholecalciferol (vitamin D3) [Vitamin D3] 25 mcg (1,000 unit) capsule 25 mcg PO DAILY Qty: 30 3RF Restasis 0.05 % dropperette 1 drp ophthalmic (eye) Q12H metoprolol tartrate 25 mg tablet 12.5 mg PO BID duloxetine 30 mg capsule,delayed release(DR/EC) 30 mg PO DAILY Interventions: ED Discharge Assessment Last Done: 02/27/23 14:46 Discharge Date/Time: 02/27/23 14:46
[2023-02-27 14:04] LABS: Anion Gap 13 (12-20); Blood Urea Nitrogen 20 mg/dL (9-16); Calcium 9.4 mg/dL (8.4-10.2); Carbon Dioxide 23 mmol/L (22-29); Chloride 109 mmol/L (96-108); Creatinine Clr Calc Pharmacy 65.4; Estimated Glomerular Filt Rate > 60; Glucose Random 81 mg/dL (60-115); Magnesium 2.1 mg/dL (1.6-2.6); Potassium 4.5 mmol/L (3.3-5.1); Sodium 140 mmol/L (135-145)
[2023-02-27 14:13] LABS: Troponin-I High Sensitivity < 2.7 ng/L (<3.5-17.0)
== END 2023-02-27 14:46 | disposition home or self-care (01) ==
PROVIDERS: Emergency Provider Emergency Medicine Emergency Medical Services; PCP Physician Assistant
DX: N39.0 Urinary tract infection, site not specified (principal); R30.0 Dysuria; J44.9 Chronic obstructive pulmonary disease, unspecified; E11.9 Type 2 diabetes mellitus without complications; E78.5 Hyperlipidemia, unspecified; R06.02 Shortness of breath; Z87.440 Personal history of urinary (tract) infections; Z72.0 Tobacco use; Z79.899 Other long term (current) drug therapy
CPT/HCPCS: 36415; 71045; 80048; 81001; 83735; 84484; 87086; 87088; 87186; 87635; 93005; 99283; 99284

== ENCOUNTER → 2023-02-27 09:56 | Outpatient (BNV) | payer MEDICARE, SELFPAY | PROVIDERS: Emergency Provider Emergency Medicine Emergency Medical Services; PCP Physician Assistant; Visit Provider Internal Medicine | DX: R00.0 Tachycardia, unspecified (principal) | CPT/HCPCS: 93010 ==

== ENCOUNTER 2023-02-27 23:11 | Emergency (ER) | payer MEDICARE, OTHER, SELFPAY ==
[2023-02-27 23:20] VITALS: BP 124/74; BP 142/90; PULSE 64; PULSE 73; RESP 18; TEMP 36.6; O2SAT 100; BMI 23.6
--- NOTE | 2023-02-27 23:26 | ED.GENADULT ---
HPI - General Adult General Chief complaint: Dizziness Stated complaint: dizzy, light headed, per ems Time Seen by Provider: 02/27/23 23:23 Source: patient Mode of arrival: ambulatory Limitations: no limitations History of Present Illness HPI narrative: Patient diabetic, COPD with recurrent urine tract infection for at least last 2 years had bladder augmentation in 2000 and been self catheterizing since then. Patient was seen by intranet support 2 days ago vaginal cultures were done which were negative for Trichomonas positive for Gardnerella. Patient was seen here earlier today for urinary symptoms with dysuria and frequency for last 3 days , no fever but feels chills inside , temperature was 96 degrees at home, did not get a dose of antibiotic in the ER before discharge today and the pharmacy is closed came back as she is not feeling good afraid that she may get sepsis which she had before. Urine culture on 11/17 showed Enterobacter cloacae and previously shown Proteus mirabilis, no ESBL. No vomiting no significant abdominal pain no flank pain Related Data Home Medications Medication Instructions Recorded Confirmed metoprolol tartrate 25 mg tablet 12.5 mg PO BID 02/09/20 12/22/22 cyclosporine 0.05 % eye drops in a 1 drp ophthalmic (eye) Q12H 02/10/21 12/22/22 dropperette (Restasis) atorvastatin 40 mg tablet 40 mg PO DAILY 06/23/22 12/22/22 methenamine hippurate 1 gram tablet 1 g PO DAILY 08/25/22 12/22/22 omeprazole 20 mg capsule,delayed 20 mg PO DAILY@0630 08/25/22 12/22/22 release propylene glycol 1 %-glycerin 0.3 1 drp ophthalmic (eye) TID 08/25/22 12/22/22 % eye drops (Artificial Tears (glycerin-peg)) oxcarbazepine 300 mg tablet 300 mg PO BID 12/18/22 12/22/22 duloxetine 30 mg capsule,delayed 30 mg PO DAILY 02/25/23 release Previous Rx's Medication Instructions Recorded ascorbic acid (vitamin C) 500 mg 500 mg PO DAILY 90 days #90 tabs 12/16/20 tablet fluticasone propionate 110 110 mcg inhalation BID 30 days #12 06/23/22 mcg/actuation HFA aerosol inhaler grams cholecalciferol (vitamin D3) 25 25 mcg PO DAILY #30 caps 11/26/22 mcg (1,000 unit) capsule (Vitamin D3) cetirizine 10 mg tablet 10 mg PO DAILY 90 days #90 tabs 12/18/22 albuterol sulfate 90 mcg/actuation 2 puff inhalation Q4H PRN 12/22/22 aerosol inhaler shortness of breath or wheezing 30 days #8.5 grams ferrous sulfate 325 mg (65 mg 325 mg PO DAILY 90 days #90 tabs 12/22/22 iron) tablet cefuroxime axetil 250 mg tablet 250 mg PO BID 10 days #20 tabs 02/28/23 Allergies Allergy/AdvReac Type Severity Reaction Status Date / Time lamotrigine [From Lamictal] Allergy Mild RASH Verified 02/27/23 23:22 doxycycline [DOXYCYCLINE] Allergy Unknown stomach Verified 02/27/23 23:22 upset nefazodone [From Serzone] Allergy Unknown unknown Verified 02/27/23 23:22 penicillin V AdvReac Unknown vomitting, Verified 02/27/23 23:22 nausea bupropion [From Wellbutrin] AdvReac dizziness, Verified 02/27/23 23:22 shakiness Environmental Allergy Unknown SEASONAL Uncoded 02/27/23 23:22 NASAL DRIP, ITCHY EYES TEA AdvReac Mild NAUSEA & Uncoded 02/27/23 23:22 VOMITING TUNA FISH AdvReac Mild NAUSEA & Uncoded 02/27/23 23:22 VOMITIING Review of Systems Review of Systems: Yes all other systems are reviewed and are negative PMFSH Past Medical History Medical History HLD (hyperlipidemia) Tobacco dependence GERD (gastroesophageal reflux disease) Bronchitis Narrow angle glaucoma suspect Sarcoid COPD (chronic obstructive pulmonary disease) Insomnia Depression PTSD (post-traumatic stress disorder) Bipolar 1 disorder Bladder cancer Surgical History History of dental surgery History of bladder surgery History of eye surgery Hx of hysterectomy Hx of cataract surgery Family History Family History Father Lung cancer Mother Seizure HTN (hypertension) Diabetes mellitus Pacemaker Son In good health Maternal Grandmother Ovarian cancer Other Mental problem Social History Social History Household Members: None Housing: Apartment Do you presently have visiting nurse or other home services: No Alcohol intake: current Alcohol intake frequency: holidays/special occasions only Patient Tobacco Use Status: Current someday Tobacco user Tobacco use type: Cigarette Cigarette Packs Per Day: 1 Smoked in Last 30 Days: Yes e-Cigarette/Vaping Use: Never Used Second Hand Smoke Exposure: No Advance Directives: Yes Advance Directives on File: Yes Advance Directives Date on File: 08/28/22 service: No Current occupational status: disabled Sexual orientation: Straight/Heterosexual Gender identity: Female Cognitive needs: No Hearing needs: No Vision needs: Yes (glasses) Physical Exam ED Vital Signs: Vital Signs - 24 hr 02/27/23 23:20 02/28/23 00:28 Temperature 97.8 F 97.9 F Pulse Rate 64 60 Respiratory Rate 18 18 Blood Pressure 124/74 113/65 Pulse Oximetry 100 98 Oxygen Delivery Method Room Air Room Air BMI result Body Mass Index 23.6 Appearance: Alert. Oriented X3. No acute distress. Eyes: No pallor/icterus ENT: Pharynx normal. Oral Mucosa moist Neck: Normal inspection. Neck supple. CVS: Normal heart rate and rhythm. Pulses normal. Respiratory: No respiratory distress. Equal air entry bilateral, no wheezing/rales/rhonchi Abdomen: Soft and nontender. Bowel sounds are present, no mass palpable, no CVA tenderness Skin: Skin warm and dry. Normal skin color. Normal skin turgor. Extremities: No lower extremity edema. No calf tenderness Neuro: Oriented X 3. Medications Administered Discontinued Medications Generic Name Dose Route Start Last Admin Trade Name Joséq PRN Reason Stop Dose Admin Sodium Chloride 1,000 mls @ 999 mls/hr 02/27/23 23:35 02/27/23 23:53 Ns IV 02/28/23 00:35 999 mls/hr .Q1H1M ONE Administration Ceftriaxone Sodium 1 gm/ 50 mls @ 100 mls/hr 02/27/23 23:35 02/27/23 23:59 Sodium Chloride IV 02/28/23 00:04 100 mls/hr ONCE ONE Administration Medical Decision Making Medical Decision Making MDM Narrative: Patient with UTI with history of recurrent infection IV Rocephin was given in the ER lactic acid normal no sign of sepsis, patient had labs earlier today which were negative. discharge patient home on cefuroxime Differential Diagnosis Differential Diagnoses: The differential diagnosis associated with the presentation includes UTI/pyelonephritis/cystitis Lab Data MDM Lab Attestation statement: I reviewed the patient's lab results. Labs: Lab Results 02/27/23 Range/Units 23:47 Lactic Acid 0.7 (0.5-2.0) mmol/L Discharge Plan Discharge Clinical Impression: Acute UTI Patient Disposition: Home, Self-Care Instructions: Catheter-associated Urinary Tract Infection (ED) Additional Instructions: Drink plenty of fluids Take antibiotic as prescribed Prescriptions: New cefuroxime axetil 250 mg tablet 250 mg PO BID 10 Days Qty: 20 0RF Discontinued cefuroxime axetil 500 mg tablet 500 mg PO BID Qty: 14 0RF No Action ascorbic acid (vitamin C) 500 mg tablet 500 mg PO DAILY 90 Days Qty: 90 3RF Artificial Tears(glycerin-peg) 1-0.3 % Drops 1 drp OPHTHALMIC (EYE) TID methenamine hippurate 1 gram tablet 1 g PO DAILY Rx Instructions: PT HELD WHILE ON ABX omeprazole 20 mg capsule,delayed release(DR/EC) 20 mg PO DAILY@0630 atorvastatin 40 mg tablet 40 mg PO DAILY fluticasone propionate 110 mcg/actuation HFA aerosol inhaler 110 mcg inhalation BID 30 Days Qty: 12 3RF ferrous sulfate 325 mg (65 mg iron) tablet 325 mg PO DAILY 90 Days Qty: 90 0RF albuterol sulfate 90 mcg/actuation HFA aerosol inhaler 2 puff inhalation Q4H PRN (Reason: shortness of breath or wheezing) 30 Days Qty: 8.5 3RF cetirizine 10 mg tablet 10 mg PO DAILY 90 Days Qty: 90 1RF oxcarbazepine 300 mg tablet 300 mg PO BID Rx Instructions: 1 tablet in the morning and 2 tablets at bedtime cholecalciferol (vitamin D3) [Vitamin D3] 25 mcg (1,000 unit) capsule 25 mcg PO DAILY Qty: 30 3RF Restasis 0.05 % dropperette 1 drp ophthalmic (eye) Q12H metoprolol tartrate 25 mg tablet 12.5 mg PO BID duloxetine 30 mg capsule,delayed release(DR/EC) 30 mg PO DAILY
[2023-02-27] MEDS: 0.9 % Sodium Chloride 1,000 ML 999 ML IV (23:53)
[2023-02-27] MEDS: cefTRIAXone sodium 1 GM in 0.9 % Sodium Chloride 50 ML IV (23:59)
[2023-02-28 00:05] LABS: Lactic Acid 0.7 mmol/L (0.5-2.0)
--- NOTE | 2023-02-28 00:06 | PC.NURSE ---
pt biba from home reporting onset of dizziness around 7pm. pt denies any falls and LOC. pt reports the dizziness feels like lightheadedness. pt denies n/v/d. pt reports being seen and discharged from [facility] on 02/27 for a UTI. pt reports the pharmacy was closed and was unable to get her antibiotics to begin taking. pt normal sinus on tele 63-68 at this time. Iv initiated, labs obtained and sent.
[2023-02-28 00:28] VITALS: BP 113/65; PULSE 60; RESP 18; TEMP 36.6; O2SAT 98
[2023-02-28 00:51] VITALS: BP 149/86; PULSE 86; RESP 18; O2SAT 98
== END 2023-02-28 00:52 | disposition home or self-care (01) ==
PROVIDERS: Emergency Provider Internal Medicine
DX: N39.0 Urinary tract infection, site not specified (principal)
CPT/HCPCS: 36415; 83605; 87040; 96365; 99284; 99285; J0696

== ENCOUNTER 2023-03-05 04:01 | Emergency (ER) | payer MEDICARE, OTHER, SELFPAY ==
[2023-03-05 04:06] VITALS: BP 148/76; PULSE 66; RESP 18; TEMP 36.4; O2SAT 97; BMI 22.7
--- NOTE | 2023-03-05 04:24 | ED.FEMALEGU ---
HPI - Female Genitourinary General Chief complaint: Urogenital-Female Stated complaint: uti Time Seen by Provider: 03/05/23 04:17 Source: patient Mode of arrival: ambulatory Limitations: no limitations History of Present Illness HPI Narrative: Patient comes emergency room complaining of ongoing dysuria and suprapubic discomfort. Patient was seen on 02/27/2023 for a UTI, patient tested positive for Klebsiella pneumonia UTI. Sensitive to cefuroxime which patient has been taking. Patient denies fever chills, no flank pain Related Data Home Medications Medication Instructions Recorded Confirmed metoprolol tartrate 25 mg tablet 12.5 mg PO BID 02/09/20 12/22/22 cyclosporine 0.05 % eye drops in a 1 drp ophthalmic (eye) Q12H 02/10/21 12/22/22 dropperette (Restasis) atorvastatin 40 mg tablet 40 mg PO DAILY 06/23/22 12/22/22 methenamine hippurate 1 gram tablet 1 g PO DAILY 08/25/22 12/22/22 omeprazole 20 mg capsule,delayed 20 mg PO DAILY@0630 08/25/22 12/22/22 release propylene glycol 1 %-glycerin 0.3 1 drp ophthalmic (eye) TID 08/25/22 12/22/22 % eye drops (Artificial Tears (glycerin-peg)) oxcarbazepine 300 mg tablet 300 mg PO BID 12/18/22 12/22/22 duloxetine 30 mg capsule,delayed 30 mg PO DAILY 02/25/23 release Previous Rx's Medication Instructions Recorded ascorbic acid (vitamin C) 500 mg 500 mg PO DAILY 90 days #90 tabs 12/16/20 tablet fluticasone propionate 110 110 mcg inhalation BID 30 days #12 06/23/22 mcg/actuation HFA aerosol inhaler grams cholecalciferol (vitamin D3) 25 25 mcg PO DAILY #30 caps 11/26/22 mcg (1,000 unit) capsule (Vitamin D3) cetirizine 10 mg tablet 10 mg PO DAILY 90 days #90 tabs 12/18/22 albuterol sulfate 90 mcg/actuation 2 puff inhalation Q4H PRN 12/22/22 aerosol inhaler shortness of breath or wheezing 30 days #8.5 grams ferrous sulfate 325 mg (65 mg 325 mg PO DAILY 90 days #90 tabs 12/22/22 iron) tablet cefuroxime axetil 250 mg tablet 250 mg PO BID 10 days #20 tabs 02/28/23 metronidazole 0.75 % (37.5 mg/5 1 appful vaginal BEDTIME 5 days 03/02/23 gram) vaginal gel #70 grams cefuroxime axetil 500 mg tablet 500 mg PO BID #10 tabs 03/05/23 phenazopyridine 100 mg tablet 100 mg PO TID 6 doses #6 tabs 03/05/23 Allergies Allergy/AdvReac Type Severity Reaction Status Date / Time lamotrigine [From Lamictal] Allergy Mild RASH Verified 02/27/23 23:22 doxycycline [DOXYCYCLINE] Allergy Unknown stomach Verified 02/27/23 23:22 upset nefazodone [From Serzone] Allergy Unknown unknown Verified 02/27/23 23:22 penicillin V AdvReac Unknown vomitting, Verified 02/27/23 23:22 nausea bupropion [From Wellbutrin] AdvReac dizziness, Verified 02/27/23 23:22 shakiness Environmental Allergy Unknown SEASONAL Uncoded 02/27/23 23:22 NASAL DRIP, ITCHY EYES TEA AdvReac Mild NAUSEA & Uncoded 02/27/23 23:22 VOMITING TUNA FISH AdvReac Mild NAUSEA & Uncoded 02/27/23 23:22 VOMITIING Review of Systems Review of Systems: Constitutional : No Weight loss, No Fever, No Chills, No Night Sweats, No Fatigue, No Malaise ENT/Mouth : No Hearing loss, No Ear Pain, No Nasal Congestion, No Sinus Pain, No Hoarseness, No sore throat, No Rhinorrhea, No Swallowing Difficulty Eyes: No Eye Pain, No Swelling, No Redness, No Foreign Body, No Discharge, No Vision Changes Cardiovascular : No Chest Pain, No SOB, No Dyspnea on Exertion, No Orthopnea, No Edema, No Palpitations Respiratory : No Cough, No Sputum, No Wheezing, No Smoke Exposure, No Dyspnea Gastrointestinal : No Nausea, No Vomiting, No Diarrhea, No Constipation, complaining of suprapubic discomfort without significant abdominal Pain, No Hematochezia, No Melena Genitourinary : no irregular bleeding, complaining of ongoing dysuria, No Urinary Frequency, No Hematuria, No Urinary Incontinence, No Urgency, No Flank Pain, No Urinary Flow Changes, No Hesitancy Musculoskeletal : No joint pain, No Myalgias, No Joint Swelling Skin : No Skin Lesions, No rash Neuro : No Weakness, No Numbness, No Paresthesias, No Loss of Consciousness, No Dizziness, No Headache Psych : No Anxiety/Panic, No Depression, No SI/HI/AH/VH, No Social Issues, Heme/Lymph: No Bruising, No Bleeding,No Lymphadenopathy Endocrine : No Polyuria, No Polydipsia, No Temperature Intolerance [facility] Past Medical History Medical History HLD (hyperlipidemia) Tobacco dependence GERD (gastroesophageal reflux disease) Bronchitis Narrow angle glaucoma suspect Sarcoid COPD (chronic obstructive pulmonary disease) Insomnia Depression PTSD (post-traumatic stress disorder) Bipolar 1 disorder Bladder cancer Surgical History History of dental surgery History of bladder surgery History of eye surgery Hx of hysterectomy Hx of cataract surgery Family History Family History Father Lung cancer Mother Seizure HTN (hypertension) Diabetes mellitus Pacemaker Son In good health Maternal Grandmother Ovarian cancer Other Mental problem Social History Social History Household Members: None Housing: Apartment Do you presently have visiting nurse or other home services: No Alcohol intake: current Alcohol intake frequency: holidays/special occasions only Patient Tobacco Use Status: Current someday Tobacco user Tobacco use type: Cigarette Cigarette Packs Per Day: 1 Smoked in Last 30 Days: Yes e-Cigarette/Vaping Use: Never Used Second Hand Smoke Exposure: No Use of substances other than those prescribed or required for medical reasons: No Advance Directives: Yes Advance Directives on File: Yes Advance Directives Date on File: 08/28/22 Patient : No service: No Current occupational status: disabled Sexual orientation: Straight/Heterosexual Gender identity: Female Cognitive needs: No Hearing needs: No Vision needs: Yes (glasses) Physical Exam Vital Signs: Vital Signs: Last Vital Signs Temp 97.5 F 03/05/23 04:06 Pulse 95 03/05/23 06:12 Resp 22 H 03/05/23 06:12 BP 154/66 H 03/05/23 06:12 Pulse Ox 95 03/05/23 06:12 O2 Del Method Room Air 03/05/23 06:12 BMI result Body Mass Index 22.7 Const: Other: Appearance: Alert. Oriented X3. No acute distress. Eyes: Pupils equal, round and reactive to light. ENT: Pharynx normal. Neck: Normal inspection. Neck supple. No lymph nodes noted. No crepitus CVS: Normal heart rate and rhythm. Pulses normal. Normal S1 and S2 Respiratory: No respiratory distress. Breath sounds normal. No Wheezing. No rales Abdomen: Soft, discomfort to palpation suprapubic area, no rigidity, no distention, no rebound or guarding Skin: Skin warm and dry. Normal skin color. Normal skin turgor. Extremities: No lower extremity edema. No Lacerations. No Rash Neuro: Oriented X 3. No motor deficit. No sensory deficit. Moving all extremities. No slurred speech. CN 2 through 12 grossly intact Psych: calm, cooperative, normal affect Medical Decision Making Medical Decision Making [facility] Narrative: -my interpretation of labs: Normal hematology, chemistry at baseline -urinalysis : Patient still has a UTI, however it looks better than previous UTI. Patient is on the correct antibiotic. We will extend her course of antibiotics. Patient is not septic, patient clinically does not have pyelonephritis. Differential Diagnosis Differential Diagnoses: The differential diagnosis associated with the presentation includes (UTI, pyelonephritis) Lab Data [facility] Lab Attestation statement: I reviewed the patient's lab results. 03/05/23 04:47 03/05/23 04:48 Labs: Lab Results 03/05/23 03/05/23 03/05/23 Range/Units 04:47 04:48 06:32 WBC 5.6 (4.8-10.8) X10*3/uL RBC 4.17 L (4.20-5.50) X10*6/uL Hgb 13.3 (12.0-16.0) g/dl Hct 41.4 (37.0-47.0) % MCV 99.3 H (80.0-98.0) fL MCH 31.9 (27.0-33.0) pg MCHC 32.1 (31.0-35.0) g/dl RDW 13.2 (11.0-16.0) % Plt Count 194 (160-400) X10*3/uL MPV 10.6 (9.4-12.3) fL Immature Gran % (Auto) 0.0 (0.0-0.4) % Neut % (Auto) 49.2 (45-73) % Lymph % (Auto) 36.9 (20-40) % [place] % (Auto) 10.5 (2-11) % Eos % (Auto) 2.3 (0-4) % Baso % (Auto) 1.1 (0-2) % Lymph # (Auto) 2.1 (1.2-4.9) X10*3/uL [place] # (Auto) 0.6 (0.1-1.2) X10*3/uL Eos # (Auto) 0.1 (0.0-0.4) X10*3/uL Baso # (Auto) 0.1 (0.0-0.2) X10*3/uL Abs Immat Gran (auto) 0.00 (0.00-0.03) X10*3/uL Absolute Neuts (auto) 2.7 (2.0-8.3) x10*3/uL Absolute Nucleated RBC 0.000 (0.0-0.012) X10*3/uL Nucleated RBC % (auto) 0.0 (0.0-0.2) /100WBC Sodium 142 (135-145) mmol/L Potassium 4.6 (3.3-5.1) mmol/L Chloride 108 (96-108) mmol/L Carbon Dioxide 24 (22-29) mmol/L Anion Gap 15 (12-20) BUN 17 H (9-16) mg/dL Creatinine 0.65 (0.5-1.4) mg/dL Estim Creat Clear Calc 70.4 Estimated GFR > 60 Random Glucose 85 (60-115) mg/dL Lactic Acid 0.8 (0.5-2.0) mmol/L Calcium 9.4 (8.4-10.2) mg/dL Total Bilirubin 0.3 (0.0-1.0) mg/dL Direct Bilirubin 0.1 (0.0-0.5) mg/dL AST 24 (5-31) U/L ALT 9 (0-31) U/L Alkaline Phosphatase 90 (39-117) U/L Total Protein 7.3 (6.5-8.0) g/dL Albumin 4.0 (3.5-5.0) g/dL Urine Color Yellow Urine Appearance Clear Urine pH 6.0 (5.0-9.0) Ur Specific [place] 1.015 (1.005-1.025) Urine Protein Negative (Neg-Trace) mg/dL Urine Glucose (UA) Negative (Negative) mg/dL Urine Ketones Negative (Negative) mg/dL Urine Blood Small (1+) H (Negative) Urine Nitrite Negative (Negative) Ur Leukocyte Esterase Trace H (Negative) Urine RBC 6-10 H (0-2) /HPF Urine WBC 21-50 H (0-5) /HPF Ur Squamous Epith Cells 3-5 (0-2) /HPF Urine Bacteria None Seen (None Seen) Hyaline Casts 0-2 (0-2) /LPF Urine Opiates Screen (Not Detect) Urine Fentanyl Screen (Not Detect) Ur Barbiturates Screen (Not Detect) Ur Phencyclidine Scrn (Not Detect) Ur Amphetamines Screen (Not Detect) U Benzodiazepines Scrn (Not Detect) Urine Cocaine Screen (Not Detect) U Marijuana (THC) Screen (Not Detect) Ethyl Alcohol < 10 mg/dL 03/05/23 Range/Units 06:33 WBC (4.8-10.8) X10*3/uL RBC (4.20-5.50) X10*6/uL Hgb (12.0-16.0) g/dl Hct (37.0-47.0) % MCV (80.0-98.0) fL MCH (27.0-33.0) pg MCHC (31.0-35.0) g/dl RDW (11.0-16.0) % Plt Count (160-400) X10*3/uL MPV (9.4-12.3) fL Immature Gran % (Auto) (0.0-0.4) % Neut % (Auto) (45-73) % Lymph % (Auto) (20-40) % [place] % (Auto) (2-11) % Eos % (Auto) (0-4) % Baso % (Auto) (0-2) % Lymph # (Auto) (1.2-4.9) X10*3/uL [place] # (Auto) (0.1-1.2) X10*3/uL Eos # (Auto) (0.0-0.4) X10*3/uL Baso # (Auto) (0.0-0.2) X10*3/uL Abs Immat Gran (auto) (0.00-0.03) X10*3/uL Absolute Neuts (auto) (2.0-8.3) x10*3/uL Absolute Nucleated RBC (0.0-0.012) X10*3/uL Nucleated RBC % (auto) (0.0-0.2) /100WBC Sodium (135-145) mmol/L Potassium (3.3-5.1) mmol/L Chloride (96-108) mmol/L Carbon Dioxide (22-29) mmol/L Anion Gap (12-20) BUN (9-16) mg/dL Creatinine (0.5-1.4) mg/dL Estim Creat Clear Calc Estimated GFR Random Glucose (60-115) mg/dL Lactic Acid (0.5-2.0) mmol/L Calcium (8.4-10.2) mg/dL Total Bilirubin (0.0-1.0) mg/dL Direct Bilirubin (0.0-0.5) mg/dL AST (5-31) U/L ALT (0-31) U/L Alkaline Phosphatase (39-117) U/L Total Protein (6.5-8.0) g/dL Albumin (3.5-5.0) g/dL Urine Color Urine Appearance Urine pH (5.0-9.0) Ur Specific [place] (1.005-1.025) Urine Protein (Neg-Trace) mg/dL Urine Glucose (UA) (Negative) mg/dL Urine Ketones (Negative) mg/dL Urine Blood (Negative) Urine Nitrite (Negative) Ur Leukocyte Esterase (Negative) Urine RBC (0-2) /HPF Urine WBC (0-5) /HPF Ur Squamous Epith Cells (0-2) /HPF Urine Bacteria (None Seen) Hyaline Casts (0-2) /LPF Urine Opiates Screen Not Detected (Not Detect) Urine Fentanyl Screen Not Detected (Not Detect) Ur Barbiturates Screen Not Detected (Not Detect) Ur Phencyclidine Scrn Not Detected (Not Detect) Ur Amphetamines Screen Not Detected (Not Detect) U Benzodiazepines Scrn Not Detected (Not Detect) Urine Cocaine Screen Not Detected (Not Detect) U Marijuana (THC) Screen Not Detected (Not Detect) Ethyl Alcohol mg/dL Discharge Plan Discharge Clinical Impression: Acute UTI Patient Disposition: Home, Self-Care Instructions: Urinary Tract Infection in Women (ED) Additional Instructions: Your urinary tract infection is improving, you are taking the correct antibiotic. We will go ahead and extend your antibiotic course for 5 more days. Please follow-up with your primary care physician tomorrow. If you have any worsening or new symptoms, please return to the emergency room or call 911 Prescriptions: New cefuroxime axetil 500 mg tablet 500 mg PO BID Qty: 10 0RF phenazopyridine 100 mg tablet 100 mg PO TID Qty: 6 0RF Rx Instructions: This medication will make your urine look very orange or red No Action ascorbic acid (vitamin C) 500 mg tablet 500 mg PO DAILY 90 Days Qty: 90 3RF metronidazole 0.75 % (37.5mg/5 gram) gel 1 appful vaginal BEDTIME 5 Days Qty: 70 0RF Artificial Tears(glycerin-peg) 1-0.3 % Drops 1 drp OPHTHALMIC (EYE) TID methenamine hippurate 1 gram tablet 1 g PO DAILY Rx Instructions: PT HELD WHILE ON ABX omeprazole 20 mg capsule,delayed release(DR/EC) 20 mg PO DAILY@0630 cefuroxime axetil 250 mg tablet 250 mg PO BID 10 Days Qty: 20 0RF atorvastatin 40 mg tablet 40 mg PO DAILY fluticasone propionate 110 mcg/actuation HFA aerosol inhaler 110 mcg inhalation BID 30 Days Qty: 12 3RF ferrous sulfate 325 mg (65 mg iron) tablet 325 mg PO DAILY 90 Days Qty: 90 0RF albuterol sulfate 90 mcg/actuation HFA aerosol inhaler 2 puff inhalation Q4H PRN (Reason: shortness of breath or wheezing) 30 Days Qty: 8.5 3RF cetirizine 10 mg tablet 10 mg PO DAILY 90 Days Qty: 90 1RF oxcarbazepine 300 mg tablet 300 mg PO BID Rx Instructions: 1 tablet in the morning and 2 tablets at bedtime cholecalciferol (vitamin D3) [Vitamin D3] 25 mcg (1,000 unit) capsule 25 mcg PO DAILY Qty: 30 3RF Restasis 0.05 % dropperette 1 drp ophthalmic (eye) Q12H metoprolol tartrate 25 mg tablet 12.5 mg PO BID duloxetine 30 mg capsule,delayed release(DR/EC) 30 mg PO DAILY
[2023-03-05 04:54] LABS: MANUAL DIFF FLAG NO
[2023-03-05 04:55] LABS: Basophils Absolute Auto 0.1 X10*3/uL (0.0-0.2); Basophils Percent Auto 1.1 % (0-2); Eosinophils Absolute Auto 0.1 X10*3/uL (0.0-0.4); Eosinophils Percent Auto 2.3 % (0-4); Hematocrit 41.4 % (37.0-47.0); Hemoglobin 13.3 g/dl (12.0-16.0); Lymphocytes Absolute Auto 2.1 X10*3/uL (1.2-4.9); Lymphocytes Percent Auto 36.9 % (20-40); Mean Corpuscular HGB Conc 32.1 g/dl (31.0-35.0); Mean Corpuscular Hemoglobin 31.9 pg (27.0-33.0); Mean Corpuscular Volume 99.3 fL (80.0-98.0); Mean Platelet Volume 10.6 fL (9.4-12.3); Monocytes Absolute Auto 0.6 X10*3/uL (0.1-1.2); Monocytes Percent Auto 10.5 % (2-11); Neutrophils Absolute Auto 2.7 x10*3/uL (2.0-8.3); Neutrophils Percent Auto 49.2 % (45-73); Platelet Count 194 X10*3/uL (160-400); Red Blood Count 4.17 X10*6/uL (4.20-5.50); Red Cell Distribution Width 13.2 % (11.0-16.0); White Blood Count 5.6 X10*3/uL (4.8-10.8)
[2023-03-05 05:07] LABS: Lactic Acid 0.8 mmol/L (0.5-2.0)
[2023-03-05 05:13] LABS: Alanine Aminotransferase 9 U/L (0-31); Alkaline Phosphatase 90 U/L (39-117); Anion Gap 15 (12-20); Aspartate Amino Transferase 24 U/L (5-31); Bilirubin Direct 0.1 mg/dL (0.0-0.5); Bilirubin Total 0.3 mg/dL (0.0-1.0); Blood Urea Nitrogen 17 mg/dL (9-16); Calcium 9.4 mg/dL (8.4-10.2); Carbon Dioxide 24 mmol/L (22-29); Chloride 108 mmol/L (96-108); Creatinine Clr Calc Pharmacy 70.4; Estimated Glomerular Filt Rate > 60; Ethanol < 10 mg/dL; Glucose Random 85 mg/dL (60-115); Potassium 4.6 mmol/L (3.3-5.1); Sodium 142 mmol/L (135-145); Total Protein 7.3 g/dL (6.5-8.0)
[2023-03-05 06:12] VITALS: BP 154/66; PULSE 95; RESP 22; O2SAT 95
[2023-03-05 06:52] LABS: Appearance Urine Clear; Color Urine Yellow; Glucose Urine UA Negative (Negative); Leukocyte Esterase Urine Trace (Negative); Nitrite Urine Negative (Negative); Specific Gravity - Urine 1.015 (1.005-1.025); UMIC TRIGGER UACC YES; Urine Blood Small (1+) (Negative); Urine Ketones Negative (Negative); Urine Protein Negative (Neg-Trace)
[2023-03-05 06:57] LABS: Bacteria Urine None Seen (None Seen); Hyaline Casts Urine 0-2 /LPF (0-2); UACC Culture Trigger YES; WBC Urine 21-50 /HPF (0-5)
[2023-03-05 07:02] LABS: Amphetamine Screen Urine Not Detected (Not Detect); Barbiturates, Urine Not Detected (Not Detect); Benzodiazepines Screen Urine Not Detected (Not Detect); Cannabinoid Screen Urine Not Detected (Not Detect); Cocaine Screen Urine Not Detected (Not Detect); Fentanyl, urine Not Detected (Not Detect); Opiate Screen Urine Not Detected (Not Detect); Phencyclidine Screen Urine Not Detected (Not Detect)
[2023-03-05 07:17] VITALS: BP 130/75; PULSE 68; RESP 16; TEMP 36.7; O2SAT 96
== END 2023-03-05 07:34 | disposition home or self-care (01) ==
PROVIDERS: Emergency Medicine; Emergency Provider Emergency Medicine Emergency Medical Services; PCP Physician Assistant
DX: N39.0 Urinary tract infection, site not specified (principal); R30.0 Dysuria; R10.2 Pelvic and perineal pain; Z79.899 Other long term (current) drug therapy
CPT/HCPCS: 36415; 80048; 80076; 80307; 81001; 83605; 85025; 87040; 87086; 99284